=== PATIENT | male | born 1935 | race Caucasian/White ===

== ENCOUNTER → 2016-10-10 | Outpatient (CLI) | payer MEDICARE, BC | LOC: OD 10:29 | PROVIDERS: ATTEND Family Medicine | DX: R06.89 Other abnormalities of breathing (principal) | CPT/HCPCS: 71020 ==

== ENCOUNTER → 2017-04-28 | Outpatient (CLI) | payer MEDICARE, BC ==
--- NOTE | 2017-04-28 10:28 | RADIOLOGY REPORT (SQ) ---
EXAM DESCRIPTION: ARTERIAL LOWER EXTREM BILAT; [employer]TD; [employer] PRO COMPLETED DATE/TIME: 04/28/2017 10:06 am REASON FOR STUDY: PAD I70.25 ATHSCL [place] ARTERIES OF EXTREMITIES W ULCERATION COMPARISON: None. TECHNIQUE: Dynamic and static hernandez scale and color images acquired of the lower extremity arteries. Additional selected spectral images recorded. ABIs recorded. LIMITATIONS: None. FINDINGS: RIGHT LEG: ABIS: 0.92 to 1.02. INFLOW ARTERIES: Normal, no obstruction evident. FEMORAL ARTERIES:Multiphasic waveforms. Normal, no velocity elevation to suggest focal stenosis. Norm al color Doppler evaluation. No aneurysm. POPLITEAL ARTERY:Biphasic waveforms. Normal, no velocity elevation to suggest focal stenosis. Normal color Doppler evaluation. No aneurysm. PATENT TIBIOPERONEAL TRUNK AND 3 VESSEL RUNOFF: Biphasic waveforms with normal color flow TBI: Not performed. OTHER: Right toe plethysmography demonstrates pulsatility. There is decreased amplitude of the wave forms and delayed upstroke indicating mild small vessel disease LEFT LEG: ABIS: 0.92 to 1.17 INFLOW ARTERIES: Normal, no obstruction evident. FEMORAL ARTERIES:Multiphasic waveforms. Normal, no velocity elevation to suggest focal stenosis. Norm al color Doppler evaluation. No aneurysm. POPLITEAL ARTERY:Multiphasic waveforms. Normal, no velocity elevation to suggest focal stenosis. Norm al color Doppler evaluation. No aneurysm. PATENT TIBIOPERONEAL TRUNK AND 3 VESSEL RUNOFF: Yes, normal vessels. TBI: Not performed. OTHER: Left toe plethysmography demonstrates pulsatility. There is decreased amplitude of the wavef orms and delayed upstroke indicating mild small vessel disease. IMPRESSION: NORMAL BILATERAL LOWER EXTREMITY ARTERIAL DOPPLER WITH ABIs. COMMENT: [facility] NORMAL: Greater than 1.0 MINIMAL DISEASE: 0.9 to 1.0 CLAUDICATION: 0.5 to 0.9 SEVERE ARTERIAL DISEASE: Less than 0.5 [facility] NORMAL: Greater than 1.0 (1.2 If Heavy Calcifications) NORMAL TO MILD ISCHEMIA: 0.8 to 1.0 MODERATE ISCHEMIA: 0.4 to 0.8 SEVERE ISCHEMIA: Less than 0.4 TECHNICAL DOCUMENTATION: JOB ID: [id number]- All Rights Reserved
--- NOTE | 2017-04-28 10:28 | RADIOLOGY REPORT (SQ) ---
EXAM DESCRIPTION: ARTERIAL LOWER EXTREM BILAT; [employer]; [employer] PRO COMPLETED DATE/TIME: 04/28/2017 10:06 am REASON FOR STUDY: PAD I70.25 ATHSCL [place] ARTERIES OF EXTREMITIES W ULCERATION COMPARISON: None. TECHNIQUE: Dynamic and static hernandez scale and color images acquired of the lower extremity arteries. Additional selected spectral images recorded. ABIs recorded. LIMITATIONS: None. FINDINGS: RIGHT LEG: ABIS: 0.92 to 1.02. INFLOW ARTERIES: Normal, no obstruction evident. FEMORAL ARTERIES:Multiphasic waveforms. Normal, no velocity elevation to suggest focal stenosis. Norm al color Doppler evaluation. No aneurysm. POPLITEAL ARTERY:Biphasic waveforms. Normal, no velocity elevation to suggest focal stenosis. Normal color Doppler evaluation. No aneurysm. PATENT TIBIOPERONEAL TRUNK AND 3 VESSEL RUNOFF: Biphasic waveforms with normal color flow TBI: Not performed. OTHER: Right toe plethysmography demonstrates pulsatility. There is decreased amplitude of the wave forms and delayed upstroke indicating mild small vessel disease LEFT LEG: ABIS: 0.92 to 1.17 INFLOW ARTERIES: Normal, no obstruction evident. FEMORAL ARTERIES:Multiphasic waveforms. Normal, no velocity elevation to suggest focal stenosis. Norm al color Doppler evaluation. No aneurysm. POPLITEAL ARTERY:Multiphasic waveforms. Normal, no velocity elevation to suggest focal stenosis. Norm al color Doppler evaluation. No aneurysm. PATENT TIBIOPERONEAL TRUNK AND 3 VESSEL RUNOFF: Yes, normal vessels. TBI: Not performed. OTHER: Left toe plethysmography demonstrates pulsatility. There is decreased amplitude of the wavef orms and delayed upstroke indicating mild small vessel disease. IMPRESSION: NORMAL BILATERAL LOWER EXTREMITY ARTERIAL DOPPLER WITH ABIs. COMMENT: [facility] NORMAL: Greater than 1.0 MINIMAL DISEASE: 0.9 to 1.0 CLAUDICATION: 0.5 to 0.9 SEVERE ARTERIAL DISEASE: Less than 0.5 [facility] NORMAL: Greater than 1.0 (1.2 If Heavy Calcifications) NORMAL TO MILD ISCHEMIA: 0.8 to 1.0 MODERATE ISCHEMIA: 0.4 to 0.8 SEVERE ISCHEMIA: Less than 0.4 TECHNICAL DOCUMENTATION: JOB ID: [id number]- All Rights Reserved
--- NOTE | 2017-04-28 10:28 | RADIOLOGY REPORT (SQ) ---
EXAM DESCRIPTION: ARTERIAL LOWER EXTREM BILAT; [employer] LTD; [employer] ARTERIAL PRO COMPLETED DATE/TIME: 04/28/2017 10:06 am REASON FOR STUDY: PAD I70.25 ATHSCL [place] ARTERIES OF EXTREMITIES W ULCERATION COMPARISON: None. TECHNIQUE: Dynamic and static hernandez scale and color images acquired of the lower extremity arteries. Additional selected spectral images recorded. ABIs recorded. LIMITATIONS: None. FINDINGS: RIGHT LEG: ABIS: 0.92 to 1.02. INFLOW ARTERIES: Normal, no obstruction evident. FEMORAL ARTERIES:Multiphasic waveforms. Normal, no velocity elevation to suggest focal stenosis. Norm al color Doppler evaluation. No aneurysm. POPLITEAL ARTERY:Biphasic waveforms. Normal, no velocity elevation to suggest focal stenosis. Normal color Doppler evaluation. No aneurysm. PATENT TIBIOPERONEAL TRUNK AND 3 VESSEL RUNOFF: Biphasic waveforms with normal color flow TBI: Not performed. OTHER: Right toe plethysmography demonstrates pulsatility. There is decreased amplitude of the wave forms and delayed upstroke indicating mild small vessel disease LEFT LEG: ABIS: 0.92 to 1.17 INFLOW ARTERIES: Normal, no obstruction evident. FEMORAL ARTERIES:Multiphasic waveforms. Normal, no velocity elevation to suggest focal stenosis. Norm al color Doppler evaluation. No aneurysm. POPLITEAL ARTERY:Multiphasic waveforms. Normal, no velocity elevation to suggest focal stenosis. Norm al color Doppler evaluation. No aneurysm. PATENT TIBIOPERONEAL TRUNK AND 3 VESSEL RUNOFF: Yes, normal vessels. TBI: Not performed. OTHER: Left toe plethysmography demonstrates pulsatility. There is decreased amplitude of the wavef orms and delayed upstroke indicating mild small vessel disease. IMPRESSION: NORMAL BILATERAL LOWER EXTREMITY ARTERIAL DOPPLER WITH ABIs. COMMENT: [facility] NORMAL: Greater than 1.0 MINIMAL DISEASE: 0.9 to 1.0 CLAUDICATION: 0.5 to 0.9 SEVERE ARTERIAL DISEASE: Less than 0.5 [facility] NORMAL: Greater than 1.0 (1.2 If Heavy Calcifications) NORMAL TO MILD ISCHEMIA: 0.8 to 1.0 MODERATE ISCHEMIA: 0.4 to 0.8 SEVERE ISCHEMIA: Less than 0.4 TECHNICAL DOCUMENTATION: JOB ID: [id number]- All Rights Reserved
== END ==
LOC: SP 08:22
PROVIDERS: ATTEND Preventive Medicine Undersea and Hyperbaric Medicine
DX: I70.25 Atherosclerosis of native arteries of other extremities with ulceration (principal)
CPT/HCPCS: 93922; 93925

== ENCOUNTER → 2017-11-12 | Outpatient (CLI) | payer MEDICARE, BC ==
[~2017-11-12] MED LIST: REGADENOSON INJ 0.4 MG/5 ML DISP.SYRIN IV ONE
--- NOTE | 2017-11-13 11:58 | DRAGON STRESS TEST REPORT ---
INTRAVENOUS LEXISCAN CARDIOLITE STRESS TEST USING SINGLE PHOTON EMMISION COMPUTERIZED TOMOGRAPHIC. DATE OF PROCEDURE: November 12, 2017, INDICATION : Coronary artery disease and shortness of breath CARDIAC RISK FACTORS: Coronary artery disease status post CABG RESTING EKG: Atrial fibrillation with ventricular paced beats on baseline EKG STRESS EKG: No significant changes noted with LexiScan bolus REASON FOR TERMINATION: Protocol. PROCEDURE REPORT: Baseline heart rate 67 beats per minute with blood pressure of 119/62. Patient had no significant complaints. Heart rate at 2 minutes post bolus 93 with a blood pressure of 134/69. 3 minutes post bolus heart rate 81 with blood pressure of 140/71. No significant EKG changes were noted. Patient had no significant complaints during the procedure or postprocedure. Patient injected with Aminophyllin 75 mg at 3 minutes or later after Lexiscan bolus. CONCLUSIONS: Normal EKG and hemodynamic response to IV LexiScan. NUCLEAR DATA: At rest the patient was given 12 6.92 millicuries of technetium 99 sestamibi injected intravenously. As per protocol rest gated SPECT images were obtained. On day of stress test, the patient was given intravenous LexiScan at a dose of 0.4 mg in 5 mL intravenously, followed by flush with normal saline. Subsequently the stress dose of 36.5 millicuries of technetium 99 sestamibi was injected intravenously. As per protocol stress gated images were obtained. NUCLEAR INTERPRETATION: Both raw and processed data were used for interpretation. Visual, qualitative, computer-generated quantitative data was used. There was good myocardial uptake of technetium compound. Motion artifact and soft tissue attenuations were noted. Increased visceral uptake was noted. A small area of transient perfusion defect noted in the inferoapex consistent with mild ischemia, SDS of 1 therefore may not be clinically significant., No definitive areas of fixed perfusion defect or scars noted. EKG gated imaging showed LV EF at 57 %, rest and stress gated EF similar visually. T. I D. ratio was 0.98. Lung heart ratio noted to be within normal limits 0.31. No significant extracardiac and abnormal radiotracer activities were noted. RV free wall uptake was noted to be WNL. IMPRESSION: Also refer to comments under nuclear interpretation. Also test results needs to be interpreted in the context of pretest probability. 1. Small area of transient perfusion defect noted in the inferoapex consistent with mild ischemia, SDS of 1 therefore may not be clinically significant. 2. There is no definitive scintigraphic evidence of myocardial infarction/scar. 3. EKG gated imaging shows left ventricular ejection fraction of approx. 57 %. 4. Clinical correlation requested as occasionally single vessel disease or balanced ischemia could be missed. In approximately 10% of the cases Lexiscan may not cause adequate vasodilatory stress. RECOMMENDATIONS: Aggressive risk factor modification and medical management. Further evaluation may be needed if continued symptoms or other high risk indicators are noted on clinical evaluation. Close cardiology follow-up is also recommended. Clinical correlation with echocardiogram derived ejection fraction. Inability to exercise by itself can lead to increased cardiovascular event risks. Consider cardiology consultation and or follow-up if clinically indicated. I am available for cardiology evaluation and consultation if requested by the manager automotive, unless patient already has a shuttle filler. DAWIT
== END ==
LOC: RAD 07:33
PROVIDERS: ATTEND Internal Medicine Cardiovascular Disease
DX: I25.10 Atherosclerotic heart disease of native coronary artery without angina pectoris (principal); R06.02 Shortness of breath
CPT/HCPCS: 93017; 78452; A9500; J2785; Q9969

== ENCOUNTER → 2017-12-23 | Outpatient (CLI) | payer MEDICARE, BC ==
[2017-12-23 17:06] LABS: ANION GAP 11 (5-19); BLOOD UREA NITROGEN 25 mg/dL (7-20); CALCIUM 10.2 mg/dL (8.4-10.2); CARBON DIOXIDE 30 mmol/L (22-30); CHLORIDE 98 mmol/L (98-107); GLUCOSE 97 mg/dL (75-110); POTASSIUM 4.7 mmol/L (3.6-5.0); SODIUM 139.3 mmol/L (137-145)
== END ==
LOC: OD 16:17
PROVIDERS: ATTEND Internal Medicine Cardiovascular Disease
DX: I10 Essential (primary) hypertension (principal)
CPT/HCPCS: 36415; 80048

== ENCOUNTER → 2018-01-19 | Outpatient (CLI) | payer MEDICARE, BC ==
--- NOTE | 2018-01-19 14:35 | RADIOLOGY REPORT (SQ) ---
EXAM DESCRIPTION: CHEST PA/LATERAL COMPLETED DATE/TIME: 01/19/2018 12:07 pm REASON FOR STUDY: RALES COMPARISON: 10/10/2016 EXAM PARAMETERS: NUMBER OF VIEWS: two views TECHNIQUE: Digital Frontal and Lateral radiographic views of the chest acquired. RADIATION DOSE: NA LIMITATIONS: none FINDINGS: LUNGS AND PLEURA: COPD. No evidence of pulmonary edema or pneumonia. MEDIASTINUM AND HILAR STRUCTURES: No masses or contour abnormalities. HEART AND VASCULAR STRUCTURES: Stable heart size. BONES: No acute findings. HARDWARE: CABG. Pacemaker. OTHER: No other significant finding. IMPRESSION: No acute findings in the chest. TECHNICAL DOCUMENTATION: JOB ID: [id number] [employer]- All Rights Reserved Reading location - IP/workstation name: [email or web address]
== END ==
LOC: OD 11:57
PROVIDERS: ATTEND Family Medicine
DX: R09.89 Other specified symptoms and signs involving the circulatory and respiratory systems (principal)
CPT/HCPCS: 71046

== ENCOUNTER 2018-10-02 09:25 | Observation (INO) | payer MEDICARE, BC ==
--- NOTE | 2018-10-02 10:02 | ER Document Report ---
ED Hand/Wrist Injury - General Chief Complaint: Wrist Injury Stated Complaint: WRIST PAIN Time Seen by Provider: 10/02/18 09:54 Mode of Arrival: Ambulatory Information source: Patient Notes: 82-year-old male presents emergency department with complaints of right wrist pain for the last 2 days. Patient states that 2 days ago he was "goofing off" and fell landing on his right wrist. He immediately began having some pain. Patient states that he has been icing the area and taking [id number] medication for symptom relief. He states that the pain is still there as well as warmth, redness, and swelling. Patient denies any head injury or loss of consciousness. He denies any numbness, tingling. Pain is worse with movement of the wrist. No alleviating factors. TRAVEL OUTSIDE OF THE [place] IN LAST 30 DAYS: No - HPI Injury to: Wrist Onset: Last week Where: Home Timing: Constant Quality of pain: Achy Severity: Moderate Pain Level: Denies Context: Fall - Related Data Allergies/Adverse Reactions: oxycodone [From OxyContin] Allergy (Verified 10/02/18 09:26) Past Medical History - General Information source: Patient - Social History Smoking Status: Former Smoker Family History: Reviewed & Not Pertinent - Past Medical History Cardiac Medical History: Reports: Hx Atrial Fibrillation, Hx Congestive Heart Failure, Hx Coronary Artery Disease, Hx Hypertension Endocrine Medical History: Reports: Hx Diabetes Mellitus Type 2 Malignancy Medical History: Reports Hx Prostate Cancer Psychiatric Medical History: Reports: Hx Anxiety, Hx Depression Past Surgical History: Reports: Hx Cardiac Catheterization, Hx Cardiac Surgery, Hx Coronary Artery Bypass Graft, Hx Herniorrhaphy, Hx Pacemaker Review of Systems - Review of Systems Constitutional: No symptoms reported EENT: No symptoms reported Cardiovascular: No symptoms reported Respiratory: No symptoms reported Gastrointestinal: No symptoms reported Genitourinary: No symptoms reported Musculoskeletal: Joint swelling Skin: No symptoms reported Hematologic/Lymphatic: No symptoms reported Neurological/Psychological: No symptoms reported -: Yes All other systems reviewed and negative Physical Exam - Vital signs Vitals: Temp Pulse Resp BP Pulse Ox 97.6 F 88 17 156/66 H 100 10/02/18 09:29 10/02/18 09:29 10/02/18 09:29 10/02/18 09:29 10/02/18 09:29 - Notes Notes: PHYSICAL EXAMINATION: GENERAL: Well-appearing, well-nourished and in no acute distress. HEAD: Atraumatic, normocephalic. EYES: Pupils equal round and reactive to light, extraocular movements intact, sclera anicteric, conjunctiva are normal. ENT: Nares patent, oropharynx clear without exudates. Moist mucous membranes. NECK: Normal range of motion, supple without lymphadenopathy LUNGS: Breath sounds clear to auscultation bilaterally and equal. No wheezes rales or rhonchi. HEART: Regular rate and rhythm without murmurs ABDOMEN: Soft, nontender, nondistended abdomen. No guarding, no rebound. No masses appreciated. Musculoskeletal: Right dorsal wrist erythema, warmth, swelling and tenderness to palpation. 2+ radial pulse. Right hand is neurologically intact. Pain with movement of the right wrist both active and passive. Small pinpoint abrasions to the dorsal wrist. NEUROLOGICAL: Cranial nerves grossly intact. Normal speech, normal gait. Normal sensory, motor exams PSYCH: Normal mood, normal affect. SKIN: Warm, Dry, normal turgor, no rashes or lesions noted. Course - Re-evaluation Re-evalutation: 10/02/18 12:45 Patient has significant pain with passive movement of the right wrist. White blood cell count was normal. CRP and ESR are both elevated. Blood cultures obtained. Patient was started on vancomycin and Rocephin for possible septic joint. I spoke with Dr. Ponce, orthopedic surgery. He states that he will consult on the patient. I spoke with the hospitalist. Dr. Gambino is agreeable with admission. 10/02/18 12:46 10/02/18 13:01 - Vital Signs Vital signs: Temp Pulse Resp BP Pulse Ox 97.6 F 88 17 156/66 H 100 10/02/18 09:29 10/02/18 09:29 10/02/18 09:29 10/02/18 09:29 10/02/18 09:29 - Laboratory Result Diagrams: 10/02/18 11:05 10/02/18 11:05 Laboratory results interpreted by me: 10/02/18 10/02/18 11:05 11:05 RBC 3.82 L Hgb 11.3 L Hct 33.9 L RDW 15.6 H ESR 76 H BUN 27 H Glucose 112 H ALT 20 L C-Reactive Protein 28.4 H Discharge - Discharge Clinical Impression: Septic arthritis Qualifiers: Septic arthritis location: wrist Septic arthritis organism: due to unspecified organism Laterality: right Qualified Code(s): M00.9 - Pyogenic arthritis, unspecified Condition: Stable Disposition: ADMITTED OBSERVATION Admitting Provider: Hospitalist Unit Admitted: Medical Floor Referrals: DORETHA VERA MD [Primary Care Provider] - Follow up as needed
--- NOTE | 2018-10-02 10:36 | RADIOLOGY REPORT (SQ) ---
EXAM DESCRIPTION: WRIST RIGHT 3 VIEWS COMPLETED DATE/TIME: 10/02/2018 10:25 am REASON FOR STUDY: trauma COMPARISON: None. NUMBER OF VIEWS: Three views. TECHNIQUE: AP, lateral, and oblique radiographic images acquired of the right wrist. LIMITATIONS: None. FINDINGS: MINERALIZATION: Normal. BONES: No acute fracture or dislocation. No worrisome bone lesions. Normal alignment. SOFT TISSUES: No soft tissue swelling. No foreign body. OTHER: No other significant finding. IMPRESSION: NEGATIVE STUDY OF THE RIGHT WRIST. NO RADIOGRAPHIC EVIDENCE OF ACUTE INJURY. TECHNICAL DOCUMENTATION: JOB ID: [id number] [employer]- All Rights Reserved Reading location - IP/workstation name: [email or web address] [id number]
[2018-10-02 11:29] LABS: ABSOLUTE EOSINOPHILS # (AUTO) 0.1 10^3/uL (0.0-0.6); ABSOLUTE LYMPHOCYTES (AUTO) 1.2 10^3/uL (0.5-4.7); ABSOLUTE MONOCYTES (AUTO) 0.9 10^3/uL (0.1-1.4); ABSOLUTE NEUT (AUTO) 6.1 10^3/uL (1.7-8.2); BASOPHILS % (AUTO) 0.5 % (0-2); EOSINOPHILS % (AUTO) 1.7 % (0-6); HEMATOCRIT 33.9 % (37.9-51.0); HEMOGLOBIN 11.3 g/dL (13.5-17.0); LYMPHOCYTES % (AUTO) 13.9 % (13-45); MEAN CORPUSCULAR HEMOGLOBIN 29.7 pg (27.0-33.4); MEAN CORPUSCULAR HGB CONC 33.4 g/dL (32.0-36.0); MEAN CORPUSCULAR VOLUME 89 fl (80-97); MONOCYTES % (AUTO) 10.7 % (3-13); PLATELET COUNT 199 10^3/uL (150-450); RED BLOOD COUNT 3.82 10^6/uL (4.35-5.55); RED CELL DISTRIBUTION WIDTH 15.6 % (11.5-14.0); SEGMENTED NEUTROPHILS % (AUTO) 73.2 % (42-78); TOTAL CELLS COUNTED % (AUTO) 100 %; WHITE BLOOD COUNT 8.3 10^3/uL (4.0-10.5)
[2018-10-02 11:58] LABS: ALANINE AMINOTRANSFERASE 20 U/L (21-72); ALBUMIN 4.5 g/dL (3.5-5.0); ALKALINE PHOSPHATASE 58 U/L (38-126); ANION GAP 10 (5-19); ASPARTATE AMINO TRANSFERASE 24 U/L (17-59); BILIRUBIN,DIRECT 0.2 mg/dL (0.0-0.4); BILIRUBIN,TOTAL 0.6 mg/dL (0.2-1.3); BLOOD UREA NITROGEN 27 mg/dL (7-20); C-REACTIVE PROTEIN 28.4 mg/L (<10.0); CALCIUM 9.8 mg/dL (8.4-10.2); CARBON DIOXIDE 30 mmol/L (22-30); CHLORIDE 100 mmol/L (98-107); GLUCOSE 112 mg/dL (75-110); POTASSIUM 4.9 mmol/L (3.6-5.0); SODIUM 139.9 mmol/L (137-145); TOTAL PROTEIN 7.9 g/dL (6.3-8.2)
[2018-10-02 12:08] LABS: ERYTHROCYTE SEDIMENTATION RATE 76 mm/hr (0-20)
[2018-10-02] MEDS ORDERED: VANCOMYCIN HCL INJ 1000 MG VIAL IV ONE (12:39)
[2018-10-02] MEDS ORDERED: CEFTRIAXONE INJ 1000 MG VIAL IV ONE (12:41)
[2018-10-02] MEDS ORDERED: MAGNESIUM HYDROXIDE SUSP 30 ML UDCUP PO PRN (14:33)
[2018-10-02] MEDS ORDERED: IPRATROPIUM/ALBUTEROL 0.5-2.5 MG/3 ML AMPUL NEB PRN (14:33)
[2018-10-02] MEDS ORDERED: ONDANSETRON 4 MG TAB.RAPDIS PO PRN (14:33)
[2018-10-02] MEDS ORDERED: ACETAMINOPHEN 325 MG TABLET PO PRN (14:33)
[2018-10-02] MEDS ORDERED: FLUOCINONIDE 0.05% CREAM 15 GM TP PRN (14:39)
[2018-10-02] MEDS ORDERED: DEXTROSE 40% GEL 15 GM TUBE PO PRN ×2 (14:40)
[2018-10-02] MEDS ORDERED: GLUCAGON,HUMAN RECOMB 1 MG INJ IM PRN (14:40)
[2018-10-02] MEDS ORDERED: INSULIN LISPRO 100 UNIT/ML 3 ML VIAL SUBCUT PRN (14:40)
[2018-10-02] MEDS ORDERED: DEXTROSE 50%-WATER 25 GM/50 ML DISP.SYRIN IV PRN ×2 (14:40)
[2018-10-02] MEDS ORDERED: TRAMADOL HCL 50 MG TABLET PO PRN (15:15)
--- NOTE | 2018-10-02 15:15 | PDOC H&P ---
History of Present Illness Admission Date/PCP: 10/02/18 13:54 DORETHA VERA MD Patient complains of: This gentleman presents to the emergency room with complaints of right wrist pain for the last 2 days History of Present Illness: ANAHI DOWNING JR is a 82 year old male This gentleman presents to the emergency room with complaints of right wrist pain for the last 2 days.. Patient said he fell and landed on his right wrist and has had progressive pain since then the hand is described as red, as well as swelling and is unable to bend. X-ray done in the emergency room reveals no acute pathology. There is evidence of a fracture. Of note patient says he is on Xarelto for atrial fibrillation Past Medical History Cardiac Medical History: Reports: Atrial Fibrillation, Congestive Heart Failure, Coronary Artery Disease, Hypertension Endocrine Medical History: Reports: Diabetes Mellitus Type 2 Psychiatric Medical History: Reports: Depression Past Surgical History Past Surgical History: Reports: Cardiac Catheterization, Coronary Artery Bypass Graft, Herniorrhaphy, Pacemaker Social History Information Source: Patient Lives with: Family Smoking Status: Former Smoker - Advance Directive Resuscitation Status: Full Code Family History Family History: Reviewed & Not Pertinent Parental Family History Reviewed: Yes Children Family History Reviewed: Yes Sibling(s) Family History Reviewed.: Yes Medication/Allergy Home Medications: Aspirin [Ecotrin 81 mg EC Tablet] 81 mg PO DAILY 10/02/18 Atorvastatin Calcium [Lipitor 20 mg Tablet] 20 mg PO QHS 10/02/18 Calcium Carb/D3/Magnesium/Zinc [You Mag Zinc + D Tablet] 1 tab PO DAILY 10/02/18 Citalopram Hydrobromide [Celexa 40 mg Tablet] 40 mg PO DAILY 10/02/18 Diazepam [Valium 5 mg Tablet] 5 mg PO QHS 10/02/18 Furosemide [Lasix 20 mg Tablet] 20 mg PO QAM 10/02/18 Metformin HCl [Glucophage] 1,000 mg PO BID 10/02/18 Metoprolol Succinate [Toprol Xl 25 mg Tab.sr] 25 mg PO DAILY 10/02/18 Multivitamin [Multiple Vitamins] 1 each PO DAILY 10/02/18 Potassium Chloride [Klor-Con 10 Meq Capsule ER] 10 meq PO DAILY 10/02/18 Ropinirole HCl [Requip] 1.5 mg PO QHS 10/02/18 Allergies/Adverse Reactions: oxycodone [From OxyContin] Allergy (Verified 10/02/18 09:26) Review of Systems All systems: reviewed and no additional remarkable complaints except as stated Cardiovascular: PRESENT: as per HPI. ABSENT: chest pain Integumentary: PRESENT: pruritus, rash Physical Exam Vital Signs: Temp Pulse Resp BP Pulse Ox 97.6 F 88 17 156/66 H 100 10/02/18 09:29 10/02/18 09:29 10/02/18 09:29 10/02/18 09:29 10/02/18 09:29 Intake & Output 10/01/18 10/02/18 10/03/18 06:59 06:59 06:59 Weight 82.2 kg General appearance: PRESENT: no acute distress, other - elderly male, frail, in no distress Head exam: PRESENT: atraumatic Eye exam: PRESENT: conjunctiva pink, EOMI, PERRLA. ABSENT: scleral icterus Neck exam: ABSENT: carotid bruit, JVD, lymphadenopathy, thyromegaly Respiratory exam: PRESENT: clear to auscultation luis. ABSENT: rales, rhonchi, wheezes Cardiovascular exam: PRESENT: RRR, +S1, +S2, other - Pacemaker L chest wall. ABSENT: diastolic murmur, rubs, systolic murmur GI/Abdominal exam: PRESENT: normal bowel sounds, soft. ABSENT: distended, guarding, mass, organolmegaly, rebound, tenderness Rectal exam: PRESENT: deferred Musculoskeletal exam: PRESENT: other - R wrist erythema and exquisitely tender, Diminished range of movement due to pain Neurological exam: PRESENT: alert, awake, oriented to person, oriented to place, oriented to time, oriented to situation, CN II-XII grossly intact. ABSENT: m otor sensory deficit Skin exam: PRESENT: other - scaly plaque dry skin on lower extremities scattered scratch gallegos Results Laboratory Results: 10/02/18 11:05 10/02/18 11:05 10/02/18 10/02/18 11:05 11:05 WBC 8.3 RBC 3.82 L Hgb 11.3 L Hct 33.9 L MCV 89 MCH 29.7 MCHC 33.4 RDW 15.6 H Plt Count 199 Seg Neutrophils % 73.2 Lymphocytes % 13.9 Monocytes % 10.7 Eosinophils % 1.7 Basophils % 0.5 Absolute Neutrophils 6.1 Absolute Lymphocytes 1.2 Absolute Monocytes 0.9 Absolute Eosinophils 0.1 Absolute Basophils 0.0 Sodium 139.9 Potassium 4.9 Chloride 100 Carbon Dioxide 30 Anion Gap 10 BUN 27 H Creatinine 1.03 Est GFR ( Amer) > 60 Est GFR (Non-Af Amer) > 60 Glucose 112 H Calcium 9.8 Total Bilirubin 0.6 AST 24 ALT 20 L Alkaline Phosphatase 58 C-Reactive Protein 28.4 H Total Protein 7.9 Albumin 4.5 Impressions: Wrist X-Ray 10/02/18 09:57 IMPRESSION: NEGATIVE STUDY OF THE RIGHT WRIST. NO RADIOGRAPHIC EVIDENCE OF ACUTE INJURY. Assessment & Plan - Diagnosis (1) Wrist pain, acute Qualifiers: Laterality: right Qualified Code(s): M25.531 - Pain in right wrist Plan: Post injury No evidence of any fracture. Possibility of gout or pseudogout Will check Uric acid check ESR Patient says he is on Xarelto? so will avoid NSAID (2) Atrial fibrillation Is this a current diagnosis for this admission?: Yes Plan: Chronic, currently sinus\Patient has PPM (3) Psoriasis Is this a current diagnosis for this admission?: Yes Plan: Patient gives a history however he is on no meds Will place on Lidex - Time Time Spent: 30 to 50 Minutes Medications reviewed and adjusted accordingly: Yes Anticipated discharge: Home Within: within 48 hours - Inpatient Certification Based on my medical assessment, after consideration of the patient's comorbidities, presenting symptoms, or acuity I expect that the services needed warrant INPATIENT care.: Yes Medical Necessity: Need for Pain Control
[2018-10-02] MEDS ORDERED: (PENDING PHARMACY ID) (Metformin Hcl [Glucophage] 500 MG) PO SCH (18:00)
[2018-10-02] MEDS: METFORMIN HCL 500 MG TABLET PO SCH (18:07)
[2018-10-02] MEDS: ENOXAPARIN SODIUM INJ 40 MG/0.4 ML DISP.SYRIN SUBCUT SCH (18:07)
[2018-10-02] MEDS: FAMOTIDINE 20 MG TABLET PO SCH (21:07)
[2018-10-02] MEDS: ATORVASTATIN CALCIUM 20 MG TABLET PO SCH (21:07)
[2018-10-02] MEDS: DIAZEPAM 5 MG TABLET PO SCH (21:07)
[2018-10-03 05:17] LABS: ABSOLUTE BASOPHILS # (AUTO) 0.1 10^3/uL (0.0-0.2); ABSOLUTE EOSINOPHILS # (AUTO) 0.3 10^3/uL (0.0-0.6); ABSOLUTE LYMPHOCYTES (AUTO) 1.6 10^3/uL (0.5-4.7); BASOPHILS % (AUTO) 0.8 % (0-2); EOSINOPHILS % (AUTO) 3.1 % (0-6); HEMATOCRIT 31.6 % (37.9-51.0); HEMOGLOBIN 10.8 g/dL (13.5-17.0); LYMPHOCYTES % (AUTO) 17.7 % (13-45); MEAN CORPUSCULAR HGB CONC 34.2 g/dL (32.0-36.0); MEAN CORPUSCULAR VOLUME 88 fl (80-97); MONOCYTES % (AUTO) 11.4 % (3-13); PLATELET COUNT 182 10^3/uL (150-450); RED BLOOD COUNT 3.61 10^6/uL (4.35-5.55); RED CELL DISTRIBUTION WIDTH 15.8 % (11.5-14.0); TOTAL CELLS COUNTED % (AUTO) 100 %; WHITE BLOOD COUNT 8.9 10^3/uL (4.0-10.5)
[2018-10-03 05:24] LABS: ANION GAP 10 (5-19); BLOOD UREA NITROGEN 27 mg/dL (7-20); CALCIUM 9.4 mg/dL (8.4-10.2); CARBON DIOXIDE 25 mmol/L (22-30); CHLORIDE 102 mmol/L (98-107); GLUCOSE 99 mg/dL (75-110); POTASSIUM 4.4 mmol/L (3.6-5.0); SODIUM 137.4 mmol/L (137-145)
[2018-10-03] MEDS: CITALOPRAM HYDROBROMIDE 20 MG TABLET PO SCH (09:32)
[2018-10-03] MEDS: FUROSEMIDE 20 MG TABLET PO SCH (09:32)
[2018-10-03] MEDS: METFORMIN HCL 500 MG TABLET PO SCH ×2 (09:32→17:19)
[2018-10-03] MEDS: DOCUSATE SODIUM 100 MG CAPSULE PO SCH (09:32)
[2018-10-03] MEDS: ASPIRIN 81 MG TABLET, ENT COATED PO SCH (09:33)
[2018-10-03] MEDS: POTASSIUM CHLORIDE 10 MEQ CAPSULE.ER PO SCH (09:33)
[2018-10-03] MEDS: ENOXAPARIN SODIUM INJ 40 MG/0.4 ML DISP.SYRIN SUBCUT SCH (09:34)
[2018-10-03] MEDS: CALCIUM CARBONATE 250 MG/VITAMIN D3 125 UNIT TABLET PO SCH (09:34)
[2018-10-03] MEDS: FAMOTIDINE 20 MG TABLET PO SCH ×2 (09:34→21:27)
[2018-10-03] MEDS: METOPROLOL SUCCINATE 25 MG TAB.SR.24H PO SCH (09:34)
[2018-10-03] MEDS: MULTIVITAMIN TABLET PO SCH (09:34)
[2018-10-03] MEDS ORDERED: ZINC PO SCH (10:00)
[2018-10-03] MEDS ORDERED: MAGNESIUM PO SCH (10:00)
[2018-10-03] MEDS ORDERED: CALCIUM CARB PO SCH (10:00)
[2018-10-03] MEDS ORDERED: D3 PO SCH (10:00)
[2018-10-03] MEDS ORDERED: (PENDING PHARMACY ID) (Citalopram Hydrobromide [Celexa 40 Mg Tablet] 40 MG) PO SCH (10:00)
[2018-10-03] MEDS: CEFTRIAXONE 1 GM/D5W RTU 1 GM/50 ML RTUPB IV SCH (11:28)
--- NOTE | 2018-10-03 15:49 | PDOC PROGRESS REPORT ---
Subjective Progress Note for:: 10/03/18 Subjective:: Patient admitted with right wrist pain after a fall. His wrist remains inflamed and erythematous although it does appear to be somewhat less tender today. He is on empiric antibiotic for questionable septic arthritis however I do not see any kind of infection. Patient is on Xarelto for chronic atrial fibrillation and so although the wrist x-ray did not show any fractures does seem to have some swelling around the joint as well will obtain a CT of the wrist to rule out hematoma or any other significant findings. He gives a prior history of gout and is to. Note is the fact that his uric acid is within normal which obviously does not rule out gout. Because he is to try and avoid any NSAID and will use it is a steroid to see if this gives him some relief. Reason For Visit: R WRIST CELLULITIS Physical Exam Vital Signs: Temp Pulse Resp BP Pulse Ox 97.6 F 87 18 135/65 H 97 10/03/18 12:00 10/03/18 12:00 10/03/18 12:00 10/03/18 12:00 10/03/18 12:00 Intake & Output 10/02/18 10/03/18 10/04/18 06:59 06:59 06:59 Intake Total 50 Output Total 300 Balance -300 50 Weight 82.1 kg General appearance: PRESENT: no acute distress, cooperative, hard of hearing, other - elderly Head exam: PRESENT: atraumatic Teeth exam: PRESENT: poor dentation Respiratory exam: PRESENT: clear to auscultation luis. ABSENT: rales, rhonchi, wheezes Cardiovascular exam: PRESENT: RRR, +S1, +S2, other - pacemaker L chest wall. ABSENT: diastolic murmur, rubs, systolic murmur GI/Abdominal exam: PRESENT: normal bowel sounds, soft. ABSENT: distended, guarding, mass, organolmegaly, rebound, tenderness Rectal exam: PRESENT: deferred Neurological exam: PRESENT: alert, awake, oriented to person, oriented to place, oriented to time, oriented to situation Psychiatric exam: PRESENT: appropriate affect Skin exam: PRESENT: rash - extensive scaly lower extremity rash, plaque, shiny white with scattered punctuate lesions Results Laboratory Results: 10/03/18 03:53 10/03/18 03:53 10/03/18 10/03/18 03:53 03:53 WBC 8.9 RBC 3.61 L Hgb 10.8 L Hct 31.6 L MCV 88 MCH 30.0 MCHC 34.2 RDW 15.8 H Plt Count 182 Seg Neutrophils % 67.0 Lymphocytes % 17.7 Monocytes % 11.4 Eosinophils % 3.1 Basophils % 0.8 Absolute Neutrophils 6.0 Absolute Lymphocytes 1.6 Absolute Monocytes 1.0 Absolute Eosinophils 0.3 Absolute Basophils 0.1 Sodium 137.4 Potassium 4.4 Chloride 102 Carbon Dioxide 25 Anion Gap 10 BUN 27 H Creatinine 0.99 Est GFR ( Amer) > 60 Est GFR (Non-Af Amer) > 60 Glucose 99 Calcium 9.4 Impressions: Wrist X-Ray 10/02/18 09:57 IMPRESSION: NEGATIVE STUDY OF THE RIGHT WRIST. NO RADIOGRAPHIC EVIDENCE OF ACUTE INJURY. Assessment & Plan - Diagnosis (1) Wrist pain, acute Qualifiers: Laterality: right Qualified Code(s): M25.531 - Pain in right wrist Is this a current diagnosis for this admission?: Yes Plan: Post injury No evidence of any fracture. CT scan as above (2) Atrial fibrillation Is this a current diagnosis for this admission?: Yes Plan: Chronic, currently sinus\Patient has PPM Continue Xarelto (3) Psoriasis Is this a current diagnosis for this admission?: Yes - Time Time Spent with patient: 15-24 minutes Medications reviewed and adjusted accordingly: Yes Anticipated discharge: Home Within: within 24 hours - Inpatient Certification Based on my medical assessment, after consideration of the patient's comorbidities, presenting symptoms, or acuity I expect that the services needed warrant INPATIENT care.: Yes Medical Necessity: Need for Pain Control, Risk of Complication if Not Cared For in Hospital
[2018-10-03] MEDS ORDERED: PREDNISONE 20 MG TABLET PO ONE (16:00)
[2018-10-03] MEDS ORDERED: RIVAROXABAN 10 MG TABLET PO SCH (17:00)
--- NOTE | 2018-10-03 18:57 | RADIOLOGY REPORT (SQ) ---
EXAM DESCRIPTION: CT RT UPPER EXTREMITY WITHOUT COMPLETED DATE/TIME: 10/03/2018 4:26 pm REASON FOR STUDY: Pain, swelling, R wrist A40.8 OTHER STREPTOCOCCAL SEPSIS COMPARISON: 10/02/2018 TECHNIQUE: Axial imaging performed through the right wrist with reformatted coronal and sagittal nathan ging windowed for bone and soft tissues. Images saved to PACS. 3D IMAGING: Were 3D images as MIP, SSD, or volume rendering performed at the work station? No. All CT scanners at this facility use dose modulation, iterative reconstruction, and/or weight based d osing when appropriate to reduce radiation dose to as low as reasonably achievable (ALARA). [facility]: Dose Right [facility]: CareDose [facility]: Dose Right [facility]: Teradose 4D [facility]: [employer] LIMITATIONS: None. RADIATION DOSE: mGy. FINDINGS: SOFT TISSUES: No soft tissue swelling. No full-thickness retracted tendon tear. Scattere d vascular calcifications. No radiopaque foreign body. No subcutaneous gas. BONES: No acute fracture. Round well corticated osseous body along the dorsal surface of the capitat e, likely sequelae of prior injury. No erosions. Mild widening of the scapholunate interval measuri ng 5- 6 mm. Alignment is otherwise normal. MINERALIZATION: Normal. OTHER: No other significant finding. IMPRESSION: 1. No acute fracture or dislocation. 2. Mild widening of the scapholunate interval, which may suggest underlying scapholunate ligamentous injury. TECHNICAL DOCUMENTATION: JOB ID: [id number] Quality ID # [id number]: Final reports with documentation of one or more dose reduction techniques (e.g., Au tomated exposure control, adjustment of the mA and/or kV according to patient size, use of iterative reconstruction technique) 2010 [employer]- All Rights Reserved Reading location - IP/workstation name: [email or web address]
[2018-10-03] MEDS: ATORVASTATIN CALCIUM 20 MG TABLET PO SCH (21:27)
[2018-10-03] MEDS: DIAZEPAM 5 MG TABLET PO SCH (21:27)
[2018-10-04] MEDS: FUROSEMIDE 20 MG TABLET PO SCH (07:44)
[2018-10-04] MEDS: METFORMIN HCL 500 MG TABLET PO SCH (07:44)
[2018-10-04] MEDS: ASPIRIN 81 MG TABLET, ENT COATED PO SCH (09:16)
[2018-10-04] MEDS: METOPROLOL SUCCINATE 25 MG TAB.SR.24H PO SCH (09:16)
[2018-10-04] MEDS: CITALOPRAM HYDROBROMIDE 20 MG TABLET PO SCH (09:16)
[2018-10-04] MEDS: FAMOTIDINE 20 MG TABLET PO SCH (09:16)
[2018-10-04] MEDS: MULTIVITAMIN TABLET PO SCH (09:16)
[2018-10-04] MEDS: CALCIUM CARBONATE 250 MG/VITAMIN D3 125 UNIT TABLET PO SCH (09:17)
[2018-10-04] MEDS: DOCUSATE SODIUM 100 MG CAPSULE PO SCH (09:17)
[2018-10-04] MEDS: POTASSIUM CHLORIDE 10 MEQ CAPSULE.ER PO SCH (09:17)
--- NOTE | 2018-10-04 10:44 | Physician Advisory Note ---
Physician Advisor ProgressNote .: Pursuant to the plan for Maria Fernanda Chávez, I have reviewed the medical record for this patient. Physician Advisor Statement: Please consider documenting, if you agree: 1. "probable Chronic ____ [systolic? diastolic? systolic on diastolic?] CHF, continued on Lasix & metoprolol" - no prior ECHO in [facility]; Cardiolite stress test 11/2017 states EF appx 57%, heart size was "nl" per prior CXR 2013 & "stable" on CXR 01/2018, (+)HTN, pt not on ACEI, ... Status: Medicare pt, in w/red/painful/swollen wrist s/p fall on it, no fx seen, covering for possible septic arthritis while evaluating for possible other cause(s), not felt safe for d/c after 1MN of eval/care due to still having redness/inflammation/pain and uncertain dx, still possibly septic arthritis requiring IV abx, while checking for possible hematoma or other cause by CT and trying steroid dose in case gout, which could make pt worse if it turns out to be due to infxn, in this diabetic pt. Appropriate for change to Inpatient status as of 10/03. thanks! CK
[2018-10-04] MEDS: CEFTRIAXONE 1 GM/D5W RTU 1 GM/50 ML RTUPB IV SCH (12:13)
--- NOTE | 2018-10-04 15:03 | PDOC PROGRESS REPORT ---
Subjective Progress Note for:: 10/04/18 Subjective:: 10/04/2018 no acute events in the last 24 hours. Patient is afebrile. Patient denies any complaints. pt Expressing desire to go home. Reason For Visit: R WRIST CELLULITIS Physical Exam Vital Signs: Temp Pulse Resp BP Pulse Ox 97.5 F 65 16 117/57 L 97 10/04/18 11:46 10/04/18 11:46 10/04/18 11:46 10/04/18 11:46 10/04/18 11:46 Intake & Output 10/03/18 10/04/18 10/05/18 06:59 06:59 06:59 Intake Total 1210 50 Output Total 300 Balance -300 1210 50 Weight 82.1 kg 80.9 kg General appearance: PRESENT: no acute distress Head exam: PRESENT: atraumatic Eye exam: PRESENT: PERRLA Mouth exam: PRESENT: dry mucosa Neck exam: ABSENT: carotid bruit, JVD, lymphadenopathy, thyromegaly Respiratory exam: PRESENT: clear to auscultation luis. ABSENT: rales, rhonchi, wheezes Cardiovascular exam: PRESENT: irregular rhythm, systolic murmur, tachycardia, other - pacemaker present Pulses: PRESENT: normal dorsalis pedis pul GI/Abdominal exam: PRESENT: normal bowel sounds, soft. ABSENT: distended, guarding, mass, organolmegaly, rebound, tenderness Extremities exam: PRESENT: full ROM. ABSENT: calf tenderness, clubbing, pedal edema Neurological exam: PRESENT: alert, awake, oriented to person, oriented to place, oriented to time, oriented to situation, CN II-XII grossly intact. ABSENT: motor sensory deficit Psychiatric exam: PRESENT: appropriate affect, normal mood. ABSENT: homicidal ideation, suicidal ideation Results Laboratory Results: 10/03/18 03:53 10/03/18 03:53 Impressions: Wrist X-Ray 10/02/18 09:57 IMPRESSION: NEGATIVE STUDY OF THE RIGHT WRIST. NO RADIOGRAPHIC EVIDENCE OF ACUTE INJURY. Upper Extremity CT 10/03/18 00:00 IMPRESSION: 1. No acute fracture or dislocation. 2. Mild widening of the scapholunate interval, which may suggest underlying scapholunate ligamentous injury. Assessment & Plan - Diagnosis (1) Septic arthritis Qualifiers: Septic arthritis location: wrist Septic arthritis organism: due to unsp ecified organism Laterality: right Qualified Code(s): M00.9 - Pyogenic arthritis, unspecified Is this a current diagnosis for this admission?: Yes Plan: 10/12/2018 patient was admitted with presumed diagnosis of septic arthritis. Patient was started on IV antibiotic therapy. Blood cultures are negative. No acute events in the last 24 hours. As I mentioned patient is on IV ceftriaxone. CT scan of the right wrist does not indicate any osteomyelitis. She is going to go home on and started Bactrim DS 1 tablet p.o. twice daily for 10 days. Patient was strongly advised to follow-up with primary care physician in 3-5 days. Patient agreed and verbalized his response. (2) Wrist pain, acute Qualifiers: Laterality: right Qualified Code(s): M25.531 - Pain in right wrist Is this a current diagnosis for this admission?: Yes Plan: Post injury No evidence of any fracture. Possibility of gout or pseudogout Will check Uric acid check ESR Patient says he is on Xarelto? so will avoid NSAID 10/04/2018-patient complaining of mild pain on right wrist movements. Other than that no complaints. CT scan to rule out any fracture. Patient was advised not to take nsaids (3) Atrial fibrillation Is this a current diagnosis for this admission?: Yes Plan: 10/04/2018 patient has history of chronic atrial fibrillation he is on Xarelto patient was advised to continue the home medication. (4) Psoriasis Is this a current diagnosis for this admission?: Yes Plan: 10/04/2018 patient has history of psoriasis he is not on any home medications. Patient was placed on Lidex. - Time Time Spent with patient: 15-24 minutes Medications reviewed and adjusted accordingly: Yes Anticipated discharge: Home
[2018-10-04 15:13] VITALS: BP 125/68
--- NOTE | 2018-10-04 15:13 | PDOC DISCHARGE SUMMARY ---
General - Admit/Disc Date/PCP Admission Date/Primary Care Provider: 10/02/18 13:54 DORETHA VERA MD Discharge Date: 10/04/18 - Discharge Diagnosis (1) Septic arthritis Is this a current diagnosis for this admission?: Yes Summary: 10/04/2018 patient was admitted with presumed diagnosis of septic arthritis. Patient was started on IV antibiotic therapy. Blood cultures are negative. No acute events in the last 24 hours. As I mentioned patient is on IV ceftriaxone. CT scan of the right wrist does not indicate any osteomyelitis. She is going to go home on and started Bactrim DS 1 tablet p.o. twice daily for 10 days. Patient was strongly advised to follow-up with primary care physician in 3-5 days. Patient agreed and verbalized his response. (2) Wrist pain, acute Is this a current diagnosis for this admission?: Yes Summary: Post injury No evidence of any fracture. Possibility of gout or pseudogout Will check Uric acid check ESR Patient says he is on Xarelto? so will avoid NSAID 10/04/2018-patient complaining of mild pain on right wrist movements. Other than that no complaints. CT scan to rule out any fracture. Patient was advised not to take nsaids (3) Atrial fibrillation Is this a current diagnosis for this admission?: Yes Summary: 10/04/2018 patient has history of chronic atrial fibrillation he is on Xarelto patient was advised to continue the home medication. (4) Psoriasis Is this a current diagnosis for this admission?: Yes Summary: patient has history of psoriasis he is not on any home medications. Patient was placed on Lidex. - Additional Information Resuscitation Status: Full Code Discharge Diet: As Tolerated, Cardiac Discharge Activity: Activity As Tolerated Prescriptions: Sulfamethoxazole/Trimethoprim [Bactrim Ds Tablet] 1 each PO BID #20 tablet Home Medications: Aspirin [Ecotrin 81 mg EC Tablet] 81 mg PO DAILY 10/02/18 Atorvastatin Calcium [Lipitor 20 mg Tablet] 20 mg PO QHS 10/02/18 Calcium Carb/D3/Magnesium/Zinc [You Mag Zinc-D Tablet] 1 tab PO DAILY 10/02/18 Citalopram Hydrobromide [Celexa 40 mg Tablet] 40 mg PO DAILY 10/02/18 Diazepam [Valium 5 mg Tablet] 5 mg PO QHS 10/02/18 Furosemide [Lasix 20 mg Tablet] 20 mg PO QAM 10/02/18 Metoprolol Succinate [Toprol Xl 25 mg Tab.sr] 25 mg PO DAILY 10/02/18 Multivitamin [Multiple Vitamins] 1 each PO DAILY 10/02/18 Potassium Chloride [Klor-Con 10 Meq Capsule ER] 10 meq PO DAILY 10/02/18 Ropinirole HCl [Requip] 1.5 mg PO QHS 10/02/18 Rivaroxaban [Xarelto 10 mg Tablet] 20 mg PO WSUPPER tablet 10/04/18 Sulfamethoxazole/Trimethoprim [Bactrim Ds Tablet] 1 each PO BID #20 tablet 10/04/18 History of Present Illness History of Present Illness: ANAHI DOWNING JR is a 82 year old male This gentleman presents to the emergency room with complaints of right wrist pain for the last 2 days.. Patient said he fell and landed on his right wrist and has had progressive pain since then the hand is described as red, as well as swelling and is unable to bend. X-ray done in the emergency room reveals no acute pathology. There is evidence of a fracture. Of note patient says he is on Xarelto for atrial fibrillation Physical Exam Vital Signs: Temp Pulse Resp BP Pulse Ox 97.5 F 65 16 117/57 L 97 10/04/18 11:46 10/04/18 11:46 10/04/18 11:46 10/04/18 11:46 10/04/18 11:46 Intake & Output 10/03/18 10/04/18 10/05/18 06:59 06:59 06:59 Intake Total 1210 50 Output Total 300 Balance -300 1210 50 Weight 82.1 kg 80.9 kg General appearance: PRESENT: no acute distress Head exam: PRESENT: atraumatic Eye exam: PRESENT: PERRLA Mouth exam: PRESENT: dry mucosa Neck exam: ABSENT: carotid bruit, JVD, lymphadenopathy, thyromegaly Respiratory exam: PRESENT: decreased breath sounds Cardiovascular exam: PRESENT: irregular rhythm, systolic murmur, tachycardia, other - pacemaker GI/Abdominal exam: PRESENT: normal bowel sounds, soft. ABSENT: distended, guard ing, mass, organolmegaly, rebound, tenderness Extremities exam: PRESENT: full ROM. ABSENT: calf tenderness, clubbing, pedal edema Neurological exam: PRESENT: alert, awake, oriented to person, oriented to place, oriented to time, oriented to situation, CN II-XII grossly intact. ABSENT: motor sensory deficit Results Laboratory Results: 10/03/18 03:53 10/03/18 03:53 Impressions: Wrist X-Ray 10/02/18 09:57 IMPRESSION: NEGATIVE STUDY OF THE RIGHT WRIST. NO RADIOGRAPHIC EVIDENCE OF ACUT E INJURY. Upper Extremity CT 10/03/18 00:00 IMPRESSION: 1. No acute fracture or dislocation. 2. Mild widening of the scapholunate interval, which may suggest underlying s capholunate ligamentous injury. Qualifiers - * PATIENT BEING DISCHARGED WITH ANY OF THE FOLLOWING DIAGNOSIS: No VTE patient discharged on overlapping Therapy?: Yes
[2018-10-04] MEDS ORDERED: ROPINIROLE HCL 1 MG TABLET PO SCH (22:00)
== END 2018-10-04 15:54 | disposition home or self-care (01) ==
LOC: ER 09:25 → EH 13:54 → OBSVTOIN 14:33 → INTOOBSV 14:33 → 5 17:27
PROVIDERS: ADMIT Internal Medicine; ATTEND Internal Medicine
DX: M00.831 Arthritis due to other bacteria, right wrist (principal); M25.531 Pain in right wrist; I48.2 Chronic atrial fibrillation; L40.9 Psoriasis, unspecified; R00.0 Tachycardia, unspecified; R01.1 Cardiac murmur, unspecified; W19.XXXA Unspecified fall, initial encounter; Y93.89 Activity, other specified; Y92.009 Unspecified place in unspecified non-institutional (private) residence as the place of occurrence of the external cause; I25.10 Atherosclerotic heart disease of native coronary artery without angina pectoris; I11.0 Hypertensive heart disease with heart failure; I50.22 Chronic systolic (congestive) heart failure; E11.9 Type 2 diabetes mellitus without complications; L29.9 Pruritus, unspecified; R21 Rash and other nonspecific skin eruption; Z87.891 Personal history of nicotine dependence; Z85.46 Personal history of malignant neoplasm of prostate; Z79.02 Long term (current) use of antithrombotics/antiplatelets; Z79.82 Long term (current) use of aspirin; Z95.0 Presence of cardiac pacemaker; Z95.1 Presence of aortocoronary bypass graft; Z79.899 Other long term (current) drug therapy; Z79.84 Long term (current) use of oral hypoglycemic drugs
CPT/HCPCS: 36415 ×2; 87040; 82962 ×3; 84550; 85025 ×2; 85652; 86140; 80048; 80053; 73110; 73200; G0378 ×2; L3908; A9270 ×27; J1650 ×2; J0696 ×3; J3370; J3490; J7512

== ENCOUNTER 2019-09-20 13:50 | Inpatient (IN) | payer MEDICARE, BC ==
--- NOTE | 2019-09-20 14:00 | ER Document Report ---
ED Medical Screen (RME) - General Chief Complaint: Breathing Difficulty Stated Complaint: WEAKNESS/DIFFICULTY BREATHING/DIZZY Time Seen by Provider: 09/20/19 13:53 Primary Care Provider: DORETHA WHITAKER MD [Primary Care Provider] - Follow up as needed Mode of Arrival: Wheelchair Information source: Patient, Relative Notes: 83-year-old male with history of cardiac disease CHF presents emergency department with worsening CHF. Reports his doctor, Dr. Whitaker sent him over here for treatment. He reports for the past 3 weeks he has had increased shortness of breath chest pain fatigue. He reports Dr. Whitaker has increased his Lasix in the past 3 weeks. Reports right leg is swelling. Reports that when he lays down he is to wear 2 L nasal cannula even if he takes a nap in the afternoon. Patient sounds winded when talking. Respiratory rate even unlabored I have greeted and performed a rapid initial assessment of this patient. A comprehensive ED assessment and evaluation of the patient, analysis of test results and completion of the medical decision making process will be conducted by additional ED providers. TRAVEL OUTSIDE OF THE [place] IN LAST 30 DAYS: No - Related Data Allergies/Adverse Reactions: oxycodone [From OxyContin] Allergy (Verified 09/20/19 13:52) Past Medical History - Past Medical History Cardiac Medical History: Reports: Hx Atrial Fibrillation, Hx Congestive Heart Failure, Hx Coronary Artery Disease, Hx Hypertension Endocrine Medical History: Reports: Hx Diabetes Mellitus Type 2 Renal/ Medical History: Denies: Hx Peritoneal Dialysis Malignancy Medical History: Reports Hx Prostate Cancer Psychiatric Medical History: Reports: Hx Anxiety, Hx Depression Past Surgical History: Reports: Hx Cardiac Catheterization, Hx Cardiac Surgery, Hx Coronary Artery Bypass Graft, Hx Herniorrhaphy, Hx Pacemaker Physical Exam - Vital signs Vitals: Temp Pulse Resp BP Pulse Ox 97.2 F 69 24 H 132/47 H 100 09/20/19 13:55 09/20/19 13:55 09/20/19 13:55 09/20/19 13:55 09/20/19 13:55 Course - Vital Signs Vital signs: Temp Pulse Resp BP Pulse Ox 97.2 F 69 24 H 132/47 H 100 09/20/19 13:55 09/20/19 13:55 09/20/19 13:55 09/20/19 13:55 09/20/19 13:55 Doctor's Discharge - Discharge Referrals: DORETHA WHITAKER MD [Primary Care Provider] - Follow up as needed
--- NOTE | 2019-09-20 14:37 | RADIOLOGY REPORT (SQ) ---
EXAM DESCRIPTION: CHEST SINGLE VIEW COMPLETED DATE/TIME: 09/20/2019 2:29 pm REASON FOR STUDY: sob COMPARISON: 07/06/2015. EXAM PARAMETERS: NUMBER OF VIEWS: One view. TECHNIQUE: Single frontal radiographic view of the chest acquired. RADIATION DOSE: NA LIMITATIONS: None. FINDINGS: LUNGS AND PLEURA: No opacities, masses or pneumothorax. No pleural effusion. MEDIASTINUM AND HILAR STRUCTURES: No masses. Contour normal. HEART AND VASCULAR STRUCTURES: Heart normal in size. Normal vasculature. BONES: No acute findings. HARDWARE: Pacemaker. Sternotomy wires. OTHER: No other significant finding. IMPRESSION: NO ACUTE RADIOGRAPHIC FINDING IN THE CHEST. TECHNICAL DOCUMENTATION: JOB ID: [id number] [employer]- All Rights Reserved Reading location - IP/workstation name: [email or web address]
[2019-09-20 14:43] LABS: ABSOLUTE BASOPHILS # (AUTO) 0.1 10^3/uL (0.0-0.2); ABSOLUTE EOSINOPHILS # (AUTO) 0.2 10^3/uL (0.0-0.6); ABSOLUTE LYMPHOCYTES (AUTO) 1.4 10^3/uL (0.5-4.7); ABSOLUTE MONOCYTES (AUTO) 0.7 10^3/uL (0.1-1.4); ABSOLUTE NEUT (AUTO) 7.2 10^3/uL (1.7-8.2); BASOPHILS % (AUTO) 0.9 % (0-2); EOSINOPHILS % (AUTO) 2.1 % (0-6); HEMATOCRIT 23.5 % (37.9-51.0); LYMPHOCYTES % (AUTO) 14.4 % (13-45); MEAN CORPUSCULAR HEMOGLOBIN 30.8 pg (27.0-33.4); MEAN CORPUSCULAR HGB CONC 33.8 g/dL (32.0-36.0); MEAN CORPUSCULAR VOLUME 91 fl (80-97); MONOCYTES % (AUTO) 7.6 % (3-13); PLATELET COUNT 239 10^3/uL (150-450); RED BLOOD COUNT 2.57 10^6/uL (4.35-5.55); RED CELL DISTRIBUTION WIDTH 15.2 % (11.5-14.0); TOTAL CELLS COUNTED % (AUTO) 100 %; WHITE BLOOD COUNT 9.7 10^3/uL (4.0-10.5)
[2019-09-20 14:45] LABS: HEMOGLOBIN 7.9 g/dL (13.5-17.0)
[2019-09-20 14:55] LABS: ALBUMIN 4.1 g/dL (3.5-5.0); ALKALINE PHOSPHATASE 45 U/L (38-126); ANION GAP 15 (5-19); ASPARTATE AMINO TRANSFERASE 23 U/L (17-59); BILIRUBIN,DIRECT 0.2 mg/dL (0.0-0.4); BILIRUBIN,TOTAL 0.4 mg/dL (0.2-1.3); BLOOD UREA NITROGEN 57 mg/dL (7-20); CALCIUM 9.9 mg/dL (8.4-10.2); CARBON DIOXIDE 25 mmol/L (22-30); CHLORIDE 99 mmol/L (98-107); GLUCOSE 123 mg/dL (75-110); TOTAL PROTEIN 7.8 g/dL (6.3-8.2)
[2019-09-20 15:07] LABS: TROPONIN I 0.018 ng/mL
--- NOTE | 2019-09-20 15:51 | ER Document Report ---
ED General - General Chief Complaint: Breathing Difficulty Stated Complaint: WEAKNESS/DIFFICULTY BREATHING/DIZZY Time Seen by Provider: 09/20/19 13:53 Mode of Arrival: Wheelchair TRAVEL OUTSIDE OF THE [place] IN LAST 30 DAYS: No - HPI Notes: 83-year-old male with a history of CHF, CAD, type 2 diabetic, Atrial fibrillation, pacemaker, anticoagulated on Xarelto with 3 stents presents to the emergency room for complaints of trouble breathing, substernal chest pain, swelling in his left lower leg that has become progressively worse over the last 3 days. Patient is managed by Dr. Whitaker, his apartment rental clerk who advised him to double up on his Lasix to 40 mg in the morning and 60 mg at night. Patient has become more exhausted and fatigued in the last couple of days. is at bedside. Patient did have a stress test done in November 2017. Patient does take Xarelto daily. Does wear oxygen at night as needed for sleep apnea. His his last colonoscopy was 10 years ago. Denies any black tarry stool, denies any vomiting, denies any abdominal pain. Patient states he does have issues with constipation. Denies fevers, chills, chest pain, (but reports chest tightness),palpitations, nausea, vomiting, diarrhea, abdominal pain, hematuria,blurred vision, double vision, loss of vision, speech changes, LH, dizziness, syncope, headaches, wheezing, ST, URI, neck pain, weakness, bowel or bladder dysfunction, saddle anesthesia, numbness or tingling in bilateral upper or lower extremities equally, muscle paralysis, weakness in bilateral upper or lower extremities equally or rash. - Related Data Allergies/Adverse Reactions: oxycodone [From OxyContin] Allergy (Verified 09/20/19 13:52) Home Medications: see attached list/[place] Past Medical History - General Information source: Patient, Relative - Social History Smoking Status: Former Smoker Chew tobacco use (# tins/day): No Frequency of alcohol use: None Drug Abuse: None Family History: Reviewed & Not Pertinent Patient has suicidal ideation: No Patient has homicidal ideation: No - Past Medical History Cardiac Medical History: Reports: Hx Atrial Fibrillation, Hx Congestive Heart Failure, Hx Coronary Artery Disease, Hx Hypertension Endocrine Medical History: Reports: Hx Diabetes Mellitus Type 2 Renal/ Medical History: Denies: Hx Peritoneal Dialysis Malignancy Medical History: Reports Hx Prostate Cancer Psychiatric Medical History: Reports: Hx Anxiety, Hx Depression Past Surgical History: Reports: Hx Cardiac Catheterization, Hx Cardiac Surgery, Hx Coronary Artery Bypass Graft, Hx Herniorrhaphy, Hx Pacemaker Review of Systems - Review of Systems Constitutional: See HPI EENT: No symptoms reported Cardiovascular: See HPI Respiratory: See HPI Gastrointestinal: No symptoms reported Genitourinary: No symptoms reported Male Genitourinary: No symptoms reported Musculoskeletal: No symptoms reported Skin: No symptoms reported Hematologic/Lymphatic: No symptoms reported Neurological/Psychological: No symptoms reported Physical Exam - Vital signs Vitals: Pulse Ox 100 09/20/19 13:51 - Notes Notes: PHYSICAL EXAMINATION:reviewed vital signs by RN GENERAL: Chronically ill, malnourished and in mild distress HEAD: Atraumatic, normocephalic. EYES: Pupils equal round and reactive to light, extraocular movements intact, sclera anicteric, conjunctiva are normal. ENT: Nares patent, oropharynx clear without exudates. Moist mucous membranes. NECK: Normal range of motion, supple without lymphadenopathy LUNGS: Diminished breath sounds in bilateral upper lobes. breath sounds clear to auscultation bilaterally and equal. No wheezes rales or rhonchi. HEART: Regular rate and rhythm without murmurs ABDOMEN: Soft, nontender, nondistended abdomen. No guarding, no rebound. No masses appreciated. Musculoskeletal: Normal range of motion, no pitting or edema. No cyanosis. NEUROLOGICAL: Cranial nerves grossly intact. Normal speech, normal gait. Normal sensory, motor exams PSYCH: Normal mood, normal affect. SKIN: Warm, Dry, normal turgor, no rashes or lesions noted. Course - Re-evaluation Re-evalutation: 09/20/19 16:14 Afebrile vitals stable. His notes reviewed. Patient's hemoglobin is 7.9 hematocrit is 23.1. Creatinine is 1.59, BUN 57. BNP 1090. Patient has not had any black tarry stool, no hemoptysis. Patient is taking Xarelto for his stents and A. fib. Chest x-ray negative for venous congestion, pneumonia, pneumothorax. EKG negative for acute STEMI, no ST segment changes. CMP negative for hepatic dysfunction, no electrolyte disturbances. Urinalysis pending. Consulted Dr. Tejas Hodge MD at 1615 for admission for CHF, tachypnea, anemia and possible blood transfusion with hemoglobin of 7.9 hematocrit of 23.1. Hospitalist will decide if patient receives blood transf usion due to concern of worsening CHF status. Medical service agreed to admit patient under their service. patient agreeable plan of care to be admitted to hospitalist service on telemetry for further management of CHF - Vital Signs Vital signs: Temp Pulse Resp BP Pulse Ox 97.2 F 69 24 H 132/47 H 100 09/20/19 13:55 09/20/19 13:55 09/20/19 13:55 09/20/19 13:55 09/20/19 13:55 - Laboratory Result Diagrams: 09/20/19 14:05 09/20/19 14:05 Laboratory results interpreted by me: 09/20/19 09/20/19 09/20/19 14:05 14:05 14:05 RBC 2.57 L Hgb 7.9 L Hct 23.5 L RDW 15.2 H PT APTT BUN 57 H Creatinine 1.59 H Est GFR ( Amer) 50 L Est GFR (MDRD) Non-Af 42 L Glucose 123 H NT-Pro-B Natriuret Pep 1090 H 09/20/19 14:05 RBC Hgb Hct RDW PT 23.3 H APTT 39.5 H BUN Creatinine Est GFR ( Amer) Est GFR (MDRD) Non-Af Glucose NT-Pro-B Natriuret Pep Discharge - Discharge Clinical Impression: CHF (congestive heart failure), Atrial fibrillation Anemia Qualifiers: Anemia type: unspecified type Qualified Code(s): D64.9 - Anemia, unspecified Disposition: ADMITTED INPATIENT Admitting Provider: Dr. Tejas Hodge Unit Admitted: Telemetry
[2019-09-20] MEDS ORDERED: NORMAL SALINE 250 ML IV PRN (15:54)
[2019-09-20 16:11] LABS: INTERNATIONAL RATION (INR) 2.03; PARTIAL THROMBOPLASTIN TIME 39.5 SEC (23.5-35.8); PROTHROMBIN TIME 23.3 SEC (11.4-15.4)
[2019-09-20 17:04] LABS: VENOUS BLOOD BASE EXCESS 1.3 mmol/L; VENOUS BLOOD HCO3 25.3 mmol/L (20-32); VENOUS BLOOD PCO2 36.6 mmHg (35-63); VENOUS BLOOD PH 7.46 (7.30-7.42)
--- NOTE | 2019-09-20 17:29 | PDOC CONSULTATION ---
Consultation Consult Date: 09/20/19 Provider Consulted: JUNAID CAMPOS Consult reason:: anemia History of Present Illness Admission Date/PCP: 09/20/19 16:28 DORETHA VERA MD History of Present Illness: ANAHI DOWNING JR is a 83 year old male I was contacted by the ER physician who is planning to call the hospitalist physician for admission patient is on anticoagulation and noted to have worsening anemia apparently had a colonoscopy about 10 years ago takes Xarelto for A fib patient has some shortness of breath patient denies seeing any black stools patient is being admitted he should have his anticoagulation stopped for now after about 48hours , he will need a GI work up to include both and EGD and colonoscopy to rule out for possible GI bleeding Past Medical History Cardiac Medical History: Reports: Atrial Fibrillation, Congestive Heart Failure, Coronary Artery Disease, Hypertension Endocrine Medical History: Reports: Diabetes Mellitus Type 2 Psychiatric Medical History: Reports: Depression Past Surgical History Past Surgical History: Reports: Cardiac Catheterization, Coronary Artery Bypass Graft, Herniorrhaphy, Pacemaker Social History Smoking Status: Former Smoker Electronic Cigarette use?: No Frequency of Alcohol Use: None Hx Recreational Drug Use: No Drugs: None Hx Prescription Drug Abuse: No Family History Family History: Reviewed & Not Pertinent Parental Family History Reviewed: Yes Children Family History Reviewed: Unknown Sibling(s) Family History Reviewed.: Unknown Medication/Allergy Allergies/Adverse Reactions: oxycodone [From OxyContin] Allergy (Verified 09/20/19 13:52) Review of Systems Constitutional: PRESENT: weakness. ABSENT: fever(s), headache(s), night sweats Eyes: ABSENT: visual disturbances Ears: ABSENT: hearing changes Nose, Mouth, and Throat: ABSENT: mouth pain, sore throat Cardiovascular: ABSENT: edema, palpitations Respiratory: PRESENT: dyspnea. ABSENT: hemoptysis Gastrointestinal: ABSENT: diarrhea, hematemesis, hematochezia Genitourinary: ABSENT: dysuria, hematuria Neurological: ABSENT: syncope, tingling, tremor(s), vertigo Endocrine: ABSENT: polydipsia, polyphagia, polyuria Hematologic/Lymphatic: ABSENT: easy bruising Physical Exam Vital Signs: Temp Pulse Resp BP Pulse Ox 97.2 F 69 24 H 132/47 H 100 09/20/19 13:55 09/20/19 13:55 09/20/19 13:55 09/20/19 13:55 09/20/19 13:55 Intake & Output 09/19/19 09/20/19 09/21/19 06:59 06:59 06:59 Weight 82.554 kg General appearance: PRESENT: no acute distress Head exam: PRESENT: atraumatic, normocephalic Eye exam: PRESENT: EOMI, PERRLA. ABSENT: scleral icterus Mouth exam: PRESENT: moist, neck supple Neck exam: ABSENT: meningismus, tenderness, thyromegaly Respiratory exam: PRESENT: symmetrical. ABSENT: tachypnea, wheezes Cardiovascular exam: PRESENT: irregular rhythm GI/Abdominal exam: ABSENT: ascites, Hayden's sign, rebound, rigid, soft Extremities exam: ABSENT: joint swelling, tenderness Musculoskeletal exam: PRESENT: full ROM Neurological exam: PRESENT: oriented to person, oriented to situation, reflexes normal, CN II-XII grossly intact Psychiatric exam: ABSENT: flat affect Skin exam: PRESENT: normal color. ABSENT: mottled, pallor, petechiae Results Laboratory Results: 09/20/19 14:05 09/20/19 14:05 09/20/19 09/20/19 09/20/19 14:05 14:05 16:30 WBC 9.7 RBC 2.57 L Hgb 7.9 L Hct 23.5 L MCV 91 MCH 30.8 MCHC 33.8 RDW 15.2 H Plt Count 239 Seg Neutrophils % 75.0 VBG pH 7.46 H VBG pCO2 36.6 VBG HCO3 25.3 VBG Base Excess 1.3 Sodium 138.5 Potassium 5.0 Chloride 99 Carbon Dioxide 25 Anion Gap 15 BUN 57 H Creatinine 1.59 H Est GFR ( Amer) 50 L Glucose 123 H Calcium 9.9 Total Bilirubin 0.4 AST 23 Alkaline Phosphatase 45 Total Protein 7.8 Albumin 4.1 09/20/19 14:05 Troponin I 0.018 NT-Pro-B Natriuret Pep 1090 H Impressions: Chest X-Ray 09/20/19 13:57 IMPRESSION: NO ACUTE RADIOGRAPHIC FINDING IN THE CHEST. Assessment & Plan - Diagnosis (1) Anemia Qualifiers: Anemia type: unspecified type Qualified Code(s): D64.9 - Anemia, unspecified Plan: could be due to GI bleeding but does not appear to have an over manifestation had colonoscopy 10 years ago and likely normal since there has been a 10 year interval patient has had gradually decreasing Hgb would recommend stopping his Xarelto but would get cardiology consult first he would likely need an EGD and colonoscopy will schedule if inpatient is patient is willing Risks, benefits and alternatives to be discussed however will have to stop his Xarelto for at least 48hours prior to procedure further recommendations to follow transfuse if necessary - Time Time Spent: 50 to 70 Minutes
[2019-09-20 18:24] LABS: APPEARANCE,URINE CLEAR; BILIRUBIN,URINE NEGATIVE (NEGATIVE); COLOR,URINE YELLOW; GLUCOSE, URINE NEGATIVE (NEGATIVE); KETONES,URINE NEGATIVE (NEGATIVE); LEUKOCYTE ESTERASE,URINE NEGATIVE (NEGATIVE); NITRITE,URINE NEGATIVE (NEGATIVE); PROTEIN,URINE NEGATIVE (NEGATIVE); URINE SPECIFIC GRAVITY 1.012; UROBILINOGEN,URINE NEGATIVE mg/dL (<2.0)
--- NOTE | 2019-09-20 19:30 | PDOC H&P ---
History of Present Illness Admission Date/PCP: 09/20/19 16:28 DORETHA VERA MD Patient complains of: Shortness of breath, dyspnea on exertion, wheezing, intermittent chest pain with productive cough. History of Present Illness: ANAHI DOWNING JR is a 83 year old male who presents to the ER with 2 weeks of progressive shortness of breath/dyspnea on exertion/generalized fatigue and weakness/wheezing/cough productive of thick white mucus. Patient notes this is very similar to previous COPD exacerbations. 2 weeks ago, patient saw his hris coordinator Dr. Vera who increased his oral Lasix dose for the patient's complaint of a cough which was unresolving. He did not notice much if any improvement and then developed progressive shortness of breath from there. Patient notes previously smoking 3 to 4 packs of cigarettes per day for many years but has quit several years ago. He uses multiple inhalers and nebulizer at home. Patient's notes he has stopped using his nebulizer about 1 to 2 months ago and seems to became worse after stopping this medication. He also has a very complicated cardiac history with significant heart failure, CAD s tatus post multiple stents and a CABG in 2003. BNP notably elevated up to 1090, troponin lower than previous values. Also of note, patient's hemoglobin is dropped to 7.9 from 10.8 which was drawn approximately 1 year ago. Patient and family adamantly deny any history of GI bleed including currently. Patient does take Xarelto and denies missing any doses. GI consulted by ED. Admitted to [facility] for further work-up Past Medical History Cardiac Medical History: Reports: Atrial Fibrillation, Congestive Heart Failure, Coronary Artery Disease, Hypertension Pulmonary Medical History: Reports: Chronic Obstructive Pulmonary Disease (COPD), Sleep Apnea Endocrine Medical History: Reports: Diabetes Mellitus Type 2 Malignancy Medical History: Reports: Other - prostate cancer, s/p radiation Skin Medical History: Reports: Psoriasis Psychiatric Medical History: Reports: Alcohol Dependency, Depression, General Anxiety Disorder Past Surgical History Past Surgical History: Reports: Cardiac Catheterization, Coronary Artery Bypass Graft, Herniorrhaphy, Pacemaker Social History Lives with: Family, Spouse/Significant other Smoking Status: Former Smoker Electronic Cigarette use?: No Frequency of Alcohol Use: None Hx Recreational Drug Use: No Drugs: None Hx Prescription Drug Abuse: No - Advance Directive Resuscitation Status: Do Not Resuscitate Surrogate healthcare decision maker:: chan [phone] Family History Family History: Reviewed & Not Pertinent, CAD Parental Family History Reviewed: Yes Children Family History Reviewed: Yes Sibling(s) Family History Reviewed.: Yes Medication/Allergy Home Medications: Atorvastatin Calcium [Lipitor 20 mg Tablet] 20 mg PO QHS 09/20/19 Citalopram Hydrobromide [Celexa 20 mg Tablet] 20 mg PO DAILY 09/20/19 Diazepam [Valium 5 mg Tablet] 5 mg PO QHS 09/20/19 Ferrous Sulfate [Feosol 325 mg Tablet] 325 mg PO DAILY 09/20/19 Furosemide [Lasix 20 mg Tablet] 60 mg PO DAILY@1600 09/20/19 Lisinopril [Prinivil 10 mg Tablet] 10 mg PO DAILY 09/20/19 Metformin HCl [Glucophage 500 mg Tablet] 500 mg PO BID 09/20/19 Metoprolol Succinate [Toprol Xl 25 mg Tab.sr] 12.5 mg PO DAILY 09/20/19 Ropinirole HCl [Requip] 1.5 mg PO QHS 09/20/19 Allergies/Adverse Reactions: oxycodone [From OxyContin] Allergy (Verified 09/20/19 13:52) Review of Systems All systems: reviewed and no additional remarkable complaints except as stated Constitutional: PRESENT: as per HPI Eyes: PRESENT: as per HPI Ears: PRESENT: as per HPI Nose, Mouth, and Throat: PRESENT: as per HPI Cardiovascular: PRESENT: as per HPI Respiratory: PRESENT: as per HPI Gastrointestinal: PRESENT: as per HPI, constipation - chronic Genitourinary: PRESENT: as per HPI Musculoskeletal: PRESENT: as per HPI Integumentary: PRESENT: as per HPI, rash Neurological: PRESENT: as per HPI Psychiatric: PRESENT: as per HPI, anxiety, depression Endocrine: PRESENT: as per HPI Hematologic/Lymphatic: PRESENT: as per HPI Allergic/Immunologic: PRESENT: as per HPI Physical Exam Vital Signs: Temp Pulse Resp BP Pulse Ox 97.2 F 69 24 H 132/47 H 100 09/20/19 13:55 09/20/19 13:55 09/20/19 13:55 09/20/19 13:55 09/20/19 13:55 Intake & Output 09/19/19 09/20/19 09/21/19 06:59 06:59 06:59 Weight 82.554 kg General appearance: PRESENT: cooperative, mild distress Head exam: PRESENT: atraumatic, normocephalic Eye exam: PRESENT: conjunctiva pink Mouth exam: PRESENT: moist Respiratory exam: PRESENT: wheezes. ABSENT: accessory muscle use, crackles, rhonchi Cardiovascular exam: PRESENT: RRR GI/Abdominal exam: PRESENT: normal bowel sounds, soft. ABSENT: tenderness Rectal exam: PRESENT: deferred Extremities exam: PRESENT: +1 edema Musculoskeletal exam: PRESENT: ambulatory Neurological exam: PRESENT: alert, awake, oriented to person, oriented to place, oriented to time, oriented to situation Psychiatric exam: PRESENT: anxious. ABSENT: homicidal ideation, suicidal ideation Skin exam: PRESENT: rash Results Laboratory Results: 09/20/19 14:05 09/20/19 14:05 09/20/19 09/20/19 09/20/19 14:05 14:05 16:30 WBC 9.7 RBC 2.57 L Hgb 7.9 L Hct 23.5 L MCV 91 MCH 30.8 MCHC 33.8 RDW 15.2 H Plt Count 239 Seg Neutrophils % 75.0 VBG pH 7.46 H VBG pCO2 36.6 VBG HCO3 25.3 VBG Base Excess 1.3 Sodium 138.5 Potassium 5.0 Chloride 99 Carbon Dioxide 25 Anion Gap 15 BUN 57 H Creatinine 1.59 H Est GFR ( Amer) 50 L Glucose 123 H Calcium 9.9 Total Bilirubin 0.4 AST 23 Alkaline Phosphatase 45 Total Protein 7.8 Albumin 4.1 Urine Color Urine Appearance Urine pH Ur Specific [place] Urine Protein Urine Glucose (UA) Urine Ketones Urine Blood Urine Nitrite Ur Leukocyte Esterase Urine WBC (Auto) Urine RBC (Auto) Blood Type Antibody Screen 09/20/19 09/20/19 16:30 17:47 WBC RBC Hgb Hct MCV MCH MCHC RDW Plt Count Seg Neutrophils % VBG pH VBG pCO2 VBG HCO3 VBG Base Excess Sodium Potassium Chloride Carbon Dioxide Anion Gap BUN Creatinine Est GFR ( Amer) Glucose Calcium Total Bilirubin AST Alkaline Phosphatase Total Protein Albumin Urine Color YELLOW Urine Appearance CLEAR Urine pH 6.0 Ur Specific [place] 1.012 Urine Protein NEGATIVE Urine Glucose (UA) NEGATIVE Urine Ketones NEGATIVE Urine Blood NEGATIVE Urine Nitrite NEGATIVE Ur Leukocyte Esterase NEGATIVE Urine WBC (Auto) 0 Urine RBC (Auto) 0 Blood Type O POSITIVE Antibody Screen NEGATIVE 09/20/19 14:05 Troponin I 0.018 NT-Pro-B Natriuret Pep 1090 H Impressions: Chest X-Ray 09/20/19 13:57 IMPRESSION: NO ACUTE RADIOGRAPHIC FINDING IN THE CHEST. Assessment and Plan - Diagnosis (1) Acute on chronic systolic (congestive) heart failure Is this a current diagnosis for this admission?: Yes Plan: Admission: -Suspect this is the cause of his respiratory failure in addition to COPD exacerbation -Cardiology consulted -IV Lasix -Consider repeat echocardiogram BNP and troponin elevated however troponin is notably lower than previous values (2) COPD exacerbation Is this a current diagnosis for this admission?: Yes Plan: Admission: -Suspect this may have exacerbated patient's CHF as he is wheezing on admission and notably short of breath, coughing thick white sputum DuoNeb scheduled Continue home inhalers Pulmonary hygiene Supplement oxygen to goal 89 to 94% Schedule prednisone (3) Normochromic anemia Is this a current diagnosis for this admission?: Yes Plan: Possible GI bleed, however patient denies any GI bleeding currently or previously. GI was consulted by ED and they recommended holding Xarelto which we have done. He also recommended cardiology consult which has been placed. Plan for EGD and colonoscopy in 48 hours per GI note. This is assuming patient's respiratory failure improves to the point he can undergo this procedure safely. Trend CBC every 6 hours x 2. Transfuse for hemoglobin less than 7 or if patient experiences an acute drop with symptoms. Hemoccult is pending, ordered by ED but not done yet. We will need to be conservative with transfusions as having this much blood volume to this patient with severe CHF could send him into severe decompensated CHF possibly necessitating BiPAP or ICU transfer. If he is given a transfusion, this should be followed with 20 to 40 mg of IV Lasix. (4) Atrial fibrillation Qualifiers: Atrial fibrillation type: permanent Qualified Code(s): I48.21 - Permanent atrial fibrillation Is this a current diagnosis for this admission?: Yes Plan: Holding Xarelto for possible GI bleed per GI recommendation. Timing restart per cardiology. Pacemaker already in place. Functioning properly per patient. (5) CHF (congestive heart failure) Qualifiers: Heart failure type: systolic Heart failure chronicity: acute on chronic Qualified Code(s): I50.23 - Acute on chronic systolic (congestive) heart failure Is this a current diagnosis for this admission?: Yes (6) Psoriasis Is this a current diagnosis for this admission?: Yes Plan: Patient does not like using any creams is noncompliant with these that have been prescribed in the past due to burning sensation. He will try Vaseline as this does not burn, he just does not like it getting on his clothes. - Time Time Spent with patient: 35 or more minutes Medications reviewed and adjusted accordingly: Yes Anticipated discharge: Home Within: within 72 hours - Inpatient Certification I certify that my determination is in accordance with my understanding of Medicare's requirements for reasonable and necessary INPATIENT services [42 CFR 412.3e].: Yes Medical Necessity: Significant Comorbidiites Make Outpatient Treatment Too Risky, Need Close Monitoring Due to Risk of Patient Decompensation
[2019-09-20 21:08] LABS: HEMATOCRIT 21.2 % (37.9-51.0); MEAN CORPUSCULAR HEMOGLOBIN 30.7 pg (27.0-33.4); MEAN CORPUSCULAR HGB CONC 33.9 g/dL (32.0-36.0); MEAN CORPUSCULAR VOLUME 91 fl (80-97); PLATELET COUNT 214 10^3/uL (150-450); RED BLOOD COUNT 2.34 10^6/uL (4.35-5.55); RED CELL DISTRIBUTION WIDTH 15.4 % (11.5-14.0); WHITE BLOOD COUNT 10.3 10^3/uL (4.0-10.5)
[2019-09-20 21:13] LABS: HEMOGLOBIN 7.2 g/dL (13.5-17.0)
[2019-09-20] MEDS ORDERED: (PENDING PHARMACY ID) (Ropinirole Hcl [Requip] 1.5 MG) PO SCH (22:00)
[2019-09-20] MEDS: IPRATROPIUM/ALBUTEROL 0.5-2.5 MG/3 ML AMPUL NEB SCH (22:06)
[2019-09-20] MEDS: PREDNISONE 20 MG TABLET PO SCH (22:07)
[2019-09-20] MEDS: ATORVASTATIN CALCIUM 20 MG TABLET PO SCH (22:08)
[2019-09-20] MEDS: DIAZEPAM 5 MG TABLET PO SCH (22:08)
[2019-09-20] MEDS: FUROSEMIDE INJ/PF 40 MG/4 ML SDV IV SCH (22:09)
[2019-09-20] MEDS: ROPINIROLE HCL 1 MG TABLET PO SCH (22:10)
--- NOTE | 2019-09-20 22:42 | EKG REPORT ---
SEVERITY:- ABNORMAL ECG - ATRIAL FIBRILLATION, V-RATE 62-79 RBBB AND LAFB : Confirmed by: Jian Doll 20-Sep-2019 22:41:37
[2019-09-21] MEDS: IPRATROPIUM/ALBUTEROL 0.5-2.5 MG/3 ML AMPUL NEB SCH ×4 (01:30→21:02)
[2019-09-21 08:08] LABS: ABSOLUTE LYMPHOCYTES (AUTO) 0.6 10^3/uL (0.5-4.7); ABSOLUTE MONOCYTES (AUTO) 0.2 10^3/uL (0.1-1.4); ABSOLUTE NEUT (AUTO) 10.7 10^3/uL (1.7-8.2); BASOPHILS % (AUTO) 0.3 % (0-2); EOSINOPHILS % (AUTO) 0.1 % (0-6); LYMPHOCYTES % (AUTO) 5.5 % (13-45); MEAN CORPUSCULAR HEMOGLOBIN 30.6 pg (27.0-33.4); MEAN CORPUSCULAR HGB CONC 33.4 g/dL (32.0-36.0); MEAN CORPUSCULAR VOLUME 92 fl (80-97); PLATELET COUNT 213 10^3/uL (150-450); RED BLOOD COUNT 2.29 10^6/uL (4.35-5.55); RED CELL DISTRIBUTION WIDTH 16.1 % (11.5-14.0); SEGMENTED NEUTROPHILS % (AUTO) 92.1 % (42-78); TOTAL CELLS COUNTED % (AUTO) 100 %; WHITE BLOOD COUNT 11.6 10^3/uL (4.0-10.5)
[2019-09-21 08:23] LABS: ANION GAP 13 (5-19); BLOOD UREA NITROGEN 57 mg/dL (7-20); CALCIUM 9.6 mg/dL (8.4-10.2); CARBON DIOXIDE 25 mmol/L (22-30); CHLORIDE 98 mmol/L (98-107); GLUCOSE 188 mg/dL (75-110)
[2019-09-21 08:32] LABS: POTASSIUM 4.9 mmol/L (3.6-5.0)
[2019-09-21 08:35] LABS: NT PRO BNP 942 pg/mL (<450)
[2019-09-21 08:40] LABS: TROPONIN I < 0.012 ng/mL
[2019-09-21] MEDS ORDERED: FUROSEMIDE INJ/PF 20 MG/2 ML SDV IV ONE (09:38)
[2019-09-21] MEDS ORDERED: NORMAL SALINE 250 ML IV PRN ×2 (09:38)
[2019-09-21] MEDS ORDERED: LISINOPRIL 10 MG TABLET PO SCH (10:00)
[2019-09-21 10:16] LABS: ABSOLUTE RETICS # 0.133 10^6/uL (0.028-0.122); RETICULOCYTE COUNT (AUTO) 5.79 % (0.66-2.85)
[2019-09-21 10:36] LABS: IRON(TIBC) 39.5 ug/dL (49-181)
[2019-09-21] MEDS: FERROUS SULFATE 325 MG TABLET PO SCH (10:39)
[2019-09-21] MEDS: FUROSEMIDE INJ/PF 40 MG/4 ML SDV IV SCH ×2 (10:39→23:09)
[2019-09-21] MEDS: PREDNISONE 20 MG TABLET PO SCH (10:39)
[2019-09-21] MEDS: CITALOPRAM HYDROBROMIDE 20 MG TABLET PO SCH (10:39)
[2019-09-21] MEDS: METOPROLOL SUCCINATE 25 MG TAB.SR.24H PO SCH (10:39)
[2019-09-21 11:48] LABS: FOLATE > 20.00 ng/mL (>2.76)
--- NOTE | 2019-09-21 13:28 | PDOC CONSULTATION ---
Consultation Consult Date: 09/21/19 Provider Consulted: ELISEO PAYNE Consult reason:: Atrial fibrillation, GI bleed History of Present Illness Admission Date/PCP: 09/20/19 16:28 DORETHA VERA MD History of Present Illness: ANAHI DOWNING JR is a 83 year old male With the following active problems 1. Coronary artery disease 2. Coronary artery bypass graft 3. Left chest wall permanent pacemaker 4. Atrial fibrillation-permanent 5. Systemic anticoagulation 6. Anemia 7. High systemic hypertension 8. Dyslipidemia Patient presented with probable symptomatic anemia. Although there is no report of overt GI bleeding he is found to be anemic. He has been resuscitated with the blood transfusion. Gastroenterology have evaluate the patient and the plans to proceed with endoscopy. At the present time patient denies any chest pain or dyspnea. He feels a lot better since receiving blood transfusion. Past Medical History Cardiac Medical History: Reports: Atrial Fibrillation, Congestive Heart Failure, Coronary Artery Disease, Hypertension Pulmonary Medical History: Reports: Chronic Obstructive Pulmonary Disease (C OPD), Sleep Apnea Endocrine Medical History: Reports: Diabetes Mellitus Type 2 Malignancy Medical History: Reports: Other - prostate cancer, s/p radiation Skin Medical History: Reports: Psoriasis Psychiatric Medical History: Reports: Alcohol Dependency, Depression, General Anxiety Disorder Past Surgical History Past Surgical History: Reports: Cardiac Catheterization, Coronary Artery Bypass Graft, Herniorrhaphy, Pacemaker Social History Lives with: Family, Spouse/Significant other Smoking Status: Former Smoker Electronic Cigarette use?: No Frequency of Alcohol Use: None Hx Recreational Drug Use: No Drugs: None Hx Prescription Drug Abuse: No - Advance Directive Resuscitation Status: Do Not Resuscitate Family History Family History: Reviewed & Not Pertinent, CAD Parental Family History Reviewed: No - No familial illnesses Children Family History Reviewed: NA Sibling(s) Family History Reviewed.: NA Medication/Allergy Home Medications: Atorvastatin Calcium [Lipitor 20 mg Tablet] 20 mg PO QHS 09/20/19 Citalopram Hydrobromide [Celexa 20 mg Tablet] 20 mg PO DAILY 09/20/19 Diazepam [Valium 5 mg Tablet] 5 mg PO QHS 09/20/19 Ferrous Sulfate [Feosol 325 mg Tablet] 325 mg PO DAILY 09/20/19 Furosemide [Lasix 20 mg Tablet] 60 mg PO DAILY@1600 09/20/19 Lisinopril [Prinivil 10 mg Tablet] 10 mg PO DAILY 09/20/19 Metformin HCl [Glucophage 500 mg Tablet] 500 mg PO BID 09/20/19 Metoprolol Succinate [Toprol Xl 25 mg Tab.sr] 12.5 mg PO DAILY 09/20/19 Ropinirole HCl [Requip] 1.5 mg PO QHS 09/20/19 Allergies/Adverse Reactions: oxycodone [From OxyContin] Allergy (Verified 09/20/19 13:52) Review of Systems Nose, Mouth, and Throat: PRESENT: as per HPI Cardiovascular: PRESENT: as per HPI Respiratory: PRESENT: as per HPI Gastrointestinal: PRESENT: as per HPI Physical Exam Vital Signs: Temp Pulse Resp BP Pulse Ox 97.5 F 102 H 18 130/51 H 100 09/21/19 13:07 09/21/19 13:07 09/21/19 13:07 09/21/19 13:07 09/21/19 13:07 Intake & Output 09/20/19 09/21/19 09/22/19 06:59 06:59 06:59 Intake Total 8 0 Output Total 1275 Balance -1267 0 Weight 82.554 kg General appearance: PRESENT: no acute distress, cooperative, hard of hearing Head exam: PRESENT: atraumatic, normocephalic Eye exam: PRESENT: EOMI Ear exam: PRESENT: normal external ear exam Mouth exam: PRESENT: moist Teeth exam: PRESENT: poor dentation Respiratory exam: PRESENT: crackles, decreased breath sounds, symmetrical, unlabored Cardiovascular exam: PRESENT: irregular rhythm, +S1, +S2 Pulses: PRESENT: normal radial pulses GI/Abdominal exam: PRESENT: soft Rectal exam: PRESENT: deferred Musculoskeletal exam: PRESENT: normal inspection Neurological exam: PRESENT: alert, oriented to person, oriented to place, oriented to time, oriented to situation, CN II-XII grossly intact Psychiatric exam: PRESENT: appropriate affect Skin exam: PRESENT: abrasion, rash, skin tears Results Laboratory Results: 09/21/19 07:46 09/21/19 07:46 09/20/19 09/20/19 09/20/19 14:05 14:05 16:30 WBC 9.7 RBC 2.57 L Hgb 7.9 L Hct 23.5 L MCV 91 MCH 30.8 MCHC 33.8 RDW 15.2 H Plt Count 239 Seg Neutrophils % 75.0 Retic Count (auto) VBG pH 7.46 H VBG pCO2 36.6 VBG HCO3 25.3 VBG Base Excess 1.3 Sodium 138.5 Potassium 5.0 Chloride 99 Carbon Dioxide 25 Anion Gap 15 BUN 57 H Creatinine 1.59 H Est GFR ( Amer) 50 L Glucose 123 H Calcium 9.9 Magnesium Iron TIBC % Saturation Ferritin Total Bilirubin 0.4 AST 23 Alkaline Phosphatase 45 Total Protein 7.8 Albumin 4.1 Vitamin B12 Folate Urine Color Urine Appearance Urine pH Ur Specific [place] Urine Protein Urine Glucose (UA) Urine Ketones Urine Blood Urine Nitrite Ur Leukocyte Esterase Urine WBC (Auto) Urine RBC (Auto) Blood Type Antibody Screen 09/20/19 09/20/19 09/20/19 16:30 17:47 20:45 WBC 10.3 RBC 2.34 L Hgb 7.2 L Hct 21.2 L MCV 91 MCH 30.7 MCHC 33.9 RDW 15.4 H Plt Count 214 Seg Neutrophils % Retic Count (auto) VBG pH VBG pCO2 VBG HCO3 VBG Base Excess Sodium Potassium Chloride Carbon Dioxide Anion Gap BUN Creatinine Est GFR ( Amer) Glucose Calcium Magnesium Iron TIBC % Saturation Ferritin Total Bilirubin AST Alkaline Phosphatase Total Protein Albumin Vitamin B12 Folate Urine Color YELLOW Urine Appearance CLEAR Urine pH 6.0 Ur Specific [place] 1.012 Urine Protein NEGATIVE Urine Glucose (UA) NEGATIVE Urine Ketones NEGATIVE Urine Blood NEGATIVE Urine Nitrite NEGATIVE Ur Leukocyte Esterase NEGATIVE Urine WBC (Auto) 0 Urine RBC (Auto) 0 Blood Type O POSITIVE Antibody Screen NEGATIVE 09/21/19 09/21/19 09/21/19 07:46 07:46 07:46 WBC 11.6 H RBC 2.29 L Hgb 7.0 L Hct 21.0 L MCV 92 MCH 30.6 MCHC 33.4 RDW 16.1 H Plt Count 213 Seg Neutrophils % 92.1 H Retic Count (auto) 5.79 H VBG pH VBG pCO2 VBG HCO3 VBG Base Excess Sodium 136.2 L Potassium 4.9 Chloride 98 Carbon Dioxide 25 Anion Gap 13 BUN 57 H Creatinine 1.44 H Est GFR ( Amer) 56 L Glucose 188 H Calcium 9.6 Magnesium 2.0 Iron TIBC % Saturation Ferritin Total Bilirubin AST Alkaline Phosphatase Total Protein Albumin Vitamin B12 Folate Urine Color Urine Appearance Urine pH Ur Specific [place] Urine Protein Urine Glucose (UA) Urine Ketones Urine Blood Urine Nitrite Ur Leukocyte Esterase Urine WBC (Auto) Urine RBC (Auto) Blood Type Antibody Screen 09/21/19 07:46 WBC RBC Hgb Hct MCV MCH MCHC RDW Plt Count Seg Neutrophils % Retic Count (auto) VBG pH VBG pCO2 VBG HCO3 VBG Base Excess Sodium Potassium Chloride Carbon Dioxide Anion Gap BUN Creatinine Est GFR ( Amer) Glucose Calcium Magnesium Iron 39.5 L TIBC 413 % Saturation 10 Ferritin 20.00 Total Bilirubin AST Alkaline Phosphatase Total Protein Albumin Vitamin B12 994.0 H Folate > 20.00 Urine Color Urine Appearance Urine pH Ur Specific [place] Urine Protein Urine Glucose (UA) Urine Ketones Urine Blood Urine Nitrite Ur Leukocyte Esterase Urine WBC (Auto) Urine RBC (Auto) Blood Type Antibody Screen 09/20/19 09/20/19 09/21/19 14:05 20:13 02:21 Troponin I 0.018 0.018 0.018 NT-Pro-B Natriuret Pep 1090 H 09/21/19 07:46 Troponin I < 0.012 NT-Pro-B Natriuret Pep 942 H Impressions: Chest X-Ray 09/20/19 13:57 IMPRESSION: NO ACUTE RADIOGRAPHIC FINDING IN THE CHEST. Assessment & Plan - Diagnosis (1) Anemia Qualifiers: Anemia type: unspecified type Qualified Code(s): D64.9 - Anemia, unspecified Is this a current diagnosis for this admission?: Yes Plan: Patient has increased risk of stroke and has been appropriately been managed with systemic anticoagulation for atrial fibrillation. Given presentation with profound anemia GI evaluation to exclude bleeding source is necessary. Systemic anticoagulation can be placed on hold (2) Atrial fibrillation Qualifiers: Atrial fibrillation type: permanent Qualified Code(s): I48.21 - Permanent atrial fibrillation Is this a current diagnosis for this admission?: Yes Plan: Rate controlled atrial fibrillation with evidence of conduction disease on EKG. Demand pacing. Systemic anticoagulation for increased stroke risk. However in the setting of significant bleeding and anemia this has been interrupted. We will wait for GI input to resume anticoagulation. Left chest wall permanent pacemaker-make unknown. (3) CHF (congestive heart failure) Qualifiers: Heart failure type: systolic Heart failure chronicity: acute on chronic Qualified Code(s): I50.23 - Acute on chronic systolic (congestive) heart failure Is this a current diagnosis for this admission?: Yes Plan: Patient has received blood transfusion. Appears to be fairly euvolemic on clinical assessment. - Notes Notes: Coronary artery disease status post CABG with likely permanent atrial fibrillation on systemic anticoagulation left chest wall permanent pacemaker Proceed with GI evaluation to evaluate for source of bleeding. Systemic anticoagulation has been placed on hold. Transthoracic echocardiogram
[2019-09-21] MEDS ORDERED: FUROSEMIDE INJ/PF 20 MG/2 ML SDV IV PRN (17:58)
--- NOTE | 2019-09-21 18:03 | PDOC PROGRESS REPORT ---
Subjective Progress Note for:: 09/21/19 Subjective:: Patient is a 83-year-old white male with past medical history of severe CAD status post stents and CABG, permanent A. fib on Xarelto, and COPD presents for severe dyspnea on exertion and shortness of breath. 09/21: Guaiac was not done until approximately midnight last night however repeat hemoglobin checks show gradual decline in blood count. Despite this, patient states he feels significantly better "100%" per patient. Still having some mild shortness of breath and MARIA but not that different from baseline per patient. Per nursing overnight, patient had a very hard rigid stool that caused some very mild bleeding on the stool. Patient denies any further blood loss since this bowel movement. Reason For Visit: ANEMIA, CHF (CONGESTIVE HEART FAILURE),ATRIAL Physical Exam Vital Signs: Temp Pulse Resp BP Pulse Ox 97.8 F 99 21 H 125/53 L 100 09/21/19 16:40 09/21/19 16:40 09/21/19 16:40 09/21/19 16:40 09/21/19 16:40 Pulse Oximeter Continuous Start: 09/20/19 17:40 Freq: RTQ4 Status: Active Protocol: Document 09/21/19 12:00 [facility] (Rec: 09/21/19 14:44 [facility] [id number]) Pulse Oximetry Assessment Oxygen Saturation (92-100) 100 Oxygen Flow Rate (L/min) 1 Oxygen Delivery Method Nasal Cannula Equipment Usage Equipment Standby Continuous SpO2 Machine # -- Intake & Output 09/20/19 09/21/19 09/22/19 06:59 06:59 06:59 Intake Total 8 300 Output Total 1275 Balance -1267 300 Weight 82.554 kg General appearance: PRESENT: no acute distress, well-developed, well-nourished Head exam: PRESENT: atraumatic, normocephalic Respiratory exam: PRESENT: unlabored, wheezes - Mild. ABSENT: crackles, rales, rhonchi, tachypnea Cardiovascular exam: PRESENT: RRR. ABSENT: diastolic murmur, rubs, systolic murmur GI/Abdominal exam: PRESENT: normal bowel sounds, soft. ABSENT: distended, guarding, mass, organolmegaly, rebound, tenderness Neurological exam: PRESENT: alert, awake Skin exam: PRESENT: dry, intact, warm Results Laboratory Results: 09/21/19 07:46 09/21/19 07:46 09/20/19 09/20/19 09/20/19 16:30 17:47 20:45 WBC 10.3 RBC 2.34 L Hgb 7.2 L Hct 21.2 L MCV 91 MCH 30.7 MCHC 33.9 RDW 15.4 H Plt Count 214 Seg Neutrophils % Retic Count (auto) Sodium Potassium Chloride Carbon Dioxide Anion Gap BUN Creatinine Est GFR ( Amer) Glucose Calcium Magnesium Iron TIBC % Saturation Ferritin Vitamin B12 Folate Urine Color YELLOW Urine Appearance CLEAR Urine pH 6.0 Ur Specific [place] 1.012 Urine Protein NEGATIVE Urine Glucose (UA) NEGATIVE Urine Ketones NEGATIVE Urine Blood NEGATIVE Urine Nitrite NEGATIVE Ur Leukocyte Esterase NEGATIVE Urine WBC (Auto) 0 Urine RBC (Auto) 0 Blood Type O POSITIVE Antibody Screen NEGATIVE 09/21/19 09/21/19 09/21/19 07:46 07:46 07:46 WBC 11.6 H RBC 2.29 L Hgb 7.0 L Hct 21.0 L MCV 92 MCH 30.6 MCHC 33.4 RDW 16.1 H Plt Count 213 Seg Neutrophils % 92.1 H Retic Count (auto) 5.79 H Sodium 136.2 L Potassium 4.9 Chloride 98 Carbon Dioxide 25 Anion Gap 13 BUN 57 H Creatinine 1.44 H Est GFR ( Amer) 56 L Glucose 188 H Calcium 9.6 Magnesium 2.0 Iron TIBC % Saturation Ferritin Vitamin B12 Folate Urine Color Urine Appearance Urine pH Ur Specific [place] Urine Protein Urine Glucose (UA) Urine Ketones Urine Blood Urine Nitrite Ur Leukocyte Esterase Urine WBC (Auto) Urine RBC (Auto) Blood Type Antibody Screen 09/21/19 07:46 WBC RBC Hgb Hct MCV MCH MCHC RDW Plt Count Seg Neutrophils % Retic Count (auto) Sodium Potassium Chloride Carbon Dioxide Anion Gap BUN Creatinine Est GFR ( Amer) Glucose Calcium Magnesium Iron 39.5 L TIBC 413 % Saturation 10 Ferritin 20.00 Vitamin B12 994.0 H Folate > 20.00 Urine Color Urine Appearance Urine pH Ur Specific [place] Urine Protein Urine Glucose (UA) Urine Ketones Urine Blood Urine Nitrite Ur Leukocyte Esterase Urine WBC (Auto) Urine RBC (Auto) Blood Type Antibody Screen 09/20/19 09/20/19 09/21/19 14:05 20:13 02:21 Troponin I 0.018 0.018 0.018 NT-Pro-B Natriuret Pep 1090 H 09/21/19 07:46 Troponin I < 0.012 NT-Pro-B Natriuret Pep 942 H Impressions: Chest X-Ray 09/20/19 13:57 IMPRESSION: NO ACUTE RADIOGRAPHIC FINDING IN THE CHEST. Assessment and Plan - Diagnosis (1) Acute on chronic systolic (congestive) heart failure Is this a current diagnosis for this admission?: Yes Plan: Admission: -Suspect this is the cause of his respiratory failure in addition to COPD exacerbation -Cardiology consulted -IV Lasix -Consider repeat echocardiogram BNP and troponin elevated however troponin is notably lower than previous values Continued on Lasix IV, additional IV Lasix available if blood products cause volume overload May consider repeat echocardiogram if he does not improve (2) COPD exacerbation Is this a current diagnosis for this admission?: Yes Plan: Admission: -Suspect this may have exacerbated patient's CHF as he is wheezing on admission and notably short of breath, coughing thick white sputum DuoNeb scheduled Continue home inhalers Pulmonary hygiene Supplement oxygen to goal 89 to 94% Schedule prednisone Significant improvement since starting above interventions, nearly back to baseline from a respiratory standpoint per patient (3) Normochromic anemia Is this a current diagnosis for this admission?: Yes (4) Atrial fibrillation Qualifiers: Atrial fibrillation type: permanent Qualified Code(s): I48.21 - Permanent atrial fibrillation Is this a current diagnosis for this admission?: Yes Plan: Holding Xarelto for possible GI bleed per GI recommendation. Timing restart per cardiology and GI. Pacemaker already in place. Functioning properly per patient. Continue holding Xarelto until GI deems it safe to restart this; cardiology okay with holding this medication (5) CHF (congestive heart failure) Qualifiers: Heart failure type: systolic Heart failure chronicity: acute on chronic Qualified Code(s): I50.23 - Acute on chronic systolic (congestive) heart failure Is this a current diagnosis for this admission?: Yes Plan: IV Lasix, home cardiac medications (6) Psoriasis Is this a current diagnosis for this admission?: Yes (7) Acute blood loss anemia Is this a current diagnosis for this admission?: Yes Plan: Highly suspect lower GI bleed, potentially from internal hemorrhoids given patient has chronic severe constipation and briefly bled from a very hard stool passed in the hospital GI consulted: Planning EGD and colonoscopy hopefully tomorrow N.p.o. at midnight prior to any GI procedures; bowel prep per GI Trend hemoglobin, transfuse for hemoglobin drop below 7 If acute large bloody bowel movement, get stat CTA abdomen and page GI immediately; may need IR intervention for embolization if he develops a brisk bleed - Time Time Spent with patient: 25-34 minutes Anticipated discharge: Home - Inpatient Certification Based on my medical assessment, after consideration of the patient's comorbid ities, presenting symptoms, or acuity I expect that the services needed warrant INPATIENT care.: Yes I certify that my determination is in accordance with my understanding of Medicare's requirements for reasonable and necessary INPATIENT services [42 CFR 412.3e].: Yes Medical Necessity: Significant Comorbidiites Make Outpatient Treatment Too Risky, Need Close Monitoring Due to Risk of Patient Decompensation, Risk of Complication if Not Cared For in Hospital
[2019-09-21 20:22] LABS: HEMATOCRIT 23.1 % (37.9-51.0); MEAN CORPUSCULAR HEMOGLOBIN 29.4 pg (27.0-33.4); MEAN CORPUSCULAR HGB CONC 32.9 g/dL (32.0-36.0); MEAN CORPUSCULAR VOLUME 89 fl (80-97); PLATELET COUNT 209 10^3/uL (150-450); RED BLOOD COUNT 2.59 10^6/uL (4.35-5.55); RED CELL DISTRIBUTION WIDTH 16.6 % (11.5-14.0); WHITE BLOOD COUNT 14.3 10^3/uL (4.0-10.5)
[2019-09-21 20:28] LABS: HEMOGLOBIN 7.6 g/dL (13.5-17.0)
[2019-09-21] MEDS: ATORVASTATIN CALCIUM 20 MG TABLET PO SCH (23:05)
[2019-09-21] MEDS: DIAZEPAM 5 MG TABLET PO SCH (23:05)
[2019-09-22] MEDS ORDERED: ROPINIROLE HCL 1 MG TABLET ONE (00:25)
[2019-09-22] MEDS: ROPINIROLE HCL 1 MG TABLET PO SCH ×2 (00:31→21:36)
[2019-09-22] MEDS: IPRATROPIUM/ALBUTEROL 0.5-2.5 MG/3 ML AMPUL NEB SCH ×4 (01:38→20:15)
[2019-09-22 05:52] LABS: ABSOLUTE LYMPHOCYTES (AUTO) 1.4 10^3/uL (0.5-4.7); ABSOLUTE MONOCYTES (AUTO) 1.4 10^3/uL (0.1-1.4); ABSOLUTE NEUT (AUTO) 14.6 10^3/uL (1.7-8.2); BASOPHILS % (AUTO) 0.2 % (0-2); EOSINOPHILS % (AUTO) 0.2 % (0-6); HEMATOCRIT 25.3 % (37.9-51.0); HEMOGLOBIN 8.3 g/dL (13.5-17.0); LYMPHOCYTES % (AUTO) 8.2 % (13-45); MEAN CORPUSCULAR HEMOGLOBIN 29.2 pg (27.0-33.4); MEAN CORPUSCULAR HGB CONC 32.9 g/dL (32.0-36.0); MEAN CORPUSCULAR VOLUME 89 fl (80-97); PLATELET COUNT 219 10^3/uL (150-450); RED BLOOD COUNT 2.86 10^6/uL (4.35-5.55); RED CELL DISTRIBUTION WIDTH 17.1 % (11.5-14.0); SEGMENTED NEUTROPHILS % (AUTO) 83.4 % (42-78); TOTAL CELLS COUNTED % (AUTO) 100 %; WHITE BLOOD COUNT 17.6 10^3/uL (4.0-10.5)
[2019-09-22] MEDS ORDERED: IRON SUCROSE COMPLEX INJ/PF 100 MG/5 ML SDV IV ONE (09:04)
[2019-09-22] MEDS: CITALOPRAM HYDROBROMIDE 20 MG TABLET PO SCH ×2 (09:48→16:49)
[2019-09-22] MEDS: PREDNISONE 20 MG TABLET PO SCH ×2 (09:48→16:50)
[2019-09-22] MEDS: METOPROLOL SUCCINATE 25 MG TAB.SR.24H PO SCH ×2 (09:48→16:49)
[2019-09-22] MEDS: FERROUS SULFATE 325 MG TABLET PO SCH ×2 (09:48→16:50)
[2019-09-22] MEDS: LISINOPRIL 5 MG TABLET PO SCH ×2 (09:48→16:49)
[2019-09-22] MEDS: FUROSEMIDE INJ/PF 40 MG/4 ML SDV IV SCH ×2 (09:49→21:35)
[2019-09-22] MEDS ORDERED: IRON SUCROSE COMPLEX 500 MG in NORMAL SALINE 250 ML IV ONE (11:00)
[2019-09-22] MEDS ORDERED: PEG 3350/NA SULF,BICARB,CL/KCL 4000 ML PO ONE (17:00)
--- NOTE | 2019-09-22 17:40 | PDOC PROGRESS REPORT ---
Subjective Progress Note for:: 09/22/19 Subjective:: Patient is a 83-year-old white male with past medical history of severe CAD status post stents and CABG, permanent A. fib on Xarelto, and COPD presents for severe dyspnea on exertion and shortness of breath. 09/21: Guaiac was not done until approximately midnight last night however repeat hemoglobin checks show gradual decline in blood count. Despite this, patient states he feels significantly better "100%" per patient. Still having some mild shortness of breath and MARIA but not that different from baseline per patient. Per nursing overnight, patient had a very hard rigid stool that caused some very mild bleeding on the stool. Patient denies any further blood loss since this bowel movement. 09/22: Per patient, feels significantly improved from a respiratory standpoint. No frankly bloody stools per patient but did have a black stool last night. No new complaints. Discussed with patient that he is iron deficient and he responded that he had stopped taking oral iron because he did not think he needed it. Reason For Visit: ANEMIA, CHF (CONGESTIVE HEART FAILURE),ATRIAL Physical Exam Vital Signs: Temp Pulse Resp BP Pulse Ox 97.4 F 65 16 107/38 L 97 09/22/19 08:36 09/22/19 13:10 09/22/19 13:10 09/22/19 08:36 09/22/19 13:10 Pulse Oximeter Continuous Start: 09/20/19 17:40 Freq: RTQ4 Status: Active Protocol: Document 09/22/19 12:00 [facility] (Rec: 09/22/19 13:08 [facility] [id number]) Pulse Oximetry Assessment Oxygen Saturation (92-100) 90 Oxygen Flow Rate (L/min) 2 Oxygen Delivery Method Nasal Cannula Equipment Usage Equipment in Use Continuous SpO2 Machine # 1 Intake & Output 09/21/19 09/22/19 09/23/19 06:59 06:59 06:59 Intake Total 8 300 275 Output Total 0612 104 274 Balance -1267 -345 -225 Weight 82.554 kg General appearance: PRESENT: no acute distress, well-developed, well-nourished Head exam: PRESENT: atraumatic, normocephalic Eye exam: PRESENT: conjunctiva pink Respiratory exam: PRESENT: unlabored, wheezes - Mild. ABSENT: crackles, rhonchi, tachypnea Cardiovascular exam: PRESENT: irregular rhythm. ABSENT: diastolic murmur, rubs, systolic murmur GI/Abdominal exam: PRESENT: normal bowel sounds, soft. ABSENT: distended, guarding, mass, organolmegaly, rebound, tenderness Rectal exam: PRESENT: deferred Extremities exam: PRESENT: pedal edema - Trace to 1+, mild Neurological exam: PRESENT: alert, awake Psychiatric exam: PRESENT: appropriate affect, normal mood Skin exam: PRESENT: dry, skin tears - Various healing skin tears on legs mostly scabbed that have been excoriated per patient due to itchy psoriasis that he has not been treating with anything, warm Results Laboratory Results: 09/22/19 05:16 09/21/19 07:46 09/21/19 09/22/19 19:57 05:16 WBC 14.3 H 17.6 H RBC 2.59 L 2.86 L Hgb 7.6 L 8.3 L Hct 23.1 L 25.3 L MCV 89 89 MCH 29.4 29.2 MCHC 32.9 32.9 RDW 16.6 H 17.1 H Plt Count 209 219 Seg Neutrophils % 83.4 H 09/20/19 09/20/19 09/21/19 14:05 20:13 02:21 Troponin I 0.018 0.018 0.018 NT-Pro-B Natriuret Pep 1090 H 09/21/19 07:46 Troponin I < 0.012 NT-Pro-B Natriuret Pep 942 H Impressions: Chest X-Ray 09/20/19 13:57 IMPRESSION: NO ACUTE RADIOGRAPHIC FINDING IN THE CHEST. Assessment and Plan - Diagnosis (1) Acute on chronic systolic (congestive) heart failure Is this a current diagnosis for this admission?: Yes Plan: Admission: -Suspect this is the cause of his respiratory failure in addition to COPD exace rbation -Cardiology consulted -IV Lasix -Consider repeat echocardiogram BNP and troponin elevated however troponin is notably lower than previous values Continued on Lasix IV, additional IV Lasix available if blood products cause volume overload May consider repeat echocardiogram if he does not improve Respiratory failure becoming optimized for the upper and lower endoscopies GI as planned for the patient (2) COPD exacerbation Is this a current diagnosis for this admission?: Yes Plan: Admission: -Suspect this may have exacerbated patient's CHF as he is wheezing on admission and notably short of breath, coughing thick white sputum DuoNeb scheduled Continue home inhalers Pulmonary hygiene Supplement oxygen to goal 89 to 94% Schedule prednisone Significant improvement since starting above interventions, nearly back to baseline from a respiratory standpoint per patient Steroids can continue for total of 5 days then stop (3) Normochromic anemia Is this a current diagnosis for this admission?: Yes (4) Atrial fibrillation Qualifiers: Atrial fibrillation type: permanent Qualified Code(s): I48.21 - Permanent atrial fibrillation Is this a current diagnosis for this admission?: Yes (5) CHF (congestive heart failure) Qualifiers: Heart failure type: systolic Heart failure chronicity: acute on chronic Qualified Code(s): I50.23 - Acute on chronic systolic (congestive) heart failure Is this a current diagnosis for this admission?: Yes (6) Psoriasis Is this a current diagnosis for this admission?: Yes (7) Acute blood loss anemia Is this a current diagnosis for this admission?: Yes Plan: Highly suspect lower GI bleed, potentially from internal hemorrhoids given patient has chronic severe constipation and briefly bled from a very hard stool passed in the hospital GI consulted: Planning EGD and colonoscopy hopefully tomorrow N.p.o. at midnight prior to any GI procedures; bowel prep per GI Trend hemoglobin, transfuse for hemoglobin drop below 7 If acute large bloody bowel movement, get stat CTA abdomen and page GI im mediately; may need IR intervention for embolization if he develops a brisk bleed Await GI return to see patient in planning of upper and lower endoscopies. If you do not hear from them by tomorrow, I will reach out to them myself. - Time Time Spent with patient: 15-24 minutes - Inpatient Certification Medical Necessity: Need Close Monitoring Due to Risk of Patient Decompensation, Risk of Complication if Not Cared For in Hospital
[2019-09-22 18:48] LABS: HEMATOCRIT 25.8 % (37.9-51.0); HEMOGLOBIN 8.6 g/dL (13.5-17.0); MEAN CORPUSCULAR HGB CONC 33.4 g/dL (32.0-36.0); MEAN CORPUSCULAR VOLUME 90 fl (80-97); PLATELET COUNT 225 10^3/uL (150-450); RED BLOOD COUNT 2.88 10^6/uL (4.35-5.55); RED CELL DISTRIBUTION WIDTH 17.3 % (11.5-14.0)
--- NOTE | 2019-09-22 18:56 | PDOC PROGRESS REPORT ---
Subjective Progress Note for:: 09/22/19 Subjective:: Patient is resting in bed. No complaints reported does not report any blood in his stool. Reason For Visit: ANEMIA, CHF (CONGESTIVE HEART FAILURE),ATRIAL Physical Exam Vital Signs: Temp Pulse Resp BP Pulse Ox 97.4 F 65 16 107/38 L 97 09/22/19 08:36 09/22/19 13:10 09/22/19 13:10 09/22/19 08:36 09/22/19 13:10 Pulse Oximeter Continuous Start: 09/20/19 17:40 Freq: RTQ4 Status: Active Protocol: Document 09/22/19 12:00 [facility] (Rec: 09/22/19 13:08 [facility] [id number]) Pulse Oximetry Assessment Oxygen Saturation (92-100) 90 Oxygen Flow Rate (L/min) 2 Oxygen Delivery Method Nasal Cannula Equipment Usage Equipment in Use Continuous SpO2 Machine # 1 Intake & Output 09/21/19 09/22/19 09/23/19 06:59 06:59 06:59 Intake Total 8 300 275 Output Total 1275 645 500 Balance -1267 -345 -225 Weight 82.554 kg General appearance: PRESENT: no acute distress, cooperative Head exam: PRESENT: atraumatic, normocephalic Eye exam: PRESENT: EOMI Mouth exam: PRESENT: moist Respiratory exam: PRESENT: clear to auscultation luis, symmetrical, unlabored Cardiovascular exam: PRESENT: irregular rhythm, +S1, +S2 GI/Abdominal exam: PRESENT: soft Rectal exam: PRESENT: deferred Neurological exam: PRESENT: alert, awake, oriented to person, oriented to place, oriented to time, oriented to situation Psychiatric exam: PRESENT: appropriate affect Skin exam: PRESENT: dry, normal color Results Laboratory Results: 09/21/19 07:46 09/21/19 09/22/19 19:57 05:16 WBC 14.3 H 17.6 H RBC 2.59 L 2.86 L Hgb 7.6 L 8.3 L Hct 23.1 L 25.3 L MCV 89 89 MCH 29.4 29.2 MCHC 32.9 32.9 RDW 16.6 H 17.1 H Plt Count 209 219 Seg Neutrophils % 83.4 H 09/20/19 09/20/19 09/21/19 14:05 20:13 02:21 Troponin I 0.018 0.018 0.018 NT-Pro-B Natriuret Pep 1090 H 09/21/19 07:46 Troponin I < 0.012 NT-Pro-B Natriuret Pep 942 H Impressions: Chest X-Ray 09/20/19 13:57 IMPRESSION: NO ACUTE RADIOGRAPHIC FINDING IN THE CHEST. Assessment & Plan - Diagnosis (1) Anemia Qualifiers: Anemia type: unspecified type Qualified Code(s): D64.9 - Anemia, u nspecified Is this a current diagnosis for this admission?: Yes Plan: Likely blood loss anemia given systemic anticoagulation and likely gradual onset Iron supplementation Patient has received blood transfusion Gastrointestinal studies are being planned. (2) Atrial fibrillation Qualifiers: Atrial fibrillation type: permanent Qualified Code(s): I48.21 - Permanent atrial fibrillation Is this a current diagnosis for this admission?: Yes Plan: Systemic anticoagulation is on hold. Patient has left upper chest wall permanent pacemaker. Rate control strategy only (3) CHF (congestive heart failure) Qualifiers: Heart failure type: systolic Heart failure chronicity: acute on chronic Qualified Code(s): I50.23 - Acute on chronic systolic (congestive) heart failure Is this a current diagnosis for this admission?: Yes Plan: Patient appears euvolemic. Likely had mildly decompensated congestive heart failure in the setting of anemia at presentation which is improved since transfusion of blood.
[2019-09-22] MEDS: DIAZEPAM 5 MG TABLET PO SCH (21:36)
[2019-09-22] MEDS: ATORVASTATIN CALCIUM 20 MG TABLET PO SCH (21:36)
[2019-09-23] MEDS: IPRATROPIUM/ALBUTEROL 0.5-2.5 MG/3 ML AMPUL NEB SCH ×3 (02:16→13:12)
--- NOTE | 2019-09-23 07:29 | PDOC PROGRESS REPORT ---
Subjective Progress Note for:: 09/23/19 Subjective:: Patient is resting in bed. He is n.p.o. for possible endoscopy today. Has received a bowel prep. No events reported to me. Reason For Visit: ANEMIA, CHF (CONGESTIVE HEART FAILURE),ATRIAL Physical Exam Vital Signs: Temp Pulse Resp BP Pulse Ox 98.6 F 70 22 H 144/58 H 100 09/22/19 22:00 09/23/19 02:10 09/23/19 02:10 09/22/19 22:00 09/23/19 02:10 Pulse Oximeter Continuous Start: 09/20/19 17:40 Freq: RTQ4 Status: Active Protocol: Document 09/23/19 00:05 [facility] (Rec: 09/23/19 00:16 [facility] [id number]) Pulse Oximetry Assessment Oxygen Saturation (92-100) 100 Oxygen Flow Rate (L/min) 2 Oxygen Delivery Method Nasal Cannula Fraction of Inspired Oxygen (FIO2) 28 Equipment Usage Equipment in Use Continuous Pulse Oximeter 24 Hour Charge Charge Now Continuous SpO2 Machine # 1 Intake & Output 09/22/19 09/23/19 09/24/19 06:59 06:59 06:59 Intake Total 300 1243 Output Total 645 1900 Balance -345 -657 Weight 66.5 kg General appearance: PRESENT: no acute distress Head exam: PRESENT: normocephalic Respiratory exam: PRESENT: symmetrical, unlabored Cardiovascular exam: PRESENT: irregular rhythm Rectal exam: PRESENT: deferred Results Laboratory Results: 09/22/19 18:09 09/21/19 07:46 09/22/19 18:09 WBC 13.0 H RBC 2.88 L Hgb 8.6 L Hct 25.8 L MCV 90 MCH 30.0 MCHC 33.4 RDW 17.3 H Plt Count 225 09/20/19 09/20/19 09/21/19 14:05 20:13 02:21 Troponin I 0.018 0.018 0.018 NT-Pro-B Natriuret Pep 1090 H 09/21/19 07:46 Troponin I < 0.012 NT-Pro-B Natriuret Pep 942 H Impressions: Chest X-Ray 09/20/19 13:57 IMPRESSION: NO ACUTE RADIOGRAPHIC FINDING IN THE CHEST. Assessment & Plan - Diagnosis (1) Anemia Qualifiers: Anemia type: unspecified type Qualified Code(s): D64.9 - Anemia, unspecified Is this a current diagnosis for this admission?: Yes Plan: Likely blood loss anemia given systemic anticoagulation and likely gradual onset Iron supplementation Patient has received blood transfusion Patient is being considered for endoscopy today. Bowel prep has been done. (2) Atrial fibrillation Qualifiers: Atrial fibrillation type: permanent Qualified Code(s): I48.21 - Permanent atrial fibrillation Is this a current diagnosis for this admission?: Yes Plan: Systemic anticoagulation is on hold. Patient has left upper chest wall permanent pacemaker. Rate control strategy only (3) CHF (congestive heart failure) Qualifiers: Heart failure type: systolic Heart failure chronicity: acute on chronic Qualified Code(s): I50.23 - Acute on chronic systolic (congestive) heart failure Is this a current diagnosis for this admission?: Yes Plan: Patient appears euvolemic. Likely had mildly decompensated congestive heart failure in the setting of anemia at presentation which is improved since transfusion of blood.
[2019-09-23] MEDS ORDERED: PROPOFOL INJ 200 MG/20 ML VIAL IV ONE ×2 (07:44→11:28)
[2019-09-23] MEDS: FUROSEMIDE INJ/PF 40 MG/4 ML SDV IV SCH ×2 (09:26→22:10)
[2019-09-23] MEDS: FERROUS SULFATE 325 MG TABLET PO SCH (09:27)
[2019-09-23] MEDS: CITALOPRAM HYDROBROMIDE 20 MG TABLET PO SCH (09:27)
[2019-09-23] MEDS: PREDNISONE 20 MG TABLET PO SCH (09:27)
[2019-09-23] MEDS: METOPROLOL SUCCINATE 25 MG TAB.SR.24H PO SCH (09:27)
[2019-09-23] MEDS: LISINOPRIL 5 MG TABLET PO SCH (09:27)
[2019-09-23 10:56] LABS: ABSOLUTE LYMPHOCYTES (AUTO) 1.2 10^3/uL (0.5-4.7); ABSOLUTE MONOCYTES (AUTO) 0.8 10^3/uL (0.1-1.4); ABSOLUTE NEUT (AUTO) 9.3 10^3/uL (1.7-8.2); BASOPHILS % (AUTO) 0.2 % (0-2); EOSINOPHILS % (AUTO) 0.2 % (0-6); HEMATOCRIT 26.1 % (37.9-51.0); HEMOGLOBIN 8.7 g/dL (13.5-17.0); LYMPHOCYTES % (AUTO) 10.5 % (13-45); MEAN CORPUSCULAR HEMOGLOBIN 29.7 pg (27.0-33.4); MEAN CORPUSCULAR HGB CONC 33.4 g/dL (32.0-36.0); MEAN CORPUSCULAR VOLUME 89 fl (80-97); MONOCYTES % (AUTO) 7.1 % (3-13); PLATELET COUNT 256 10^3/uL (150-450); RED BLOOD COUNT 2.93 10^6/uL (4.35-5.55); RED CELL DISTRIBUTION WIDTH 17.3 % (11.5-14.0); TOTAL CELLS COUNTED % (AUTO) 100 %; WHITE BLOOD COUNT 11.3 10^3/uL (4.0-10.5)
--- NOTE | 2019-09-23 12:39 | Operative Report ---
Operative Report DATE OF SURGERY: 09/23/19 Operative Report: The risks, benefits and alternatives of the procedure including the risk of bleeding, perforation requiring surgery have been explained to the patient in detail and informed consent has been obtained. Patient is taken back to the operating room and placed in a left, lateral decubital position. Timeout was called. Propofol medication is administered. A rectal examination is performed however once the scope was inserted into the patient's rectum it was noted that he had solid stool. Unable to proceed past 30 cm. The procedure was then abandoned. He will need to be rescheduled. Over the weekend he will need to be kept on a clear liquid diet and reprepped. This was communicated to the nurse taking care of him. The risks benefits and alternatives of the procedure explained to the patient in detail and informed consent is obtained.A GIF Olympus video scope was inserted into the patient's mouth and hypopharynx, the esophagus is identified intubated and insufflated ,the scope was then advanced through the esophagus stomach and duodenum ,retroflexion maneuver is done ,the esophagus stomach and first and second portions of the duodenum examined PREOPERATIVE DIAGNOSIS: Possible GI bleeding POSTOPERATIVE DIAGNOSIS: No active upper GI bleeding however there is some gastric erosions status post biopsy. Solid stool consisting mainly of food material and dark green material in the colon. Patient not adequately prepped. See above OPERATION: EGD with biopsy. Diagnostic flexible sigmoidoscopy SURGEON: JUNAID CAMPOS ANESTHESIA: LMAC TISSUE REMOVED OR ALTERED: As noted above. COMPLICATIONS: None. ESTIMATED BLOOD LOSS: None. INTRAOPERATIVE FINDINGS: As noted above. PROCEDURE: Patient tolerated the procedure well. No immediate postprocedure complications are noted. Patient is sent back to his room in good condition. Clear liquid diet over the weekend. Colon will need to be reprepped since prep was inadequate. No active bleeding seen however Further recommendations to follow Some diverticulosis is noted
--- NOTE | 2019-09-23 18:24 | PDOC PROGRESS REPORT ---
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 fib on Xarelto, and COPD presents for severe dyspnea on exertion and shortness of breath. 09/21: Guaiac was not done until approximately midnight last night however repeat hemoglobin checks show gradual decline in blood count. Despite this, patient states he feels significantly better "100%" per patient. Still having some mild shortness of breath and MARIA but not that different from baseline per patient. Per nursing overnight, patient had a very hard rigid stool that caused some very mild bleeding on the stool. Patient denies any further blood loss since this bowel movement. 09/22: Per patient, feels significantly improved from a respiratory standpoint. No frankly bloody stools per patient but did have a black stool last night. No new complaints. Discussed with patient that he is iron deficient and he responded that he had stopped taking oral iron because he did not think he needed it. 09/23: Patient becoming agitated with nursing intermittently because he thinks they are helping him enough. I discussed this with the nurse and she stated patient was under the impression he could not get up by himself though he had been told this on more than one occasion. His states he simply feels good enough to start complaining now. Patient has no new complaints otherwise. Hemoglobin stable so far. Going to endoscopy today. Reason For Visit: ANEMIA, CHF (CONGESTIVE HEART FAILURE),ATRIAL Physical Exam Vital Signs: Temp Pulse Resp BP Pulse Ox 97.7 F 66 14 111/40 L 100 09/23/19 12:44 09/23/19 13:12 09/23/19 13:12 09/23/19 12:44 09/23/19 13:12 Pulse Oximeter Continuous Start: 09/20/19 17:40 Freq: RTQ4 Status: Active Protocol: Document 09/23/19 13:12 [facility] [place]Rec[place] 09/23/19 13:24 [facility] [id number] Pulse Oximetry Assessment Oxygen Saturation (92-100) 100 Oxygen Delivery Method Room Air Fraction of Inspired Oxygen (FIO2) 21 Equipment Usage Equipment in Use Continuous SpO2 Machine # N 1 Intake & Output 09/22/19 09/23/19 09/24/19 06:59 06:59 06:59 Intake Total 300 1243 900 Output Total 640 0290 Balance -345 -657 900 Weight 66.5 kg General appearance: PRESENT: no acute distress, well-developed, well-nourished Head exam: PRESENT: atraumatic, normocephalic Eye exam: PRESENT: conjunctiva pink Respiratory exam: PRESENT: clear to auscultation luis. ABSENT: rales, rhonchi, wheezes Cardiovascular exam: PRESENT: RRR. ABSENT: diastolic murmur, rubs, systolic murmur GI/Abdominal exam: PRESENT: normal bowel sounds, soft. ABSENT: distended, guarding, mass, organolmegaly, rebound, tenderness Neurological exam: PRESENT: alert, awake Skin exam: PRESENT: dry, intact, warm, other - Excoriated wounds on legs are now healing quite well. Results Laboratory Results: 09/23/19 10:15 09/21/19 07:46 09/22/19 09/23/19 18:09 10:15 WBC 13.0 H 11.3 H RBC 2.88 L 2.93 L Hgb 8.6 L 8.7 L Hct 25.8 L 26.1 L MCV 90 89 MCH 30.0 29.7 MCHC 33.4 33.4 RDW 17.3 H 17.3 H Plt Count 225 256 Seg Neutrophils % 82.0 H 09/20/19 09/20/19 09/21/19 14:05 20:13 02:21 Troponin I 0.018 0.018 0.018 NT-Pro-B Natriuret Pep 1090 H 09/21/19 07:46 Troponin I < 0.012 NT-Pro-B Natriuret Pep 942 H Impressions: Chest X-Ray 09/20/19 13:57 IMPRESSION: NO ACUTE RADIOGRAPHIC FINDING IN THE CHEST. Assessment and Plan - Diagnosis (1) Acute GI bleeding Is this a current diagnosis for this admission?: Yes Plan: -Suspect upper source EGD on 09/23 showed nonbleeding ulcerations Flex sig on 09/23 showed inadequate bowel prep and will need to re-done on 09/26 (2) Acute on chronic systolic (congestive) heart failure Is this a current diagnosis for this admission?: Yes Plan: Admission: -Suspect this is the cause of his respiratory failure in addition to COPD exacerbation -Cardiology consulted -IV Lasix -Consider repeat echocardiogram BNP and troponin elevated however troponin is notably lower than previous values Continued on Lasix IV, additional IV Lasix available if blood products cause volume overload May consider repeat echocardiogram if he does not improve Respiratory failure becoming optimized for the upper and lower endoscopies GI as planned for the patient Heart failure symptoms seem to be back to baseline per patient (3) COPD exacerbation Is this a current diagnosis for this admission?: Yes Plan: Admission: -Suspect this may have exacerbated patient's CHF as he is wheezing on admission and notably short of breath, coughing thick white sputum DuoNeb scheduled Continue home inhalers Pulmonary hygiene Supplement oxygen to goal 89 to 94% Schedule prednisone Significant improvement since starting above interventions, nearly back to baseline from a respiratory standpoint per patient Steroids can continue for total of 5 days then stop COPD symptoms seem to be back to baseline per patient, wheezing essentially resolved (4) Normochromic anemia Is this a current diagnosis for this admission?: Yes (5) Atrial fibrillation Qualifiers: Atrial fibrillation type: permanent Qualified Code(s): I48.21 - Permanent atrial fibrillation Is this a current diagnosis for this admission?: Yes (6) CHF (congestive heart failure) Qualifiers: Heart failure type: systolic Heart failure chronicity: acute on chronic Qualified Code(s): I50.23 - Acute on chronic systolic (congestive) heart failure Is this a current diagnosis for this admission?: Yes (7) Psoriasis Is this a current diagnosis for this admission?: Yes (8) Acute blood loss anemia Is this a current diagnosis for this admission?: Yes - Time Time Spent with patient: 15-24 minutes Anticipated discharge: Home - Inpatient Certification Medical Necessity: Need Close Monitoring Due to Risk of Patient Decompensation, Risk of Complication if Not Cared For in Hospital
[2019-09-23] MEDS: ROPINIROLE HCL 1 MG TABLET PO SCH (22:09)
[2019-09-23] MEDS: DIAZEPAM 5 MG TABLET PO SCH (22:10)
[2019-09-23] MEDS: ATORVASTATIN CALCIUM 20 MG TABLET PO SCH (22:10)
[2019-09-24] MEDS: IPRATROPIUM/ALBUTEROL 0.5-2.5 MG/3 ML AMPUL NEB SCH ×5 (00:10→19:06)
[2019-09-24 10:25] LABS: ANION GAP 12 (5-19); BLOOD UREA NITROGEN 30 mg/dL (7-20); CALCIUM 8.9 mg/dL (8.4-10.2); CARBON DIOXIDE 28 mmol/L (22-30); CHLORIDE 96 mmol/L (98-107); GLUCOSE 170 mg/dL (75-110); POTASSIUM 3.4 mmol/L (3.6-5.0)
[2019-09-24] MEDS: CITALOPRAM HYDROBROMIDE 20 MG TABLET PO SCH (10:54)
[2019-09-24] MEDS: LISINOPRIL 5 MG TABLET PO SCH (10:54)
[2019-09-24] MEDS: PREDNISONE 20 MG TABLET PO SCH (10:55)
[2019-09-24] MEDS: METOPROLOL SUCCINATE 25 MG TAB.SR.24H PO SCH (10:55)
[2019-09-24] MEDS: FUROSEMIDE INJ/PF 40 MG/4 ML SDV IV SCH ×2 (10:55→22:34)
[2019-09-24] MEDS: FERROUS SULFATE 325 MG TABLET PO SCH (10:55)
--- NOTE | 2019-09-24 16:50 | PDOC PROGRESS REPORT ---
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 fib on Xarelto, and COPD presents for severe dyspnea on exertion and shortness of breath. 09/21: Guaiac was not done until approximately midnight last night however repeat hemoglobin checks show gradual decline in blood count. Despite this, patient states he feels significantly better "100%" per patient. Still having some mild shortness of breath and MARIA but not that different from baseline per patient. Per nursing overnight, patient had a very hard rigid stool that caused some very mild bleeding on the stool. Patient denies any further blood loss since this bowel movement. 09/22: Per patient, feels significantly improved from a respiratory standpoint. No frankly bloody stools per patient but did have a black stool last night. No new complaints. Discussed with patient that he is iron deficient and he responded that he had stopped taking oral iron because he did not think he needed it. 09/23: Patient becoming agitated with nursing intermittently because he thinks they are helping him enough. I discussed this with the nurse and she stated patient was under the impression he could not get up by himself though he had been told this on more than one occasion. His states he simply feels good enough to start complaining now. Patient has no new complaints otherwise. Hemoglobin stable so far. Going to endoscopy today. 09/24: Patient apologized multiple times of being angry and upset with nursing yesterday. His breathing is improved and he is tolerating his bowel prep. No new complaints Reason For Visit: ANEMIA, CHF (CONGESTIVE HEART FAILURE),ATRIAL Physical Exam Vital Signs: Temp Pulse Resp BP Pulse Ox 97.5 F 68 16 109/53 L 98 09/24/19 08:13 09/24/19 13:30 09/24/19 13:30 09/24/19 08:13 09/24/19 16:00 Pulse Oximeter Continuous Start: 09/20/19 17:40 Freq: RTQ4 Status: Active Protocol: Document 09/24/19 16:00 [facility] (Rec: 09/24/19 16:15 [facility] [id number]) Pulse Oximetry Assessment Oxygen Saturation (92-100) 98 Oxygen Flow Rate (L/min) 3 Oxygen Delivery Method Nasal Cannula Fraction of Inspired Oxygen (FIO2) 32 Equipment Usage Equipment in Use Continuous SpO2 Machine # n1 Intake & Output 09/23/19 09/24/19 09/25/19 06:59 06:59 06:59 Intake Total 1243 1680 Output Total 1900 Balance -657 1680 Weight 66.5 kg 65.9 kg General appearance: PRESENT: no acute distress, well-developed, well-nourished Head exam: PRESENT: atraumatic, normocephalic Eye exam: PRESENT: conjunctiva pink. ABSENT: scleral icterus Neck exam: ABSENT: JVD Respiratory exam: PRESENT: clear to auscultation luis. ABSENT: rales, rhonchi, wheezes Cardiovascular exam: PRESENT: RRR. ABSENT: diastolic murmur, rubs, systolic murmur GI/Abdominal exam: PRESENT: normal bowel sounds, soft. ABSENT: distended, guarding, mass, organolmegaly, rebound, tenderness Neurological exam: PRESENT: alert, awake Psychiatric exam: PRESENT: appropriate affect, normal mood Skin exam: PRESENT: dry, intact, warm Results Laboratory Results: 09/23/19 10:15 09/24/19 09:53 09/24/19 09:53 Sodium 135.5 L Potassium 3.4 L Chloride 96 L Carbon Dioxide 28 Anion Gap 12 BUN 30 H Creatinine 1.11 Est GFR ( Amer) > 60 Glucose 170 H Calcium 8.9 09/20/19 09/20/19 09/21/19 14:05 20:13 02:21 Troponin I 0.018 0.018 0.018 NT-Pro-B Natriuret Pep 1090 H 09/21/19 07:46 Troponin I < 0.012 NT-Pro-B Natriuret Pep 942 H Impressions: Chest X-Ray 09/20/19 13:57 IMPRESSION: NO ACUTE RADIOGRAPHIC FINDING IN THE CHEST. Assessment and Plan - Diagnosis (1) Acute GI bleeding Is this a current diagnosis for this admission?: Yes Plan: -Suspect upper source EGD on 09/23 showed nonbleeding ulcerations Flex sig on 09/23 showed inadequate bowel prep and will need to re-done when GI returns in the coming week Bowel prep continued (2) Acute on chronic systolic (congestive) heart failure Is this a current diagnosis for this admission?: Yes Plan: Admission: -Suspect this is the cause of his respiratory failure in addition to COPD exacerbation -Cardiology consulted -IV Lasix -Consider repeat echocardiogram BNP and troponin elevated however troponin is notably lower than previous values Continued on Lasix IV, additional IV Lasix available if blood products cause volume overload May consider repeat echocardiogram if he does not improve Respiratory failure becoming optimized for the upper and lower endoscopies GI as planned for the patient Heart failure symptoms seem to be back to baseline per patient; breathing is no longer labored (3) COPD exacerbation Is this a current diagnosis for this admission?: Yes (4) Normochromic anemia Is this a current diagnosis for this admission?: Yes (5) Atrial fibrillation Qualifiers: Atrial fibrillation type: permanent Qualified Code(s): I48.21 - Permanent atrial fibrillation Is this a current diagnosis for this admission?: Yes (6) CHF (congestive heart failure) Qualifiers: Heart failure type: systolic Heart failure chronicity: acute on chronic Qualified Code(s): I50.23 - Acute on chronic systolic (congestive) heart failure Is this a current diagnosis for this admission?: Yes (7) Psoriasis Is this a current diagnosis for this admission?: Yes (8) Acute blood loss anemia Is this a current diagnosis for this admission?: Yes - Time Time Spent with patient: 15-24 minutes Medications reviewed and adjusted accordingly: Yes Within: within 72 hours - Inpatient Certification I certify that my determination is in accordance with my understanding of Medicare's requirements for reasonable and necessary INPATIENT services [42 CFR 412.3e].: Yes Medical Necessity: Significant Comorbidiites Make Outpatient Treatment Too Risky, Need Close Monitoring Due to Risk of Patient Decompensation
[2019-09-24] MEDS: ATORVASTATIN CALCIUM 20 MG TABLET PO SCH (22:34)
[2019-09-24] MEDS: ROPINIROLE HCL 1 MG TABLET PO SCH (22:34)
[2019-09-24] MEDS: DIAZEPAM 5 MG TABLET PO SCH (22:35)
[2019-09-25] MEDS: IPRATROPIUM/ALBUTEROL 0.5-2.5 MG/3 ML AMPUL NEB SCH ×4 (01:47→19:42)
[2019-09-25] MEDS: LISINOPRIL 5 MG TABLET PO SCH (09:41)
[2019-09-25] MEDS: PREDNISONE 20 MG TABLET PO SCH (09:41)
[2019-09-25] MEDS: METOPROLOL SUCCINATE 25 MG TAB.SR.24H PO SCH (09:41)
[2019-09-25] MEDS: FERROUS SULFATE 325 MG TABLET PO SCH (09:41)
[2019-09-25] MEDS: CITALOPRAM HYDROBROMIDE 20 MG TABLET PO SCH (09:41)
[2019-09-25] MEDS: FUROSEMIDE INJ/PF 40 MG/4 ML SDV IV SCH ×2 (09:41→21:45)
[2019-09-25] MEDS ORDERED: PEG 3350/NA SULF,BICARB,CL/KCL 4000 ML PO PRN (12:00)
--- NOTE | 2019-09-25 13:40 | PDOC PROGRESS REPORT ---
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 fib on Xarelto, and COPD presents for severe dyspnea on exertion and shortness of breath. 09/21: Guaiac was not done until approximately midnight last night however repeat hemoglobin checks show gradual decline in blood count. Despite this, patient states he feels significantly better "100%" per patient. Still having some mild shortness of breath and MARIA but not that different from baseline per patient. Per nursing overnight, patient had a very hard rigid stool that caused some very mild bleeding on the stool. Patient denies any further blood loss since this bowel movement. 09/22: Per patient, feels significantly improved from a respiratory standpoint. No frankly bloody stools per patient but did have a black stool last night. No new complaints. Discussed with patient that he is iron deficient and he responded that he had stopped taking oral iron because he did not think he needed it. 09/23: Patient becoming agitated with nursing intermittently because he thinks they are helping him enough. I discussed this with the nurse and she stated patient was under the impression he could not get up by himself though he had been told this on more than one occasion. His states he simply feels good enough to start complaining now. Patient has no new complaints otherwise. Hemoglobin stable so far. Going to endoscopy today. 09/24: Patient apologized multiple times of being angry and upset with nursing yesterday. His breathing is improved and he is tolerating his bowel prep. No new complaints 09/25: Apparently, we do not have GI support here until Thursday and it seems that will be the earliest patient can have his repeat colonoscopy. He will need to be n.p.o. at midnight Thursday night and he can start bowel prep tomorrow. Reason For Visit: ANEMIA, CHF (CONGESTIVE HEART FAILURE),ATRIAL Physical Exam Vital Signs: Temp Pulse Resp BP Pulse Ox 97.3 F 70 14 114/52 L 100 09/25/19 12:00 09/25/19 12:00 09/25/19 12:00 09/25/19 12:00 09/25/19 12:00 Pulse Oximeter Continuous Start: 09/20/19 17:40 Freq: RTQ4 Status: Active Protocol: Document 09/25/19 07:50 LDA (Rec: 09/25/19 07:54 LDA [id number]) Pulse Oximetry Assessment Oxygen Saturation (92-100) 100 Oxygen Flow Rate (L/min) 2 Oxygen Delivery Method Nasal Cannula Fraction of Inspired Oxygen (FIO2) 28 Equipment Usage Equipment in Use Continuous SpO2 Machine # [id number] Intake & Output 09/24/19 09/25/19 09/26/19 06:59 06:59 06:59 Intake Total 1680 4747 Output Total 400 Balance 1680 4347 Weight 65.9 kg 67.4 kg General appearance: PRESENT: no acute distress, well-developed, well-nourished Respiratory exam: PRESENT: clear to auscultation luis. ABSENT: rales, rhonchi, wheezes Cardiovascular exam: PRESENT: RRR. ABSENT: diastolic murmur, rubs, systolic murmur GI/Abdominal exam: PRESENT: normal bowel sounds, soft. ABSENT: distended, guarding, mass, organolmegaly, rebound, tenderness Extremities exam: PRESENT: pedal edema - Trace Neurological exam: PRESENT: alert, awake Psychiatric exam: PRESENT: appropriate affect, normal mood Skin exam: PRESENT: dry, intact, warm, other - Excoriations are healing nicely now that his legs are slathered in Vaseline and he is no longer scratching them open Results Laboratory Results: 09/23/19 10:15 09/24/19 09:53 09/20/19 09/20/19 09/21/19 14:05 20:13 02:21 Troponin I 0.018 0.018 0.018 NT-Pro-B Natriuret Pep 1090 H 09/21/19 07:46 Troponin I < 0.012 NT-Pro-B Natriuret Pep 942 H Impressions: Chest X-Ray 09/20/19 13:57 IMPRESSION: NO ACUTE RADIOGRAPHIC FINDING IN THE CHEST. Assessment and Plan - Diagnosis (1) Acute GI bleeding Is this a current diagnosis for this admission?: Yes Plan: -Suspect upper source EGD on 09/23 showed nonbleeding ulcerations Flex sig on 09/23 showed inadequate bowel prep and will need to re-done when GI returns on 09/27, n.p.o. at midnight 09/26 and bowel prep to start again 09/26 as well Bowel prep per GI (2) Acute on chronic systolic (congestive) heart failure Is this a current diagnosis for this admission?: Yes Plan: Admission: -Suspect this is the cause of his respiratory failure in addition to COPD exacerbation -Cardiology consulted -IV Lasix -Consider repeat echocardiogram BNP and troponin elevated however troponin is notably lower than previous values Continued on Lasix IV, additional IV Lasix available if blood products cause volume overload May consider repeat echocardiogram if he does not improve Respiratory failure becoming optimized for the upper and lower endoscopies GI as planned for the patient Heart failure symptoms seem to be back to baseline per patient; breathing is no longer labored (3) COPD exacerbation Is this a current diagnosis for this admission?: Yes Plan: Admission: -Suspect this may have exacerbated patient's CHF as he is wheezing on admission and notably short of breath, coughing thick white sputum DuoNeb scheduled Continue home inhalers Pulmonary hygiene Supplement oxygen to goal 89 to 94% Schedule prednisone course completed 6 days, now stopped Significant improvement since starting above interventions, back to baseline from a respiratory standpoint per patient COPD symptoms back to baseline per patient, wheezing essentially resolved (4) Normochromic anemia Is this a current diagnosis for this admission?: Yes (5) Atrial fibrillation Qualifiers: Atrial fibrillation type: permanent Qualified Code(s): I48.21 - Permanent atrial fibrillation Is this a current diagnosis for this admission?: Yes (6) CHF (congestive heart failure) Qualifiers: Heart failure type: systolic Heart failure chronicity: acute on chronic Qualified Code(s): I50.23 - Acute on chronic systolic (congestive) heart failure Is this a current diagnosis for this admission?: Yes (7) Psoriasis Is this a current diagnosis for this admission?: Yes (8) Acute blood loss anemia Is this a current diagnosis for this admission?: Yes - Time Time Spent with patient: 15-24 minutes Anticipated discharge: Home Within: within 72 hours - Inpatient Certification Medical Necessity: Significant Comorbidiites Make Outpatient Treatment Too Risky - Waiting on GI to complete follow-up colonoscopy, Need Close Monitoring Due to Risk of Patient Decompensation
[2019-09-25] MEDS: DIAZEPAM 5 MG TABLET PO SCH (21:43)
[2019-09-25] MEDS: ROPINIROLE HCL 1 MG TABLET PO SCH (21:43)
[2019-09-25] MEDS: ATORVASTATIN CALCIUM 20 MG TABLET PO SCH (21:43)
[2019-09-26] MEDS: IPRATROPIUM/ALBUTEROL 0.5-2.5 MG/3 ML AMPUL NEB SCH ×4 (01:40→20:01)
[2019-09-26 10:16] LABS: HEMOGLOBIN 8.1 g/dL (13.5-17.0); MEAN CORPUSCULAR HEMOGLOBIN 30.8 pg (27.0-33.4); MEAN CORPUSCULAR HGB CONC 33.9 g/dL (32.0-36.0); MEAN CORPUSCULAR VOLUME 91 fl (80-97); PLATELET COUNT 221 10^3/uL (150-450); RED BLOOD COUNT 2.64 10^6/uL (4.35-5.55); RED CELL DISTRIBUTION WIDTH 17.4 % (11.5-14.0); WHITE BLOOD COUNT 9.4 10^3/uL (4.0-10.5)
[2019-09-26 11:21] LABS: ANION GAP 13 (5-19); BLOOD UREA NITROGEN 17 mg/dL (7-20); CALCIUM 8.8 mg/dL (8.4-10.2); CARBON DIOXIDE 28 mmol/L (22-30); CHLORIDE 95 mmol/L (98-107); GLUCOSE 168 mg/dL (75-110); POTASSIUM 3.5 mmol/L (3.6-5.0)
[2019-09-26] MEDS: METOPROLOL SUCCINATE 25 MG TAB.SR.24H PO SCH (11:25)
[2019-09-26] MEDS: FERROUS SULFATE 325 MG TABLET PO SCH (11:26)
[2019-09-26] MEDS: CITALOPRAM HYDROBROMIDE 20 MG TABLET PO SCH (11:26)
[2019-09-26] MEDS: LISINOPRIL 5 MG TABLET PO SCH (11:26)
[2019-09-26] MEDS: FUROSEMIDE INJ/PF 40 MG/4 ML SDV IV SCH ×2 (11:26→22:12)
--- NOTE | 2019-09-26 16:21 | PDOC PROGRESS REPORT ---
Subjective Progress Note for:: 09/26/19 Subjective:: Patient complains of getting confused and agitated yesterday and was able to calm down after a discussion with the nurse which he says was very helpful. Family endorses that patient has been having several of such similar episodes while outside the hospital for the past year and has also started having memory lapses. They are concerned for early onset dementia but patient has not been evaluated by a neurologist yet and has never undergone neuropsychiatric testing. Patient otherwise denies shortness of breath, chest pain. Patient does not know if there was blood in his last bowel movement. Reason For Visit: ANEMIA, CHF (CONGESTIVE HEART FAILURE),ATRIAL Physical Exam Vital Signs: Temp Pulse Resp BP Pulse Ox 98.1 F 68 20 131/53 H 100 09/26/19 13:15 09/26/19 14:31 09/26/19 14:31 09/26/19 13:15 09/26/19 14:31 Pulse Oximeter Continuous Start: 09/20/19 17:40 Freq: RTQ4 Status: Active Protocol: Document 09/26/19 15:36 LDA (Rec: 09/26/19 15:37 LDA [id number]) Pulse Oximetry Assessment Equipment Usage Equipment Standby Continuous SpO2 Machine # 1 Intake & Output 09/25/19 09/26/19 09/27/19 06:59 06:59 06:59 Intake Total 4747 1128 0 Output Total 400 Balance 4347 1128 0 Weight 67.4 kg 67.3 kg General appearance: PRESENT: no acute distress, cooperative Neck exam: ABSENT: JVD Respiratory exam: PRESENT: crackles - basilar, unlabored. ABSENT: tachypnea, wheezes Cardiovascular exam: PRESENT: RRR, +S1, +S2. ABSENT: tachycardia GI/Abdominal exam: PRESENT: normal bowel sounds, soft. ABSENT: rebound, rigid, tenderness Neurological exam: PRESENT: alert, awake Results Laboratory Results: 09/26/19 09:40 09/26/19 09:40 09/26/19 09/26/19 09:40 09:40 WBC 9.4 RBC 2.64 L Hgb 8.1 L Hct 24.0 L MCV 91 MCH 30.8 MCHC 33.9 RDW 17.4 H Plt Count 221 Sodium 135.8 L Potassium 3.5 L Chloride 95 L Carbon Dioxide 28 Anion Gap 13 BUN 17 Creatinine 1.04 Est GFR ( Amer) > 60 Glucose 168 H Calcium 8.8 09/20/19 09/20/19 09/21/19 14:05 20:13 02:21 Troponin I 0.018 0.018 0.018 NT-Pro-B Natriuret Pep 1090 H 09/21/19 07:46 Troponin I < 0.012 NT-Pro-B Natriuret Pep 942 H Impressions: Chest X-Ray 09/20/19 13:57 IMPRESSION: NO ACUTE RADIOGRAPHIC FINDING IN THE CHEST. Assessment and Plan - Diagnosis (1) Acute GI bleeding Is this a current diagnosis for this admission?: Yes Plan: EGD on 09/23 showed nonbleeding ulcerations -no H pylori or malignancy noted on biopsy Flex sig on 09/23 showed inadequate bowel prep and will need to re-done when GI returns on 09/27, n.p.o. at midnight 09/26 and bowel prep to start again 09/26 as well Bowel prep per GI with plans for repeat colonoscopy tomorrow -Continue Protonix (2) Acute blood loss anemia Is this a current diagnosis for this admission?: Yes Plan: -Hemoglobin dropped by about 3 g in past 1 year. There is suspicion that this could be due to GI bleeding. -Iron sulfate supplementation -Monitor H&H (3) Acute on chronic systolic (congestive) heart failure Is this a current diagnosis for this admission?: Yes Plan: BNP and troponin elevated however troponin is notably lower than previous values Continued on Lasix IV Heart failure symptoms seem to be back to baseline per patient; breathing is no longer labored (4) Atrial fibrillation Qualifiers: Atrial fibrillation type: permanent Qualified Code(s): I48.21 - Permanent atrial fibrillation Is this a current diagnosis for this admission?: Yes Plan: Holding Xarelto for possible GI bleed per GI recommendation. Timing restart per cardiology and GI. Pacemaker already in place. Functioning properly per patient. Continue holding Xarelto until GI deems it safe to restart this; cardiology okay with holding this medication (5) COPD (chronic obstructive pulmonary disease) Qualifiers: COPD type: unspecified COPD Qualified Code(s): J44.9 - Chronic obstructive pulmonary disease, unspecified Is this a current diagnosis for this admission?: Yes Plan: Currently no wheezing on my exam. Continue standing nebs today and then de-escalate to as needed (6) Acute delirium Is this a current diagnosis for this admission?: Yes Plan: Family suspects that this may be due to early onset dementia because he has been noted to have memory lapses and becoming very much forgetful in the past year. Monitor patient's behavior while addressing other potential medical causes for delirium including his anemia Redirection as needed. Ensure adequate sleep hygiene. Outpatient follow-up with a neurologist for neuropsychiatric testing recommended. - Time Time Spent with patient: 15-24 minutes
[2019-09-26] MEDS ORDERED: DIAZEPAM 5 MG TABLET PO PRN (16:29)
[2019-09-26] MEDS: POTASSIUM CHLORIDE 10 MEQ TABLET.ER PO SCH (18:51)
--- NOTE | 2019-09-26 19:20 | PDOC PROGRESS REPORT ---
Subjective Subjective:: Patient seen and examined. Bowel prep was inadequate and patient is going for endoscopy again. No major events reported. Patient does not report any dyspnea. Stool is dark. He received iron transfusion. Reason For Visit: ANEMIA, CHF (CONGESTIVE HEART FAILURE),ATRIAL Physical Exam Vital Signs: Temp Pulse Resp BP Pulse Ox 98.1 F 68 20 131/53 H 100 09/26/19 13:15 09/26/19 14:31 09/26/19 14:31 09/26/19 13:15 09/26/19 14:31 Pulse Oximeter Continuous Start: 09/20/19 17:40 Freq: RTQ4 Status: Active Protocol: Document 09/26/19 15:36 LDA (Rec: 09/26/19 15:37 LDA [id number]) Pulse Oximetry Assessment Equipment Usage Equipment Standby Continuous SpO2 Machine # 1 Intake & Output 09/25/19 09/26/19 09/27/19 06:59 06:59 06:59 Intake Total 4747 1128 790 Output Total 400 900 Balance 4347 1128 -110 Weight 67.4 kg 67.3 kg General appearance: PRESENT: cooperative, obese Head exam: PRESENT: atraumatic, normocephalic Eye exam: PRESENT: conjunctiva pale Respiratory exam: PRESENT: symmetrical, unlabored Cardiovascular exam: PRESENT: irregular rhythm, +S1, +S2, other - Left chest wall pacemaker site is well-healed. Pulses: PRESENT: normal radial pulses GI/Abdominal exam: PRESENT: soft Rectal exam: PRESENT: deferred Neurological exam: PRESENT: alert, awake, oriented to person, oriented to place, oriented to time Skin exam: PRESENT: dry, intact, normal color Results Laboratory Results: 09/26/19 09:40 09/26/19 09:40 09/26/19 09/26/19 09:40 09:40 WBC 9.4 RBC 2.64 L Hgb 8.1 L Hct 24.0 L MCV 91 MCH 30.8 MCHC 33.9 RDW 17.4 H Plt Count 221 Sodium 135.8 L Potassium 3.5 L Chloride 95 L Carbon Dioxide 28 Anion Gap 13 BUN 17 Creatinine 1.04 Est GFR ( Amer) > 60 Glucose 168 H Calcium 8.8 09/20/19 09/20/19 09/21/19 14:05 20:13 02:21 Troponin I 0.018 0.018 0.018 NT-Pro-B Natriuret Pep 1090 H 09/21/19 07:46 Troponin I < 0.012 NT-Pro-B Natriuret Pep 942 H Impressions: Chest X-Ray 09/20/19 13:57 IMPRESSION: NO ACUTE RADIOGRAPHIC FINDING IN THE CHEST. Assessment & Plan - Diagnosis (1) Anemia Qualifiers: Anemia type: unspecified type Qualified Code(s): D64.9 - Anemia, unspecified Is this a current diagnosis for this admission?: Yes Plan: Likely blood loss anemia given systemic anticoagulation and likely gradual onset Iron supplementation has been performed Patient is going for repeat endoscopy as bowel prep was inadequate. (2) Atrial fibrillation Qualifiers: Atrial fibrillation type: permanent Qualified Code(s): I48.21 - Permanent atrial fibrillation Is this a current diagnosis for this admission?: Yes Plan: Systemic anticoagulation is on hold. Patient has left upper chest wall permanent pacemaker. Rate control strategy only Systemic anticoagulation to be resumed when agreeable with GI based on endoscopy findings. (3) CHF (congestive heart failure) Qualifiers: Heart failure type: systolic Heart failure chronicity: acute on chronic Qualified Code(s): I50.23 - Acute on chronic systolic (congestive) heart failure Is this a current diagnosis for this admission?: Yes Plan: Likely decompensated heart failure exacerbated by anemia. Symptoms are much improved after blood transfusion. We will have to continue to monitor hematocrit.
[2019-09-26] MEDS ORDERED: DEXTROSE 50%-WATER 25 GM/50 ML DISP.SYRIN IV PRN ×2 (19:59)
[2019-09-26] MEDS ORDERED: GLUCAGON,HUMAN RECOMB 1 MG INJ SUBCUT PRN (19:59)
[2019-09-26] MEDS ORDERED: DEXTROSE 40% GEL 15 GM TUBE PO PRN ×2 (19:59)
[2019-09-26] MEDS: ATORVASTATIN CALCIUM 20 MG TABLET PO SCH (22:12)
[2019-09-26] MEDS: ROPINIROLE HCL 1 MG TABLET PO SCH (22:13)
[2019-09-27] MEDS: IPRATROPIUM/ALBUTEROL 0.5-2.5 MG/3 ML AMPUL NEB SCH ×4 (02:43→20:12)
[2019-09-27] MEDS: POTASSIUM CHLORIDE 10 MEQ TABLET.ER PO SCH (02:54)
[2019-09-27 06:12] LABS: HEMATOCRIT 25.9 % (37.9-51.0); HEMOGLOBIN 8.9 g/dL (13.5-17.0); MEAN CORPUSCULAR HGB CONC 34.3 g/dL (32.0-36.0); MEAN CORPUSCULAR VOLUME 90 fl (80-97); PLATELET COUNT 236 10^3/uL (150-450); RED BLOOD COUNT 2.86 10^6/uL (4.35-5.55); RED CELL DISTRIBUTION WIDTH 17.4 % (11.5-14.0); WHITE BLOOD COUNT 9.8 10^3/uL (4.0-10.5)
[2019-09-27 07:09] LABS: ANION GAP 9 (5-19); BLOOD UREA NITROGEN 16 mg/dL (7-20); CALCIUM 9.2 mg/dL (8.4-10.2); CARBON DIOXIDE 30 mmol/L (22-30); CHLORIDE 99 mmol/L (98-107); GLUCOSE 112 mg/dL (75-110)
[2019-09-27 07:21] LABS: POTASSIUM 4.7 mmol/L (3.6-5.0)
[2019-09-27] MEDS: LISINOPRIL 5 MG TABLET PO SCH (10:41)
[2019-09-27] MEDS: FERROUS SULFATE 325 MG TABLET PO SCH (10:41)
[2019-09-27] MEDS: METOPROLOL SUCCINATE 25 MG TAB.SR.24H PO SCH (10:41)
[2019-09-27] MEDS: CITALOPRAM HYDROBROMIDE 20 MG TABLET PO SCH (10:42)
[2019-09-27] MEDS: FUROSEMIDE INJ/PF 40 MG/4 ML SDV IV SCH (10:42)
[2019-09-27] MEDS ORDERED: MIDAZOLAM 2 MG/2 ML INJ ONE (11:49)
[2019-09-27] MEDS ORDERED: PROPOFOL INJ 200 MG/20 ML VIAL IV ONE (11:50)
[2019-09-27] MEDS ORDERED: PROMETHAZINE HCL INJ 25 MG/1 ML VIAL IV PRN (12:18)
[2019-09-27] MEDS ORDERED: FENTANYL CITRATE INJ/PF 100 MCG/2 ML AMPUL IV PRN ×3 (12:18)
--- NOTE | 2019-09-27 12:40 | Operative Report ---
Operative Report DATE OF SURGERY: 09/27/19 Operative Report: The risks, benefits and alternatives of the procedure including the risk of bleeding, perforation requiring surgery have been explained to the patient in detail and informed consent has been obtained. Patient is placed in a left, lateral decubital position. Timeout was called. Propofol medication is administered. Rectal examination is done which did not reveal any masses, tears or fissures. An Olympus videoscope was inserted into the patient's rectum. Scope was then carefully advanced all the way to the cecum. Cecum was identified by the usual anatomical landmarks including the ileocecal valve as well as the appendiceal office. Photodocumentation is obtained the scope was then sequentially pulled back via the various segments of the colon including the ascending colon, hepatic flexure, transverse colon, splenic flexure, descending colon and finally into the rectosigmoid portions of the colon. Retroflexion maneuvers performed. PREOPERATIVE DIAGNOSIS: Possible GI bleeding POSTOPERATIVE DIAGNOSIS: Diverticulosis without any evidence of diverticulitis or diverticular bleeding. Internal hemorrhoids. Rectal AVMs ablated in situ. Good prep. Colonoscopy performed to the cecum OPERATION: Colonoscopy with ablation SURGEON: JUNAID CAMPOS ANESTHESIA: LMAC TISSUE REMOVED OR ALTERED: None. COMPLICATIONS: None. ESTIMATED BLOOD LOSS: None. INTRAOPERATIVE FINDINGS: As noted above. PROCEDURE: Patient tolerated the procedure well. Patient is sent back to his room in good condition. Follow-up H&H and transfuse as needed. Can restart his anticoagulation carefully watch out for any other signs of bleeding. He had his upper endoscopy last week no sites of bleeding were noted Potentially he could have a small intestinal source but we do not have capsule endoscopy here at this institution. 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
--- NOTE | 2019-09-27 17:30 | PDOC PROGRESS REPORT ---
Subjective Progress Note for:: 09/27/19 Subjective:: Patient is doing well today. States that his breathing is fine. Denies any bloody stool yesterday. Denies any delirious episodes yesterday night. Reason For Visit: ANEMIA, CHF (CONGESTIVE HEART FAILURE),ATRIAL Physical Exam Vital Signs: Temp Pulse Resp BP Pulse Ox 97.2 F 73 18 117/35 L 97 09/27/19 13:11 09/27/19 14:22 09/27/19 14:22 09/27/19 13:11 09/27/19 16:13 Pulse Oximeter Continuous Start: 09/20/19 17:40 Freq: RTQ4 Status: Active Protocol: Document 09/27/19 16:13 NSM (Rec: 09/27/19 16:13 NSM [email or web address]) Pulse Oximetry Assessment Oxygen Saturation (92-100) 97 Oxygen Flow Rate (L/min) 1 Oxygen Delivery Method Nasal Cannula Fraction of Inspired Oxygen (FIO2) 24 Equipment Usage Equipment Standby Continuous SpO2 Machine # [id number] Intake & Output 09/26/19 09/27/19 09/28/19 06:59 06:59 06:59 Intake Total 1128 790 720 Output Total 1600 Balance 1128 -810 720 Weight 67.3 kg 67.5 kg General appearance: PRESENT: no acute distress, cooperative Neck exam: ABSENT: JVD Respiratory exam: PRESENT: crackles - Basilar, symmetrical, unlabored. ABSENT: tachypnea, wheezes Cardiovascular exam: PRESENT: RRR, +S1, +S2. ABSENT: tachycardia GI/Abdominal exam: PRESENT: normal bowel sounds, soft. ABSENT: rebound, rigid, tenderness Neurological exam: PRESENT: alert, awake, oriented to person, oriented to place, oriented to time Results Laboratory Results: 09/27/19 05:41 09/27/19 05:41 09/27/19 09/27/19 05:41 05:41 WBC 9.8 RBC 2.86 L Hgb 8.9 L Hct 25.9 L MCV 90 MCH 31.0 MCHC 34.3 RDW 17.4 H Plt Count 236 Sodium 138.3 Potassium 4.7 D Chloride 99 Carbon Dioxide 30 Anion Gap 9 BUN 16 Creatinine 1.09 Est GFR ( Amer) > 60 Glucose 112 H Calcium 9.2 09/20/19 09/20/19 09/21/19 14:05 20:13 02:21 Troponin I 0.018 0.018 0.018 NT-Pro-B Natriuret Pep 1090 H 09/21/19 07:46 Troponin I < 0.012 NT-Pro-B Natriuret Pep 942 H Impressions: Chest X-Ray 09/20/19 13:57 IMPRESSION: NO ACUTE RADIOGRAPHIC FINDING IN THE CHEST. Assessment and Plan - Diagnosis (1) Acute GI bleeding Is this a current diagnosis for this admission?: Yes Plan: EGD on 09/23 showed nonbleeding ulcerations -no H pylori or malignancy noted on biopsy Flex sig on 09/23 showed inadequate bowel prep and will need to re-done when GI returns on 09/27, n.p.o. at midnight 09/26 and bowel prep to start again 09/26 as well Colonoscopy today revealed diverticulosis as well as AV malformation which was ablated -Continue Protonix (2) Acute blood loss anemia Is this a current diagnosis for this admission?: Yes Plan: -Hemoglobin dropped by about 3 g in past 1 year but holding steady since h ospitalization. There is suspicion that this could be due to GI bleeding. -Iron sulfate supplementation -Monitor H&H (3) Acute on chronic systolic (congestive) heart failure Is this a current diagnosis for this admission?: Yes Plan: BNP and troponin elevated however troponin is notably lower than previous values Transition to p.o. Lasix twice daily starting this evening Heart failure symptoms seem to be back to baseline per patient; breathing is no longer labored (4) Atrial fibrillation Qualifiers: Atrial fibrillation type: permanent Qualified Code(s): I48.21 - Permanent atrial fibrillation Is this a current diagnosis for this admission?: Yes Plan: Plan to resume Xarelto tomorrow (5) COPD (chronic obstructive pulmonary disease) Qualifiers: COPD type: unspecified COPD Qualified Code(s): J44.9 - Chronic obstructive pulmonary disease, unspecified Is this a current diagnosis for this admission?: Yes Plan: Currently no wheezing on my exam. Continue standing nebs today and then de-escalate to as needed (6) Acute delirium Is this a current diagnosis for this admission?: Yes Plan: Family suspects that this may be due to early onset dementia because he has been noted to have memory lapses and becoming very much forgetful in the past year. Monitor patient's behavior while addressing other potential medical causes for delirium including his anemia Redirection as needed. Ensure adequate sleep hygiene. Outpatient follow-up with a neurologist for neuropsychiatric testing recommended. (7) AVM (arteriovenous malformation) of colon Is this a current diagnosis for this admission?: Yes Plan: See problem #1 - Time Time Spent with patient: 15-24 minutes
[2019-09-27] MEDS ORDERED: FUROSEMIDE 40 MG TABLET PO SCH (18:00)
--- NOTE | 2019-09-27 21:48 | PDOC PROGRESS REPORT ---
Subjective Progress Note for:: 09/27/19 Subjective:: Patient was seen and examined. He was up and ambulating without any difficulty. He had bowel prep for repeat endoscopy. No complaints voiced. Reason For Visit: ANEMIA, CHF (CONGESTIVE HEART FAILURE),ATRIAL Physical Exam Vital Signs: Temp Pulse Resp BP Pulse Ox 97.1 F 60 16 120/38 L 98 09/27/19 18:35 09/27/19 20:12 09/27/19 20:12 09/27/19 18:35 09/27/19 20:12 Pulse Oximeter Continuous Start: 09/20/19 17:40 Freq: RTQ4 Status: Active Protocol: Document 09/27/19 20:12 [facility] (Rec: 09/27/19 20:19 [facility] [email or web address]) Pulse Oximetry Assessment Oxygen Saturation (92-100) 98 Oxygen Flow Rate (L/min) 2.5 Oxygen Delivery Method Nasal Cannula Fraction of Inspired Oxygen (FIO2) 30 Equipment Usage Equipment Standby Continuous SpO2 Machine # N-1 Intake & Output 09/26/19 09/27/19 09/28/19 06:59 06:59 06:59 Intake Total 8655 491 3063 Output Total 1600 Balance 1128 -810 1440 Weight 67.3 kg 67.5 kg 67.5 kg General appearance: PRESENT: no acute distress, cooperative, hard of hearing Head exam: PRESENT: atraumatic, normocephalic Eye exam: PRESENT: conjunctiva pale, EOMI Mouth exam: PRESENT: moist Respiratory exam: PRESENT: clear to auscultation luis, symmetrical, unlabored Cardiovascular exam: PRESENT: irregular rhythm, +S1, +S2 Pulses: PRESENT: normal radial pulses Rectal exam: PRESENT: deferred Neurological exam: PRESENT: alert, awake, oriented to person, oriented to place, oriented to time Psychiatric exam: PRESENT: appropriate affect Skin exam: PRESENT: dry, intact Results Laboratory Results: 09/27/19 05:41 09/27/19 05:41 09/27/19 09/27/19 05:41 05:41 WBC 9.8 RBC 2.86 L Hgb 8.9 L Hct 25.9 L MCV 90 MCH 31.0 MCHC 34.3 RDW 17.4 H Plt Count 236 Sodium 138.3 Potassium 4.7 D Chloride 99 Carbon Dioxide 30 Anion Gap 9 BUN 16 Creatinine 1.09 Est GFR ( Amer) > 60 Glucose 112 H Calcium 9.2 09/20/19 09/20/19 09/21/19 14:05 20:13 02:21 Troponin I 0.018 0.018 0.018 NT-Pro-B Natriuret Pep 1090 H 09/21/19 07:46 Troponin I < 0.012 NT-Pro-B Natriuret Pep 942 H Impressions: Chest X-Ray 09/20/19 13:57 IMPRESSION: NO ACUTE RADIOGRAPHIC FINDING IN THE CHEST. Assessment & Plan - Diagnosis (1) Anemia Qualifiers: Anemia type: unspecified type Qualified Code(s): D64.9 - Anemia, unspecified Is this a current diagnosis for this admission?: Yes Plan: Endoscopy per gastrointestinal service If no active bleeding source and cleared by GI systemic anticoagulation can be resumed due to increased stroke risk on account of atrial fibrillation. If resumed we have to monitor hemoglobin and hematocrit carefully. (2) Atrial fibrillation Qualifiers: Atrial fibrillation type: permanent Qualified Code(s): I48.21 - Permanent atrial fibrillation Is this a current diagnosis for this admission?: Yes Plan: Systemic anticoagulation is on hold. Patient has left upper chest wall permanent pacemaker. Rate control strategy only Systemic anticoagulation to be resumed when agreeable with GI based on endoscopy findings. (3) CHF (congestive heart failure) Qualifiers: Heart failure type: systolic Heart failure chronicity: acute on chronic Q ualified Code(s): I50.23 - Acute on chronic systolic (congestive) heart failure Is this a current diagnosis for this admission?: Yes Plan: Likely decompensated heart failure exacerbated by anemia. Symptoms are much improved after blood transfusion. We will have to continue to monitor hematocrit.
[2019-09-27] MEDS: ATORVASTATIN CALCIUM 20 MG TABLET PO SCH (22:43)
[2019-09-27] MEDS: ROPINIROLE HCL 1 MG TABLET PO SCH (22:44)
[2019-09-28] MEDS: IPRATROPIUM/ALBUTEROL 0.5-2.5 MG/3 ML AMPUL NEB SCH ×2 (02:39→08:21)
[2019-09-28 04:35] LABS: HEMATOCRIT 24.4 % (37.9-51.0); HEMOGLOBIN 8.3 g/dL (13.5-17.0); MEAN CORPUSCULAR HEMOGLOBIN 30.8 pg (27.0-33.4); MEAN CORPUSCULAR VOLUME 90 fl (80-97); PLATELET COUNT 242 10^3/uL (150-450); RED BLOOD COUNT 2.69 10^6/uL (4.35-5.55); RED CELL DISTRIBUTION WIDTH 18.2 % (11.5-14.0); WHITE BLOOD COUNT 10.9 10^3/uL (4.0-10.5)
[2019-09-28 04:50] LABS: ANION GAP 9 (5-19); BLOOD UREA NITROGEN 22 mg/dL (7-20); CALCIUM 8.8 mg/dL (8.4-10.2); CARBON DIOXIDE 30 mmol/L (22-30); CHLORIDE 95 mmol/L (98-107); GLUCOSE 143 mg/dL (75-110); POTASSIUM 4.2 mmol/L (3.6-5.0)
[2019-09-28 09:08] VITALS: BP 127/41
[2019-09-28] MEDS: FERROUS SULFATE 325 MG TABLET PO SCH (09:13)
[2019-09-28] MEDS: CITALOPRAM HYDROBROMIDE 20 MG TABLET PO SCH (09:13)
[2019-09-28] MEDS: METOPROLOL SUCCINATE 25 MG TAB.SR.24H PO SCH (09:14)
[2019-09-28] MEDS: LISINOPRIL 5 MG TABLET PO SCH (09:14)
--- NOTE | 2019-09-28 09:17 | XCELERA REPORT ---
[address] [address] Transthoracic Echocardiogram Report Name: ANAHI DOWNING JR Age: 83 yrs Gender: Male : 1935 Patient Status: [facility]: 09/27/2019 02:41 PM History: CHF Atrial fibrillation Height: 71 in Weight: 148 lb BSA: 1.9 m2 Procedure: A complete two-dimensional transthoracic echocardiogram was performed (2D, M-mode, spectral and color flow Doppler). The study was technically difficult with many images being suboptimal in quality. Reason For Study: chf. Evaluated by Dr Hess Previous Evaluation: No previous studies were available. History: CAD. HTN. Atrial fibrillation. Ordering Physician: NADEGE MILLER Performed By: Klarissa Stubbs Interpretation Summary The study was technically difficult with many images being suboptimal in quality. Left ventricular systolic function is normal. The Ejection Fraction estimate is 60-65% The right ventricular systolic function is mildly reduced. There is mild aortic stenosis There is a mild to moderate amount of aortic regurgitation There is a mild amount of tricuspid regurgitation There is mild pulmonary hypertension by echo There is no pericardial effusion. MMode/2D Measurements & Calculations RVDd: 2.5 cm LVIDd: 4.0 cm FS: 27.9 % Ao root diam: 2.9 cm IVSd: 1.2 cm LVIDs: 2.9 cm EDV(Teich): 70.1 ml Ao root area: 6.7 cm2 LVPWd: 0.98 cm ESV(Teich): 31.8 ml LA dimension: 4.5 cm EF(Teich): 54.6 % Doppler Measurements & Calculations MV E max lincoln: MV P1/2t max lincoln: Ao V2 max: AI max lincoln: 99.4 cm/sec 161.0 cm/sec 266.0 cm/sec 354.3 cm/sec MV P1/2t: 61.0 msec Ao max PG: AI max PG: MVA(P1/2t): 3.6 cm2 28.3 mmHg 50.2 mmHg MV dec slope: Ao V2 mean: AI dec slope: 164.5 cm/sec 193.0 cm/sec2 773.0 cm/sec2 Ao mean PG: AI P1/2t: MV dec time: 0.28 sec13.1 mmHg 537.8 msec Ao V2 VTI: 53.3 cm LV V1 max PG: PA V2 max: TR max lincoln: AV P1/2t-pr_phl: 8.6 mmHg 85.9 cm/sec 272.8 cm/sec 541.6 msec LV V1 mean PG: PA max P.0 mmHg TR max P.9 mmHg 29.8 mmHg LV V1 max: 146.0 cm/sec LV V1 mean: 89.9 cm/sec LV V1 VTI: 27.5 cm MV P1/2t-pr_phl: 61.0 msec Left Ventricle The left ventricle is grossly normal size. There is mild to moderate concentric left ventricular hypertrophy. Left ventricular systolic function is normal. The Ejection Fraction estimate is 60-65%. LV diastolic function not assessed. No regional wall motion abnormalities noted. Right Ventricle The right ventricle is normal size. The right ventricular systolic function is mildly reduced. Atria The right atrium is mildly dilated. The left atrium is severely dilated. Mitral Valve The mitral valve leaflets are sclerotic, but show no functional abnormalities. There is a moderate amount of mitral regurgitation. Aortic Valve The aortic valve is calcified. The aortic valve is sclerotic, but shows no functional abnormality. There is mild aortic stenosis. Mean gradient 13 mm Hg. There is a mild to moderate amount of aortic regurgitation. Tricuspid Valve The tricuspid valve is normal in structure and function. There is a mild amount of tricuspid regurgitation. Right ventricular systolic pressure is estimated to be elevated at 30-40mmHg. There is mild pulmonary hypertension by echo. Pulmonic Valve The pulmonic valve is not well visualized. Great Vessels The aortic root is normal size. The inferior vena cava appeared normal. Effusions There is no pericardial effusion. : NADEGE MILLER Anil
--- NOTE | 2019-09-28 11:21 | PDOC DISCHARGE SUMMARY ---
Impression - Admit/DC Date/PCP Admission Date/Primary Care Provider: 09/20/19 16:28 DORETHA WHITAKER MD Discharge Date: 09/28/19 - Discharge Diagnosis (1) Acute GI bleeding Is this a current diagnosis for this admission?: Yes (2) Acute on chronic diastolic (congestive) heart failure Is this a current diagnosis for this admission?: Yes (3) Acute blood loss anemia Is this a current diagnosis for this admission?: Yes (4) Atrial fibrillation Is this a current diagnosis for this admission?: Yes (5) COPD (chronic obstructive pulmonary disease) Is this a current diagnosis for this admission?: Yes (6) Acute delirium Is this a current diagnosis for this admission?: Yes (7) AVM (arteriovenous malformation) of colon Is this a current diagnosis for this admission?: Yes - Assessment Summary: Patient was admitted for evaluation of shortness of breath which has been progressive. Chest x-ray revealed only mild pulmonary vascular congestion. Further evaluation revealed concerns for acute on chronic congestive heart failure. BNP was elevated at 1090. Patient was started on diuresis. There was also concern for blood loss anemia given that his hemoglobin had dropped 3 g in the past 1 year. Iron studies revealed significant iron deficiency and patient was continued on iron sulfate. Patient was evaluated by gastroenterology and taken for an upper endoscopy which revealed non-bleeding gastric erosions for which a biopsy revealed no evidence of H. pylori or malignancy. Flexible sigmoidoscopy was also done on that day 09/23/2019 but there was inadequate bowel prep limiting evaluation. Patient was rescheduled for colonoscopy that was performed on 09/27/2019 and revealed presence of diverticulosis and arteriovenous malformations which were ablated. It is likely that patient's hemoglobin drop was secondary to slow silent bleed from his arteriovenous malformation in the colon. In terms of patient's CHF, echocardiogram revealed normal ejection fraction of 60 to 65% with mild to moderate concentric LVH but diastolic view could not be assessed. RVSP was 30 to 40 mmHg but this was done after patient had tried to receive significant diuresis. At this time patient is stable for discharge and is being discharged home on p.o. Lasix 40 mg twice a day. Patient is being discharged in stable conditions to follow-up with his primary last puller Dr. Whitaker for continued management of his heart failure and for repeat basic metabolic panel and CBC to keep an eye on his renal function. Appointment has been scheduled. Patient will also follow-up in the office with Dr. Piedra and is being discharged on PPI. Hemoglobin has been stable while inpatient and anticoagulation has been resumed upon discharge. - Additional Information Resuscitation Status: Do Not Resuscitate Discharge Diet: Cardiac Discharge Activity: Activity As Tolerated Referrals: JUNAID PIEDRA MD [ACTIVE STAFF] - DORETHA WHITAKER MD [Primary Care Provider] - 10/06/19 2:15 pm (CHF) Prescriptions: Furosemide [Lasix 40 mg Tablet] 40 mg PO BID #60 tablet Rabeprazole Sodium 20 mg PO DAILY 30 Days cap. Metoprolol Succinate [Toprol Xl 25 mg Tab.sr] 12.5 mg PO DAILY #30 Home Medications: Atorvastatin Calcium [Lipitor 20 mg Tablet] 20 mg PO QHS 09/20/19 Citalopram Hydrobromide [Celexa 20 mg Tablet] 20 mg PO DAILY 09/20/19 Diazepam [Valium 5 mg Tablet] 5 mg PO QHS 09/20/19 Ferrous Sulfate [Feosol 325 mg Tablet] 325 mg PO DAILY 09/20/19 Lisinopril [Prinivil 10 mg Tablet] 10 mg PO DAILY 09/20/19 Metformin HCl [Glucophage 500 mg Tablet] 500 mg PO BID 09/20/19 Ropinirole HCl [Requip] 1.5 mg PO QHS 09/20/19 Furosemide [Lasix 40 mg Tablet] 40 mg PO BID #60 tablet 09/28/19 Metoprolol Succinate [Toprol Xl 25 mg Tab.sr] 12.5 mg PO DAILY #30 09/28/19 Rabeprazole Sodium 20 mg PO DAILY 30 Days cap 09/28/19 Rivaroxaban [Xarelto 10 mg Tablet] 20 mg PO QPM 09/28/19 History of Present Illiness History of Present Illness: ANAHI DOWNING JR is a 83 year old male who presents to the ER with 2 weeks of progressive shortness of breath/dyspnea on exertion/generalized fatigue and weakness/wheezing/cough productive of thick white mucus. Patient notes this is very similar to previous COPD exacerbations. 2 weeks ago, patient saw his last puller Dr. Whitaker who increased his oral Lasix dose for the patient's complaint of a cough which was unresolving. He did not notice much if any improvement and then developed progressive shortness of breath from there. Patient notes previously smoking 3 to 4 packs of cigarettes per day for many years but has quit several years ago. He uses multiple inhalers and nebulizer at home. Patient's notes he has stopped using his nebulizer about 1 to 2 months ago and seems to became worse after stopping this medication. He also has a very complicated cardiac history with significant heart failure, CAD status post multiple stents and a CABG in 2003. BNP notably elevated up to 1090, troponin lower than previous values. Also of note, patient's hemoglobin is dropped to 7.9 from 10.8 which was drawn approximately 1 year ago. Patient and family adamantly deny any history of GI bleed including currently. Patient does take Xarelto and denies missing any doses. GI consulted by ED. Admitted to [facility] for further work-up Physical Exam Vital Signs: Temp Pulse Resp BP Pulse Ox 98.2 F 75 18 127/41 H 100 09/28/19 09:08 09/28/19 09:08 09/28/19 09:08 09/28/19 09:08 09/28/19 09:08 Pulse Oximeter Continuous Start: 09/20/19 17:40 Freq: RTQ4 Status: Active Protocol: Document 09/28/19 08:23 NSM (Rec: 09/28/19 08:24 [facility] [id number]) Pulse Oximetry Assessment Oxygen Saturation (92-100) 98 Oxygen Flow Rate (L/min) 2 Oxygen Delivery Method Nasal Cannula Fraction of Inspired Oxygen (FIO2) 28 Equipment Usage Equipment Standby Continuous SpO2 Machine # [id number] Intake & Output 09/27/19 09/28/19 09/29/19 06:59 06:59 06:59 Intake Total 790 1660 Output Total 1600 500 Balance -810 1160 Weight 67.5 kg 68.6 kg General appearance: PRESENT: no acute distress, cooperative Respiratory exam: PRESENT: clear to auscultation luis Cardiovascular exam: PRESENT: +S1, +S2 Neurological exam: PRESENT: alert, awake, oriented to person, oriented to place Results Laboratory Results: WBC 10.9 10^3/uL (4.0-10.5) H 09/28/19 04:22 RBC 2.69 10^6/uL (4.35-5.55) L 09/28/19 04:22 Hgb 8.3 g/dL (13.5-17.0) L 09/28/19 04:22 Hct 24.4 % (37.9-51.0) L 09/28/19 04:22 MCV 90 fl (80-97) 09/28/19 04:22 MCH 30.8 pg (27.0-33.4) 09/28/19 04:22 MCHC 34.0 g/dL (32.0-36.0) 09/28/19 04:22 RDW 18.2 % (11.5-14.0) H 09/28/19 04:22 Plt Count 242 10^3/uL (150-450) 09/28/19 04:22 Lymph % (Auto) 10.5 % (13-45) L 09/23/19 10:15 [place] % (Auto) 7.1 % (3-13) 09/23/19 10:15 Eos % (Auto) 0.2 % (0-6) 09/23/19 10:15 Baso % (Auto) 0.2 % (0-2) 09/23/19 10:15 Reticulocyte # 0.133 10^6/uL (0.028-0.122) H 09/21/19 07:46 Absolute Neuts (auto) 9.3 10^3/uL (1.7-8.2) H 09/23/19 10:15 Absolute Lymphs (auto) 1.2 10^3/uL (0.5-4.7) 09/23/19 10:15 Absolute Monos (auto) 0.8 10^3/uL (0.1-1.4) 09/23/19 10:15 Absolute Eos (auto) 0.0 10^3/uL (0.0-0.6) 09/23/19 10:15 Absolute Basos (auto) 0.0 10^3/uL (0.0-0.2) 09/23/19 10:15 Seg Neutrophils % 82.0 % (42-78) H 09/23/19 10:15 Retic Count (auto) 5.79 % (0.66-2.85) H 09/21/19 07:46 PT 23.3 SEC (11.4-15.4) H 09/20/19 14:05 INR 2.03 09/20/19 14:05 APTT 39.5 SEC (23.5-35.8) H 09/20/19 14:05 VBG pH 7.46 (7.30-7.42) H 09/20/19 16:30 VBG pCO2 36.6 mmHg (35-63) 09/20/19 16:30 VBG HCO3 25.3 mmol/L (20-32) 09/20/19 16:30 VBG Base Excess 1.3 mmol/L 09/20/19 16:30 Sodium 133.6 mmol/L (137-145) L 09/28/19 04:22 Potassium 4.2 mmol/L (3.6-5.0) 09/28/19 04:22 Chloride 95 mmol/L (98-107) L 09/28/19 04:22 Carbon Dioxide 30 mmol/L (22-30) 09/28/19 04:22 Anion Gap 9 (5-19) 09/28/19 04:22 BUN 22 mg/dL (7-20) H 09/28/19 04:22 Creatinine 1.32 mg/dL (0.52-1.25) H 09/28/19 04:22 Est GFR ( Amer) > 60 (>60) 09/28/19 04:22 Est GFR (MDRD) Non-Af 52 (>60) L 09/28/19 04:22 Glucose 143 mg/dL (75-110) H 09/28/19 04:22 Calcium 8.8 mg/dL (8.4-10.2) 09/28/19 04:22 Magnesium 2.0 mg/dL (1.6-2.3) 09/21/19 07:46 Iron 39.5 ug/dL (49-181) L 09/21/19 07:46 TIBC 413 ug/dL (250-450) 09/21/19 07:46 % Saturation 10 % 09/21/19 07:46 Ferritin 20.00 ng/mL (17.9-464.0) 09/21/19 07:46 Total Bilirubin 0.4 mg/dL (0.2-1.3) 09/20/19 14:05 Direct Bilirubin 0.2 mg/dL (0.0-0.4) 09/20/19 14:05 Neonat Total Bilirubin Not Reportable 09/20/19 14:05 Neonat Direct Bilirubin Not Reportable 09/20/19 14:05 Neonat Indirect Bili Not Reportable 09/20/19 14:05 AST 23 U/L (17-59) 09/20/19 14:05 ALT 15 U/L (<50) 09/20/19 14:05 Alkaline Phosphatase 45 U/L (38-126) 09/20/19 14:05 Troponin I < 0.012 ng/mL 09/21/19 07:46 NT-Pro-B Natriuret Pep 942 pg/mL (<450) H 09/21/19 07:46 Total Protein 7.8 g/dL (6.3-8.2) 09/20/19 14:05 Albumin 4.1 g/dL (3.5-5.0) 09/20/19 14:05 Vitamin B12 994.0 pg/mL (239-931) H 09/21/19 07:46 Folate > 20.00 ng/mL (>2.76) 09/21/19 07:46 Urine Color YELLOW 09/20/19 17:47 Urine Appearance CLEAR 09/20/19 17:47 Urine pH 6.0 (5.0-9.0) 09/20/19 17:47 Ur Specific [place] 1.012 09/20/19 17:47 Urine Protein NEGATIVE mg/dL (NEGATIVE) 09/20/19 17:47 Urine Glucose (UA) NEGATIVE mg/dL (NEGATIVE) 09/20/19 17:47 Urine Ketones NEGATIVE mg/dL (NEGATIVE) 09/20/19 17:47 Urine Blood NEGATIVE (NEGATIVE) 09/20/19 17:47 Urine Nitrite NEGATIVE (NEGATIVE) 09/20/19 17:47 Urine Bilirubin NEGATIVE (NEGATIVE) 09/20/19 17:47 Urine Urobilinogen NEGATIVE mg/dL (<2.0) 09/20/19 17:47 Ur Leukocyte Esterase NEGATIVE (NEGATIVE) 09/20/19 17:47 Urine WBC (Auto) 0 /HPF 09/20/19 17:47 Urine RBC (Auto) 0 /HPF 09/20/19 17:47 U Hyaline Cast (Auto) 13 /LPF 09/20/19 17:47 Urine Mucus (Auto) RARE /LPF 09/20/19 17:47 Urine Ascorbic Acid NEGATIVE (NEGATIVE) 09/20/19 17:47 POC Stool Occult Blood POSITIVE (NEGATIVE) 09/21/19 00:43 Blood Type O POSITIVE 09/20/19 16:30 Blood Type Confirm O POSITIVE 09/20/19 17:04 Antibody Screen NEGATIVE 09/20/19 16:30 Crossmatch See Detail 09/20/19 16:30 09/20/19 09/20/19 09/21/19 14:05 20:13 02:21 Troponin I 0.018 0.018 0.018 NT-Pro-B Natriuret Pep 1090 H 09/21/19 07:46 Troponin I < 0.012 NT-Pro-B Natriuret Pep 942 H Impressions: Chest X-Ray 09/20/19 13:57 IMPRESSION: NO ACUTE RADIOGRAPHIC FINDING IN THE CHEST. Plan Time Spent: Less than 30 Minutes Stroke Is this a Stroke Patient?: No Acute Heart Failure - Is this a Heart Failure Patient?: Yes Documentation of LVEF assessment?: Yes LVEF < 40%?: No- if no continue to question #3 3. Anticoagulant therapy for permanect/persistent/paraoxysmal Afib or Aflutter: Yes Follow-up Appointment scheduled within 7 days?: Yes
== END 2019-09-28 12:55 | disposition home or self-care (01) | DRG 377 ==
LOC: ER 13:50 → EH 16:28 → 5 09-21 22:48
PROVIDERS: ADMIT Internal Medicine; ATTEND Internal Medicine
PROC: 30233N1 Transfusion of Nonautologous Red Blood Cells into Peripheral Vein, Percutaneous Approach (ICD-10-PCS; 2019-09-21)
PROC: 5A09557 Assistance with Respiratory Ventilation, Greater than 96 Consecutive Hours, Continuous Positive Airway Pressure (ICD-10-PCS; 2019-09-22)
PROC: 0DB78ZX Excision of Stomach, Pylorus, Via Natural or Artificial Opening Endoscopic, Diagnostic (ICD-10-PCS; 2019-09-23)
PROC: 0DJD8ZZ Inspection of Lower Intestinal Tract, Via Natural or Artificial Opening Endoscopic (ICD-10-PCS; 2019-09-23)
PROC: 0W3P8ZZ Control Bleeding in Gastrointestinal Tract, Via Natural or Artificial Opening Endoscopic (ICD-10-PCS; principal; 2019-09-27 12:00)
DX: K55.21 Angiodysplasia of colon with hemorrhage (principal); J96.01 Acute respiratory failure with hypoxia; I50.23 Acute on chronic systolic (congestive) heart failure; J44.1 Chronic obstructive pulmonary disease with (acute) exacerbation; D62 Acute posthemorrhagic anemia; I48.21 Permanent atrial fibrillation; R41.0 Disorientation, unspecified; K57.31 Diverticulosis of large intestine without perforation or abscess with bleeding; I25.10 Atherosclerotic heart disease of native coronary artery without angina pectoris; E78.5 Hyperlipidemia, unspecified; I11.0 Hypertensive heart disease with heart failure; G47.30 Sleep apnea, unspecified; Z66 Do not resuscitate; E11.9 Type 2 diabetes mellitus without complications; K29.71 Gastritis, unspecified, with bleeding; F41.1 Generalized anxiety disorder; F32.9 Major depressive disorder, single episode, unspecified; F10.20 Alcohol dependence, uncomplicated; L40.9 Psoriasis, unspecified; K64.8 Other hemorrhoids; K25.4 Chronic or unspecified gastric ulcer with hemorrhage; Z79.899 Other long term (current) drug therapy; Z79.84 Long term (current) use of oral hypoglycemic drugs; Z87.891 Personal history of nicotine dependence; Z95.1 Presence of aortocoronary bypass graft; Z95.5 Presence of coronary angioplasty implant and graft; Z79.01 Long term (current) use of anticoagulants; Z95.0 Presence of cardiac pacemaker; Z85.46 Personal history of malignant neoplasm of prostate; Z92.3 Personal history of irradiation; Z88.6 Allergy status to analgesic agent; Z91.19 Patient's noncompliance with other medical treatment and regimen
CPT/HCPCS: 00811; 00813; 36415; 36430; 43239; 45378; 45382; 71045; 80048; 80053; 81001; 82607; 82728; 82746; 82803; 83540; 83550; 83735; 83880; 84484; 85025; 85027; 85045; 85610; 85730; 86850; 86900; 86901; 86920; 88305; 93005; 93010; 93306; 94640; 94660; 94762; 99285; J1756; J1940; J2250; J2704; J3490; J7050; J7512; J7620; P9016

== ENCOUNTER 2020-03-07 14:00 | Emergency (ER) | payer MEDICARE, BC ==
[2020-03-07 14:07] VITALS: BP 125/51
--- NOTE | 2020-03-07 14:12 | ER Document Report ---
ED Medical Screen (RME) - General Chief Complaint: Nose Bleed Stated Complaint: NOSE BLEED Time Seen by Provider: 03/07/20 14:09 Primary Care Provider: DORETHA VERA MD [Primary Care Provider] - Follow up as needed Notes: This is an 84-year-old male who is on Xarelto the presents to the emergency room for epistasis which started last evening and is still occurring dripping down the back of his throat. TRAVEL OUTSIDE OF THE [place] IN LAST 30 DAYS: No - Related Data Allergies/Adverse Reactions: oxycodone [From OxyContin] Allergy (Verified 03/07/20 14:09) Past Medical History - Past Medical History Cardiac Medical History: Reports: Hx Atrial Fibrillation, Hx Congestive Heart Failure, Hx Coronary Artery Disease, Hx Hypertension Pulmonary Medical History: Reports: Hx COPD, Hx Sleep Apnea Endocrine Medical History: Reports: Hx Diabetes Mellitus Type 2 Renal/ Medical History: Denies: Hx Peritoneal Dialysis Malignancy Medical History: Reports Hx Prostate Cancer Skin Medical History: Reports Hx Psoriasis Psychiatric Medical History: Reports: Hx Anxiety, Hx Depression Past Surgical History: Reports: Hx Cardiac Catheterization, Hx Cardiac Surgery, Hx Coronary Artery Bypass Graft, Hx Herniorrhaphy, Hx Pacemaker Physical Exam - Vital signs Vitals: Temp Pulse Resp BP Pulse Ox 98.1 F 72 16 125/51 L 99 03/07/20 14:06 03/07/20 14:06 03/07/20 14:06 03/07/20 14:06 03/07/20 14:06 Course - Vital Signs Vital signs: Temp Pulse Resp BP Pulse Ox 98.1 F 72 16 125/51 L 99 03/07/20 14:06 03/07/20 14:06 03/07/20 14:06 03/07/20 14:06 03/07/20 14:06 Doctor's Discharge - Discharge Referrals: DORETHA VERA MD [Primary Care Provider] - Follow up as needed
[2020-03-07 15:16] LABS: INTERNATIONAL RATION (INR) 1.68
[2020-03-07] MEDS ORDERED: OXYMETAZOLINE HCL 0.05% NASAL SPRAY 15 ML BOTTLE NASL ONE (16:11)
[2020-03-07] MEDS ORDERED: OXYMETAZOLINE HCL 0.05% NASAL SPRAY 15 ML BOTTLE ONE (16:11)
--- NOTE | 2020-03-07 17:02 | ER Document Report ---
ED General - General Chief Complaint: Nose Bleed Stated Complaint: NOSE BLEED Time Seen by Provider: 03/07/20 14:09 Primary Care Provider: DORETHA VERA MD [ACTIVE PROVISIONAL STAFF] - Follow up as needed TRAVEL OUTSIDE OF THE [place] IN LAST 30 DAYS: No - HPI Onset: Other - last night Onset/Duration: Sudden Quality of pain: No pain Severity: Mild Pain Level: Denies Associated symptoms: None Exacerbated by: Denies Relieved by: Denies Similar symptoms previously: Yes Recently seen / treated by doctor: No Notes: 84 year old male with a history of AFib on Xarelto, CAD, CHF, HTN, DM, COPD, Prostate CA, Anxiety, Depression here in the for a left sided nose bleed. The patient says his left nose has been bleeding since last night. The patient has tried to use a tissue with direct pressure with some relief. The patient denies weakness, dizziness, light headedness. The patient says he thinks his home O2 is what caused his nose to bleed since it dries his nose out. The patient has tried using moisturizing ointments but he says they dry up too quickly at night. - Related Data Allergies/Adverse Reactions: oxycodone [From OxyContin] Allergy (Verified 03/07/20 14:09) Past Medical History - General Information source: Patient - Social History Smoking Status: Former Smoker Frequency of alcohol use: None Drug Abuse: None Family History: Reviewed & Not Pertinent, CAD Patient has suicidal ideation: No Patient has homicidal ideation: No - Past Medical History Cardiac Medical History: Reports: Hx Atrial Fibrillation, Hx Congestive Heart Failure, Hx Coronary Artery Disease, Hx Hypertension Pulmonary Medical History: Reports: Hx COPD, Hx Sleep Apnea Endocrine Medical History: Reports: Hx Diabetes Mellitus Type 2 Renal/ Medical History: Denies: Hx Peritoneal Dialysis Malignancy Medical History: Reports Hx Prostate Cancer Skin Medical History: Reports Hx Psoriasis Psychiatric Medical History: Reports: Hx Anxiety, Hx Depression Past Surgical History: Reports: Hx Cardiac Catheterization, Hx Cardiac Surgery, Hx Coronary Artery Bypass Graft, Hx Herniorrhaphy, Hx Pacemaker Review of Systems - Review of Systems Constitutional: No symptoms reported EENT: Other - left sided nose bleed Cardiovascular: No symptoms reported Respiratory: No symptoms reported Gastrointestinal: No symptoms reported Genitourinary: No symptoms reported Male Genitourinary: No symptoms reported Musculoskeletal: No symptoms reported Skin: No symptoms reported Hematologic/Lymphatic: No symptoms reported Neurological/Psychological: No symptoms reported -: Yes All other systems reviewed and negative Physical Exam - Vital signs Vitals: Temp Pulse Resp BP Pulse Ox 98.1 F 72 16 125/51 L 99 03/07/20 14:06 03/07/20 14:03/07/20 14:03/07/20 14:03/07/20 14:06 - Notes Notes: GENERAL: Well-appearing, well-nourished and in no acute distress. HEAD: Atraumatic, normocephalic. EYES: Pupils equal round and reactive to light, extraocular movements intact, sclera anicteric, conjunctiva are normal. ENT: External ears normal, Left nare with clot in it which I had him blow out. Once clot removed area where bleeding originated seen on anterior septum. oropharynx clear without exudates. Moist mucous membranes. NECK: Normal range of motion, supple without lymphadenopathy or JVD. LUNGS: Breath sounds clear to auscultation bilaterally and equal. No wheezes rales or rhonchi. HEART: Regular rate and rhythm without murmurs, rubs or gallops. ABDOMEN: Soft, nontender, normoactive bowel sounds. No guarding, no rebound. No masses appreciated. EXTREMITIES: Normal range of motion, no pitting or edema. No clubbing or cyanosis. NEUROLOGICAL: Cranial nerves II through XII grossly intact. Normal speech, normal gait. PSYCH: Normal mood, normal affect. SKIN: Warm, Dry, normal turgor, no rashes or lesions noted. Course - Re-evaluation Re-evalutation: 03/07/20 16:56 The patient blew his nose clear blood clots and he also cleared his throat of a blood clot. Afrin was applied and pressure was held by the patient with a tissue. Bleeding completely stopped. Patient DCed with a bottle of Afrin. - Vital Signs Vital signs: Temp Pulse Resp BP Pulse Ox 98.1 F 72 16 125/51 L 99 03/07/20 14:09 03/07/20 14:03/07/20 14:03/07/20 14:03/07/20 14:06 - Laboratory Laboratory results interpreted by me: 03/07/20 14:40 PT 20.0 H Discharge - Discharge Clinical Impression: Bleeding nose Condition: Stable Disposition: HOME, SELF-CARE Instructions: Nosebleed Instructions ([facility]) Additional Instructions: Use Afrin as needed for future nose bleeds. Keep your nasal passages moist with vaseline or other ointments. Follow up with your primary care doctor. Consider follow up with an ENT Doctor if you continue to have nose bleeds. Prescriptions: Oxymetazoline HCl [Afrin 0.05% Nasal [place] 15 ml Bottle] 1 spray NASL ASDIR PRN #1 bottle PRN Reason: Referrals: DORETHA VERA MD [ACTIVE PROVISIONAL STAFF] - Follow up as needed JOSIAS WALKER MD [ACTIVE STAFF] - Follow up as needed
== END 2020-03-07 17:23 | disposition home or self-care (01) ==
LOC: ER 14:00
DX: R04.0 Epistaxis (principal); I48.91 Unspecified atrial fibrillation; I50.9 Heart failure, unspecified; I11.0 Hypertensive heart disease with heart failure; E11.9 Type 2 diabetes mellitus without complications; J44.9 Chronic obstructive pulmonary disease, unspecified; Z79.02 Long term (current) use of antithrombotics/antiplatelets; Z85.46 Personal history of malignant neoplasm of prostate; Z88.6 Allergy status to analgesic agent; Z95.1 Presence of aortocoronary bypass graft
CPT/HCPCS: 99283; 36415; 85610; A9270; J3490

== ENCOUNTER → 2020-06-21 | Outpatient (CLI) | payer MEDICARE, BC ==
--- NOTE | 2020-06-21 16:08 | RADIOLOGY REPORT (SQ) ---
EXAM DESCRIPTION: BONE SURVEY COMPLETE IMAGES COMPLETED DATE/TIME: 06/21/2020 3:28 pm REASON FOR STUDY: D50.9 IRON DEFICIENCY ANEMIA, UNSPECIFIED D50.9 IRON DEFICIENCY ANEMIA, UNSPECIFI ED COMPARISON: None. TECHNIQUE: Images of the axial and proximal appendicular skeleton are obtained, along with lateral s kull and frontal chest films. LIMITATIONS: None. FINDINGS: AP CHEST: No bony findings. Lungs are clear. LATERAL SKULL: No worrisome bone lesions. AP BOTH HUMERI: No worrisome bone lesions. TWO-VIEW LUMBAR SPINE: No worrisome bone lesions. TWO-VIEW THORACIC SPINE: No worrisome bone lesions. AP PELVIS: No worrisome bone lesions. AP BOTH FEMURS: No worrisome bone lesions. OTHER: There are degenerative disc changes and there is spondylosis in the spine. Degenerative joint changes seen in the knees. IMPRESSION: Degenerative changes in the spine. Degenerative joint disease. No concerning osseous l esions. TECHNICAL DOCUMENTATION: JOB ID: [id number] [employer]- All Rights Reserved Reading location - IP/workstation name: [email or web address]
== END ==
LOC: RAD 14:40
PROVIDERS: ATTEND Internal Medicine Hematology & Oncology
DX: D50.9 Iron deficiency anemia, unspecified (principal); C61 Malignant neoplasm of prostate; M17.0 Bilateral primary osteoarthritis of knee
CPT/HCPCS: 77075